=== PATIENT | male | born 1960 | race Caucasian/White ===

== ENCOUNTER 2020-06-11 13:15 | Observation (INO) | payer OTHER ==
[2020-06-11] MEDS ORDERED: ADENOSINE 6 MG/ 2ML VIAL IV ONE ×3 (13:39→13:41)
[2020-06-11] MEDS ORDERED: NA CHLORIDE 0.9% 1,000 ML ONE (13:39)
[2020-06-11 13:46] LABS: Basophils % 0.6 % (0-1.3); Hematocrit 47.7 % (39.6-49.0); Lymphocytes % 40.5 % (15.3-44.8); Protime INR 1.2; RBC Red Blood Cell Count 4.75 M/uL (4.33-5.43)
[2020-06-11] MEDS ORDERED: MIDAZOLAM HCL 2 MG/2 ML INJ ONE (13:48)
[2020-06-11] MEDS ORDERED: FENTANYL CITR 100 MCG/2 ML ONE (13:48)
[2020-06-11] MEDS ORDERED: MAGNESIUM SULFATE 1 gm IVPB 1 GM/100 ML BAG IV ONE (13:57)
[2020-06-11] MEDS ORDERED: METOPROLOL TAR 50 MG TAB ONE (13:59)
[2020-06-11 14:24] LABS: ALT/SGPT 57 U/L (12-78); Albumin 3.8 g/dL (3.4-5.0); Alkaline Phosphatase 68 U/L (45-117); BUN Blood Urea Nitrogen 8 mg/dL (7-18); Bicarbonate 25 mmol/L (21-32); Bilirubin Direct 0.8 mg/dL (0-0.2); Glucose Level 101 mg/dL (74-106); NT PRO-BNP 2687 pg/mL (<125); Protein, Total 8.2 g/dL (6.4-8.2); Sodium Level 141 mmol/L (136-145); Thyroid Stimulating Hormone 0.947 uIU/mL (0.360-3.740); Troponin (Emerg Dept Use Only) < 0.02 ng/mL (0.0-0.045)
[2020-06-11 14:25] LABS: AST/SGOT 82 U/L (15-37); Magnesium 1.8 mg/dL (1.8-2.4)
--- NOTE | 2020-06-11 14:54 | ER ---
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 Denies HX of heart ca1 attack. Reports Palpitations. Reports dizziness and lightheadness. States, "chest pain after lifting a stack of plywood, I got dizzy, almost blacked out and had severe chest pain since". 13:18 Coronavirus screen: Client denies travel out of the [place] in the last 14 days. At this ca1 time, the client does not indicate any symptoms associated with coronavirus-19. 13:18 Method Of Arrival: Wheelchair ca1 13:37 Ebola Screen: Patient denies travel to an Ebola-affected area in the 21 days before tw2 illness onset. Initial Sepsis Screen: Does the patient meet any 2 criteria? HR > 90 bpm. No. Patient's initial sepsis screen is negative. Does the patient have a suspected source of infection? No. Patient's initial sepsis screen is negative. Risk Assessment: Do you want to hurt yourself or someone else? Patient reports no desire to harm self or others. Onset of symptoms was June 11, 2020. 13:37 Acuity: RODNEY 1 tw2 Historical: - Allergies: 14:26 No Known Allergies; vg1 - Home Meds: 14:26 Xanax 0.25 mg oral tab [Active]; [place] 5-325 mg Oral tab [Active]; vg1 - PMHx: 14:26 Palpitations; Anxiety; Restless leg syndrome; vg1 - PSHx: 14:26 Disc surgery; Skull plates; vg1 - Immunization history:: Adult Immunizations up to date, Flu vaccine is up to date. - Social history:: Smoking status: Patient reports the use of cigarette tobacco products, smokes one-half pack cigarettes per day. Screenin:17 Abuse screen: Denies threats or abuse. Nutritional screening: No deficits noted. jl7 Tuberculosis screening: No symptoms or risk factors identified. Fall Risk None identified. Assessment: 13:20 General: Appears distressed, uncomfortable, Behavior is cooperative, anxious. Pain: vg1 Complains of pain in chest Pain does not radiate. Pain currently is 10 out of 10 on a pain scale. Pain began 2 hours ago. 13:20 Neuro: Level of Consciousness is awake, alert, obeys commands, Oriented to person, vg1 place, time, situation. Cardiovascular: Patient's skin is warm and dry. Pulses are all present. Respiratory: Reports shortness of breath patient placed on O2 at 3L NC Airway is patent Respiratory effort is even, unlabored, Respiratory pattern is regular, symmetrical, tachypnea. GI: No signs and/or symptoms were reported involving the gastrointestinal system. : No signs and/or symptoms were reported regarding the genitourinary system. EENT: No signs and/or symptoms were reported regarding the EENT system. Derm: Skin is intact, is healthy with good turgor, Skin is pink, warm \\T\\ dry. Musculoskeletal: Range of motion: intact in all extremities. 13:46 Reassessment: Received v/o from Dr Mcknight to administer metoprolol 50mg PO x1. vg1 14:05 Reassessment: Patient reports pain level 0/10. States feels better. vg1 15:00 Reassessment: Patient appears in no apparent distress at this time. Patient is alert, vg1 oriented x 3, equal unlabored respirations, skin warm/dry/pink. 16:15 Reassessment: Patient appears in no apparent distress at this time. Patient is alert, vg1 oriented x 3, equal unlabored respirations, skin warm/dry/pink. Patient states feeling better. 16:28 Reassessment: Gave report to Tavia TRAN. vg1 Vital Signs: 13:18 BP 101 / 65; Pulse 205; Resp 19; Pulse Ox 99% on R/A; tw2 13:18 Temp 97.9(O); tw2 13:32 Pulse 223; tw2 13:35 BP 107 / 85; Pulse 224; Resp 36; Pulse Ox 99% on 3 lpm NC; tw2 13:44 BP 160 / 108; Pulse 104; Resp 24 S; Pulse Ox 100% on 2 lpm NC; iw 14:27 BP 141 / 92; Pulse 82; Resp 19; Pulse Ox 100% ; jl7 14:45 BP 116 / 70; Pulse 68; Resp 12; Pulse Ox 100% on 2 lpm NC; jl7 14:48 Weight 88.45 kg (R); Height 6 ft. 0 in. (182.88 cm) (R); tw2 15:00 BP 94 / 83; Pulse 58; Resp 12; Pulse Ox 100% on 2 lpm NC; jl7 15:05 BP 94 / 83; Pulse 64; Resp 14; Pulse Ox 100% on 2 lpm NC; vg1 15:15 BP 127 / 95; Pulse 65; Resp 12; Pulse Ox 100% on R/A; jl7 15:30 BP 120 / 85; Pulse 62; Resp 12; Pulse Ox 99% on 2 lpm NC; jl7 15:45 BP 118 / 88; Pulse 60; Resp 14; Pulse Ox 99% on 2 lpm NC; jl7 16:00 BP 131 / 89; Pulse 62; Resp 12; Pulse Ox 100% on 2 lpm NC; jl7 14:48 Body Mass Index 26.45 (88.45 kg, 182.88 cm) tw2 13:18 provider at bedside, pt on EKG machine at this time. tw2 13:[address] Mcknight at bedside at this time. tw2 ED Course: 13:15 Patient arrived in ED. as 13:17 Patient has correct armband on for positive identification. Placed in gown. Bed in low jl7 position. Call light in reach. Side rails up X2. substation superintendent on. Pulse ox on. NIBP on. 13:17 Placed in gown. Bed in low position. substation superintendent on. Pulse ox on. NIBP on. pt tw2 placed on Coullck monitor at this time. 13:19 Jame Davalos NP is PHCP. pm1 13:19 Will Mcknight MD is Attending Physician. pm1 13:19 Inserted saline lock: 20 gauge in left antecubital area, using aseptic technique. tw2 ,using aseptic technique. CHELSEA Mar Blood collected. 13:19 Arm band placed on. tw2 13:20 Missed attempt(s): 20 gauge in right forearm. Bleeding controlled, band aid applied, tw2 catheter tip intact. Missed attempt(s): 20 gauge in right antecubital area. by CHELSEA King. Bleeding controlled, band aid applied, catheter tip intact. Patient maintains SpO2 saturation greater than 95% on room air. 13:37 Triage completed. tw2 13:38 Assist provider with cardioversion (synchronized) for treatment of SVT with 200 joules iw X 1. Set up for procedure. Performed by Will Mcknight MD Monitored with director of cardiac cath lab, pulse ox, Life Scottie . Post procedure rhythm is sinus rhythm. Patient tolerated well. 13:50 Sarai Banegas, CHELSEA is Primary Nurse. vg1 14:53 Saman Moore DO is Hospitalizing Provider. pm1 16:30 Patient admitted, IV remains in place. vg1 Administered Medications: 13:20 Drug: NS 0.9% 1000 ml Route: IV; Rate: 1000 ml; Site: left antecubital; iw 16:16 Follow up: IV Status: Completed infusion; IV Intake: 1000ml jl7 13:25 Drug: Adenocard 6 mg Route: IVP; Site: left antecubital; iw 16:17 Follow up: Response: Cardiac rhythm changed jl7 13:30 Drug: Adenocard 12 mg Route: IVP; Site: left antecubital; iw 16:15 Follow up: Response: Cardiac rhythm is unchanged jl7 13:43 Drug: Magnesium Sulfate 1 grams Route: IVPB; Infused Over: 1 hrs; Site: left iw antecubital; 16:16 Follow up: IV Status: Completed infusion; IV Intake: 100ml jl7 13:49 Drug: Metoprolol 50 mg Route: PO; vg1 15:05 Follow up: BP 94 / 83; Pulse 64 bpm; Resp 14 bpm; Pulse Ox 100% 2 lpm Nasal Cannula vg1 13:57 Not Given (Duplicate Order): Metoprolol TARTRATE (Lopressor) 50 mg PO once iw 15:00 Drug: Lovenox 1 mg/kg Route: Sub-Q; Site: right lower abdomen; vg1 16:14 Follow up: Response: No adverse reaction jl7 Intake: 16:16 IV: 100ml; Total: 100ml. jl7 16:16 IV: 1000ml; Total: 1100ml. jl7 Outcome: 14:53 Decision to Hospitalize by Provider. pm1 16:28 Admitted to Tele accompanied by tech, via stretcher, room 219, with oxygen, Report vg1 called to Syeda TRAN 16:28 Condition: stable 16:28 Instructed on the need for admit. 16:31 Patient left the ED. 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 Denies HX of heart ca1 attack. Reports Palpitations. Reports dizziness and lightheadness. States, "chest pain after lifting a stack of plywood, I got dizzy, almost blacked out and had severe chest pain since" ca1
--- NOTE | 2020-06-11 14:54 | EDPHYS ---
Physician Documentation [facility] Name: Joe Ricks Age: 60 yrs Sex: Male : 1960 Arrival Date: 06/11/2020 Time: 13:15 Bed 3 Private MD: ED Physician Will Mcknight HPI: 06/11 13:29 This 60 yrs old Male presents to ER via Wheelchair with complaints of Chest pm1 Pain. 13:29 The patient or guardian reports chest pain that is located primarily in the mid-sternal pm1 area. Onset: 1 hour(s) ago. The pain does not radiate. Associated signs and symptoms: Pertinent positives: dizziness, near-syncope, palpitations, shortness of breath, Pertinent negatives: abdominal pain, headache. The chest pain is described as a pressure. Duration: The patient or guardian reports a single episode, that is still ongoing. Modifying factors: The symptoms are alleviated by nothing. the symptoms are aggravated by Onset after lifting. Severity of pain: in the emergency department the pain is unchanged. Last episode of palpitations was about 8 months ago that self resolved after talking a walk. The patient has not recently seen a physician, the patient's primary care provider is Dr. Mays. Historical: - Allergies: 14:26 No Known Allergies; vg1 - Home Meds: 14:26 Xanax 0.25 mg oral tab [Active]; [place] 5-325 mg Oral tab [Active]; vg1 - PMHx: 14:26 Palpitations; Anxiety; Restless leg syndrome; vg1 - PSHx: 14:26 Disc surgery; Skull plates; vg1 - Immunization history:: Adult Immunizations up to date, Flu vaccine is up to date. - Social history:: Smoking status: Patient reports the use of cigarette tobacco products, smokes one-half pack cigarettes per day. ROS: 14:29 Constitutional: Negative for fever, chills, and weight loss, Eyes: Negative for injury, pm1 pain, redness, and discharge, ENT: Negative for injury, pain, and discharge, Neck: Negative for injury, pain, and swelling. 14:29 Abdomen/GI: Negative for abdominal pain, nausea, vomiting, diarrhea, and constipation, Back: Negative for injury and pain, MS/Extremity: Negative for injury and deformity, Skin: Negative for injury, rash, and discoloration. 14:29 Cardiovascular: Positive for chest pain, palpitations, Negative for edema. 14:29 Respiratory: Positive for shortness of breath, Negative for 14:29 Neuro: Positive for dizziness, near syncope. Exam: 14:29 Head/Face: Normocephalic, atraumatic. pm1 14:29 Back: No spinal tenderness. No costovertebral tenderness. Full range of motion. Skin: Warm, dry with normal turgor. Normal color with no rashes, no lesions, and no evidence of cellulitis. MS/ Extremity: Pulses equal, no cyanosis. Neurovascular intact. Full, normal range of motion. 14:29 Constitutional: The patient appears alert, awake, non-diaphoretic, non-toxic, well developed, well hydrated, well groomed, well nourished, uncomfortable. 14:29 Cardiovascular: Rate: tachycardic, actual rate is 220 bpm, Rhythm: regular, Edema: is not appreciated. 14:29 ECG was reviewed by the Attending Physician. 14:29 Respiratory: Exam negative for acute changes, the patient does not display signs of respiratory distress, Respirations: no acute changes. 14:29 Neuro: Exam negative for acute changes, Orientation: is normal, Mentation: is normal, Motor: is normal, moves all fours. Vital Signs: 13:18 BP 101 / 65; Pulse 205; Resp 19; Pulse Ox 99% on R/A; tw2 13:18 Temp 97.9(O); tw2 13:32 Pulse 223; tw2 13:35 BP 107 / 85; Pulse 224; Resp 36; Pulse Ox 99% on 3 lpm NC; tw2 13:44 BP 160 / 108; Pulse 104; Resp 24 S; Pulse Ox 100% on 2 lpm NC; iw 14:27 BP 141 / 92; Pulse 82; Resp 19; Pulse Ox 100% ; jl7 14:45 BP 116 / 70; Pulse 68; Resp 12; Pulse Ox 100% on 2 lpm NC; jl7 14:48 Weight 88.45 kg (R); Height 6 ft. 0 in. (182.88 cm) (R); tw2 15:00 BP 94 / 83; Pulse 58; Resp 12; Pulse Ox 100% on 2 lpm NC; jl7 15:05 BP 94 / 83; Pulse 64; Resp 14; Pulse Ox 100% on 2 lpm NC; vg1 15:15 BP 127 / 95; Pulse 65; Resp 12; Pulse Ox 100% on R/A; jl7 15:30 BP 120 / 85; Pulse 62; Resp 12; Pulse Ox 99% on 2 lpm NC; jl7 15:45 BP 118 / 88; Pulse 60; Resp 14; Pulse Ox 99% on 2 lpm NC; jl7 16:00 BP 131 / 89; Pulse 62; Resp 12; Pulse Ox 100% on 2 lpm NC; jl7 14:48 Body Mass Index 26.45 (88.45 kg, 182.88 cm) tw2 13:18 provider at bedside, pt on EKG machine at this time. tw2 13:[address] Mcknight at bedside at this time. tw2 Procedures: 13:44 Cardioversion: (synchronized) for treatment of SVT, with 200 joules X 1. Post admitted attorneys rhythm is sinus rhythm, the patient tolerated the procedure well. Moderate sedation: Pre-procedure assessment: the patient has been NPO 3 hour(s) prior to arrival, ASA physical classification: I - healthy, no underlying organic disease, Airway assessment: able to hyperextend neck, able to maintain airway, can open mouth without difficulty, Monitoring during procedure: quality assurance monitor body, continuous pulse oximetry, nurse at bedside at all times, Medications employed: Fentanyl, 100 mcg(s), Versed, 2 mg(s), Post-procedure assessment: the patient is mildly sedated, a reversal agent was not used. MDM: 13:19 Patient medically screened. pm1 13:46 Data reviewed: vital signs. Data interpreted: Pulse oximetry: on 2L(s) per nasal pm1 canula, is 99 %. Interpretation:. 14:40 Physician consultation: Francois Peraza MD was called at 14:32, was contacted at 14:38, pm1 regarding consult, patient's condition, and will see patient in ED, Explained that the patient wanted to go home. I would like to keep the patient due to presenting diagnosis and the need to shock the patient due to hypotension. Dr. Peraza recommends keeping the patient for observation to rule out atrial fibrillation since patient did not respond to adenocard administration. 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 We also discussed medication prescription plan for the patient provided he does not want to stay. 14:51 Counseling: I had a detailed discussion with the patient and/or guardian regarding: the pm1 historical points, exam findings, and any diagnostic results supporting the discharge/admit diagnosis, lab results, radiology results, the need for further work-up and treatment in the hospital, Patient agreed to stay in the hospital and understands the concerns for further evaluation and treatment. 15:15 Physician consultation: Saman Moore DO was contacted at 15:15, regarding and will see pm1 patient in ED. 06/11 13:23 Order name: Basic Metabolic Panel pm1 06/11 13:23 Order name: CBC with Diff pm1 06/11 13:23 Order name: LFT's pm1 06/11 13:23 Order name: Magnesium pm1 06/11 13:23 Order name: NT PRO-BNP pm1 06/11 13:23 Order name: PT-INR pm1 06/11 13:23 Order name: Troponin (emerg Dept Use Only) pm1 06/11 13:24 Order name: UDS pm1 06/11 13:24 Order name: TSH pm1 06/11 13:52 Order name: CBC with Automated Diff; Complete Time: 13:57 EDMS 06/11 13:53 Order name: Protime (+INR); Complete Time: 13:57 EDMS 06/11 14:26 Order name: Basic Metabolic Panel; Complete Time: 14:26 EDMS 06/11 14:26 Order name: Liver (Hepatic) Function; Complete Time: 14:26 EDMS 06/11 14:26 Order name: Troponin (Emerg Dept Use Only); Complete Time: 14:26 EDMS 06/11 13:23 Order name: XRAY Chest (1 view) pm1 06/11 13:23 Order name: EKG; Complete Time: 13:24 pm1 06/11 13:23 Order name: Cardiac monitoring; Complete Time: 13:34 pm1 06/11 14:26 Order name: NT PRO-BNP; Complete Time: 14:26 EDMS 06/11 14:26 Order name: Magnesium; Complete Time: 14:26 EDMS 06/11 14:26 Order name: Thyroid Stimulating Hormone; Complete Time: 14:26 EDMS 06/11 14:45 Order name: COVID-19 pm1 06/11 15:07 Order name: RAD; Complete Time: 15:13 EDMS 06/11 15:49 Order name: CORONAVIRUS EDSC 06/11 13:23 Order name: EKG - Nurse/Tech; Complete Time: 13:34 pm1 06/11 13:23 Order name: IV Saline Lock; Complete Time: 13:34 pm1 06/11 13:23 Order name: Labs collected and sent; Complete Time: 13:34 pm1 06/11 13:23 Order name: O2 Per Protocol; Complete Time: 13:37 pm1 06/11 13:23 Order name: O2 Sat Monitoring; Complete Time: 13:37 pm1 Administered Medications: 13:20 Drug: NS 0.9% 1000 ml Route: IV; Rate: 1000 ml; Site: left antecubital; iw 16:16 Follow up: IV Status: Completed infusion; IV Intake: 1000ml jl7 13:25 Drug: Adenocard 6 mg Route: IVP; Site: left antecubital; iw 16:17 Follow up: Response: Cardiac rhythm changed jl7 13:30 Drug: Adenocard 12 mg Route: IVP; Site: left antecubital; iw 16:15 Follow up: Response: Cardiac rhythm is unchanged jl7 13:43 Drug: Magnesium Sulfate 1 grams Route: IVPB; Infused Over: 1 hrs; Site: left iw antecubital; 16:16 Follow up: IV Status: Completed infusion; IV Intake: 100ml jl7 13:49 Drug: Metoprolol 50 mg Route: PO; vg1 15:05 Follow up: BP 94 / 83; Pulse 64 bpm; Resp 14 bpm; Pulse Ox 100% 2 lpm Nasal Cannula vg1 13:57 Not Given (Duplicate Order): Metoprolol TARTRATE (Lopressor) 50 mg PO once iw 15:00 Drug: Lovenox 1 mg/kg Route: Sub-Q; Site: right lower abdomen; vg1 16:14 Follow up: Response: No adverse reaction jl7 Disposition: 17:03 Co-signature as Attending Physician, Will Mcknight MD. rn Disposition: 06/11/20 14:53 Hospitalization ordered by Saman Moore for Observation. Preliminary diagnosis are Supraventricular tachycardia, Chest pain, unspecified. - Bed requested for Telemetry/MedSurg (observation). - Status is Observation. vg1 - Condition is Stable. - Problem is new. - Symptoms have improved. Signatures: Dispatcher [employer] Linda Samayoa, RN Isabela Casanova RN RN iw Nieto, Roman, MD MD rn Marinas, Patrick, CAR HIKER CAR HIKER pm1 Sarai Banegas, RN RN vg1 Frederick Figueredo RN jl7 Corrections: (The following items were deleted from the chart) 16:01 14:53 Hospitalization Ordered by Saman Moore DO for Observation. Preliminary dw diagnosis is Supraventricular tachycardia; Chest pain, unspecified. Bed requested for Telemetry/MedSurg (observation). Status is Observation. Condition is Stable. Problem is new. Symptoms have improved. pm1 16:31 16:01 06/11/2020 14:53 Hospitalization Ordered by Saman Moore DO for Observation. vg1 Preliminary diagnosis is Supraventricular tachycardia; Chest pain, unspecified. Bed requested for Telemetry/MedSurg (observation). Status is Observation. Condition is Stable. Problem is new. Symptoms have improved. dw
--- NOTE | 2020-06-11 15:05 | RAD REPORT ---
EXAM DESCRIPTION: RAD - Chest Single View - 06/11/2020 2:52 pm CLINICAL HISTORY: CHEST PAIN Chest pain. COMPARISON: No comparisons FINDINGS: Portable technique limits examination quality. The lungs are grossly clear. The heart is upper limit of normal in size. No displaced fractures. IMPRESSION: No acute intrathoracic process suspected.
[2020-06-11] MEDS ORDERED: ENOXAPARIN 100 MG/ML SYR SQ ONE (15:06)
--- NOTE | 2020-06-11 16:40 | CON ---
Date of Consultation: 06/11/2020 Reason For Consultation: Tachycardia. History Of Present Illness: This is a 60-year-old male, no cardiac history, was working at his home, heavy lifting some trees, started to feel dizzy, had to stop and then he felt his heart palpitations and was dizzy. He had some chest tightness. In the emergency room, he was found to have narrow com plex tachycardia; however, they tried to give him adenosine twice and did not convert and blood press ure was in the low 100 systolic. Was unstable and required electrical cardioversion, went back into sinus rhythm and since that time, he has been feeling well. The patient denies having any exertional chest pain or shortness of breath or any cardiac problems. Past Medical History: Chronic back pain. Medications: Refer to reconciliation sheet for detailed list. Allergies: NO KNOWN DRUG ALLERGIES. Family History: No premature coronary artery disease or cancer. Social History: He smokes half a pack per day. Does not drink or use any drugs. Review of Systems: All systems reviewed and they were negative except for what mentioned in the HPI. Physical Examination: Vital Signs: Reviewed and are stable. Head and Neck: Pupils are equal, reactive to light. Intact eye movements. No JVD. No cervical lym phadenopathy. Neck: Supple. Thyroid is not enlarged. Lungs: Clear to auscultation bilaterally. No rhonchi, rales, or crackles. No accessory muscle use. Heart: Regular rate and rhythm. No extra sounds. Abdomen: Soft, nontender. Bowel sounds positive. No organomegaly. No masses or hernia. No rigidi ty or rebound. Extremities: No edema, clubbing, or cyanosis. Intact pulses. Skin: No rash noted. Neurologic: Alert, awake, oriented x3. No acute focal deficits appreciated. Lymph Nodes: No cervical or axillary lymphadenopathy. Investigations: Sodium is 141, creatinine is 1.80. Troponin less than 0.02. BNP was 2687. Hemoglo bin is 16.7. Assessment And Plan: 1.Narrow complex tachycardia, very fast heart rate at 220, was hemodynamically unstable, required el ectrical cardioversion. Recommend start him on Eliquis 5 mg twice a day, metoprolol 25 mg twice a da y. Monitor on telemetry. Do serial sets of cardiac enzymes and please obtain echocardiogram[facility] upon results of the above. 2.Smoking. The patient was counseled. /LEAH Voice ID: [id number] Report ID: [id number]
[2020-06-11 16:50] VITALS: BMI 25.5
[2020-06-11] MEDS ORDERED: ALPRAZOLAM 0.25 MG TABLET PO PRN (16:52)
[2020-06-11] MEDS ORDERED: ONDANSETRON 4 MG/2 ML VIAL IV PRN (16:52)
[2020-06-11] MEDS ORDERED: HYDROCODONE/APAP 5/325 MG TAB PO PRN (16:52)
[2020-06-11] MEDS ORDERED: ACETAMINOPHEN 500 MG TAB PO PRN (16:52)
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
[2020-06-11] MEDS: METOPROLOL TAR 25 MG TAB PO SCH (17:50)
[2020-06-11] MEDS: HYDROCODONE/APAP 7.5/325 MG TAB PO PRN (17:51)
[2020-06-11] MEDS: APIXABAN 5 MG TABLET PO SCH (20:05)
[2020-06-11 20:21] LABS: CKMB Creatine Kinase MB 2.5 ng/mL (0.3-3.6); Troponin I 0.23 ng/mL (0.0-0.045)
[2020-06-11] MEDS ORDERED: ROPINIROLE HCL 0.25 MG TAB PO SCH (21:00)
[2020-06-11] MEDS ORDERED: ALPRAZOLAM 0.5 MG TABLET PO PRN (21:21)
[2020-06-12] MEDS ORDERED: MELATONIN 5 MG TABLET PO PRN (00:47)
[2020-06-12 04:18] LABS: Absolute Lymphocytes (CBC) 2.4 K/uL (0.7-4.9); Basophils % 0.4 % (0-1.3); Hematocrit 34.3 % (39.6-49.0); MPV 9.2 fL (7.6-11.3); RBC Red Blood Cell Count 3.46 M/uL (4.33-5.43)
[2020-06-12 04:33] LABS: CKMB Creatine Kinase MB 2.1 ng/mL (0.3-3.6); Troponin I 0.21 ng/mL (0.0-0.045)
[2020-06-12 04:36] LABS: BUN Blood Urea Nitrogen 10 mg/dL (7-18); Bicarbonate 27 mmol/L (21-32); Glucose Level 92 mg/dL (74-106); HDL Cholesterol 48 mg/dL (40-60); LDL Cholesterol, Calculated 38 (<130); Magnesium 1.8 mg/dL (1.8-2.4); Potassium 3.5 mmol/L (3.5-5.1); Sodium Level 141 mmol/L (136-145)
[2020-06-12] MEDS: HYDROCODONE/APAP 7.5/325 MG TAB PO PRN ×2 (04:40→12:13)
[2020-06-12] MEDS ORDERED: POTASSIUM CL SA 10 MEQ TAB PO ONE (04:51)
[2020-06-12] MEDS ORDERED: MAGNESIUM SULFATE 1 gm IVPB 1 GM/100 ML BAG IV ONE (04:52)
[2020-06-12 04:59] LABS: Blood Morphology Comment NOT SEEN (NOT SEEN); Platelet Estimate DECR
[2020-06-12 05:28] LABS: Barbiturates NEGATIVE (NEGATIVE); Benzodiazepines POSITIVE (NEGATIVE); Cocaine NEGATIVE (NEGATIVE); METHAMPHETAM NEGATIVE (NEGATIVE); Methadone NEGATIVE (NEGATIVE); Opiates POSITIVE (NEGATIVE); Phencyclidine NEGATIVE (NEGATIVE); THC Cannibis NEGATIVE (NEGATIVE)
[2020-06-12] MEDS: METOPROLOL TAR 25 MG TAB PO SCH (05:36)
[2020-06-12 08:38] LABS: Absolute Lymphocytes (CBC) 2.3 K/uL (0.7-4.9); Basophils % 0.5 % (0-1.3); Hematocrit 36.8 % (39.6-49.0); Lymphocytes % 60.1 % (15.3-44.8); MPV 9.3 fL (7.6-11.3); RBC Red Blood Cell Count 3.64 M/uL (4.33-5.43)
[2020-06-12] MEDS: APIXABAN 5 MG TABLET PO SCH (09:00)
[2020-06-12 10:50] VITALS: O2SAT 96
[2020-06-12 12:21] VITALS: BP 132/65; TEMP 97.9
--- NOTE | 2020-06-12 12:42 | EKG ---
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
--- NOTE | 2020-06-12 13:05 | P.DS ---
Admission Date: 06/11/20 Discharge Date: 06/12/20 Primary Care Provider: Dr. Mays Disposition: ROUTINE DISCHARGE Discharge Condition: GOOD Reason for Admission: Chest pain Consultations: Cardiology-Dr. Peraza Procedures: Medical problem list: Narrow complex tachycardia status post medications/cardioversion now normal sinus rhythm Chronic pain Tobacco abuse Brief History of Present Illness: 60-year-old male with history of chronic pain presented to the emergency room with chest pain. Patient reported chest pain today. It was associated with some palpitation. Patient denied any nausea, vomiting. Denied any significant shortness of breath. He came to the ER for further evaluation. In the ER patient was found to be in narrow complex tachycardia. Rate was around 220. Patient received Adenosine 6 mg then 12 mg without change. Heart rate continue to be elevated with low blood pressure. Patient was cardioverted x1 with resolution of accelerated heart rate. Patient in normal sinus rhythm at this time. ER discuss case with cardiology. Patient will be admitted for further evaluation and monitoring. Lab shows normal troponin. CBC unremarkable. BMP stable. Hospital Course: Patient presented with chest pain and palpitation. Patient was found to have narrow complex tachycardia. SVT was suspected. Patient was given Adenosine without change. The patient then had a cardioversion which returned his rhythm to normal sinus rhythm. The patient was monitored. Patient has done well Overnite. Cardiology was consulted. Echocardiogram unremarkable. Patient was placed on anti coagulation therapy and metoprolol. At discharge the patient will continue with Eliquis 5 mg 1 pill twice daily. Education on Eliquis will be provided. Patient will likely require medication for at least 1 month. The patient will also continue with metoprolol 25 mg 1 pill twice daily. Recommend follow up with cardiology in 1-2 weeks to follow up this hospitalization and continue his care. Patient with chronic pain. Patient will continue with his current medications. Recommend follow up with his PCP to further address. Patient with tobacco abuse. Tobacco cessation education provided. Vital Signs/Physical Exam: Temp Pulse Resp BP Pulse Ox 97.9 F 58 16 132/65 96 06/12/20 12:00 06/12/20 12:00 06/12/20 12:00 06/12/20 12:00 06/12/20 12:00 General: Alert, In no apparent distress, Oriented x3, Cooperative HEENT: Atraumatic Neck: Supple Respiratory: Clear to auscultation bilaterally, Normal air movement Cardiovascular: Normal pulses, Regular rate/rhythm Gastrointestinal: Normal bowel sounds, Soft and benign, Non-distended, No tenderness, No masses, No rebound, No guarding Neurological: Normal speech, Normal strength at 5/5 x4 extr, Normal tone, Normal affect Laboratory Data at Discharge: WBC 3.9 K/uL (4.3-10.9) L 06/12/20 07:06 Hgb 12.9 g/dL (13.6-17.9) L 06/12/20 07:06 Hct 36.8 % (39.6-49.0) L 06/12/20 07:06 Plt Count 81 K/uL (152-406) L 06/12/20 07:06 PT 14.1 SECONDS (9.5-12.5) H 06/11/20 13:30 INR 1.20 06/11/20 13:30 Sodium 141 mmol/L (136-145) 06/12/20 03:57 Potassium 3.5 mmol/L (3.5-5.1) 06/12/20 03:57 BUN 10 mg/dL (7-18) 06/12/20 03:57 Creatinine 0.81 mg/dL (0.55-1.3) 06/12/20 03:57 Glucose 92 mg/dL (74-106) 06/12/20 03:57 Magnesium 1.8 mg/dL (1.8-2.4) 06/12/20 03:57 Total Bilirubin 2.0 mg/dL (0.2-1.0) H 06/11/20 13:30 AST 82 U/L (15-37) H 06/11/20 13:30 ALT 57 U/L (12-78) 06/11/20 13:30 Alkaline Phosphatase 68 U/L (45-117) 06/11/20 13:30 Troponin I 0.21 ng/mL (0.0-0.045) H 06/12/20 03:57 Triglycerides 42 mg/dL (<150) 06/12/20 03:57 Cholesterol 94 mg/dL (<200) 06/12/20 03:57 HDL Cholesterol 48 mg/dL (40-60) 06/12/20 03:57 Cholesterol/HDL Ratio 1.96 06/12/20 03:57 Home Medications: ALPRAZolam [Xanax*] 0.25 mg PO TID PRN 06/11/20 Hydrocodone 7.5/APAP 325 [[place] 7.5/325 mg*] 1 tab PO Q6H PRN 06/11/20 Pregabalin [Lyrica*] 50 mg PO BEDTIME 06/11/20 Apixaban [Eliquis] 5 mg PO BID #60 tablet 06/12/20 Metoprolol Tartrate 25 mg PO BID #60 tablet 06/12/20 New Medications: Apixaban [Eliquis] 5 mg PO BID #60 tablet Metoprolol Tartrate 25 mg PO BID #60 tablet Patient Discharge Instructions: 1. Recommend follow up with PCP in 1 week to follow up this hospitalization. 2. Patient presented with chest pain and palpitation. Patient was found to have narrow complex tachycardia. SVT was s uspected. Patient was given Adenosine without change. The patient then had a cardioversion which returned his rhythm to normal sinus rhythm. The patient was monitored. Patient has done well Overnite. Cardiology was consulted. Echocardiogram unremarkable. Patient was placed on anti coagulation therapy and metoprolol. At discharge the patient will continue with Eliquis 5 mg 1 pill twice daily. Education on Eliquis will be provided. Patient will likely require medication for at least 1 month. The patient will also continue with metoprolol 25 mg 1 pill twice daily. Recommend follow up with cardiology in 1-2 weeks to follow up this hospitalization and continue his care. 3. Patient with chronic pain. Patient will continue with his current medications. Recommend follow up with his PCP to further address. 4. Patient with tobacco abuse. Tobacco cessation education provided. Diet: AHA Activity: Ad mindy Followup: NONE,NONE [Primary Care Provider] - Time spent managing pt's care (in minutes): 55
--- NOTE | 2020-06-12 13:54 | ECHO ---
HEIGHT: 6 ft 0 in WEIGHT: 188 lb 3.2 oz DATE OF STUDY: 06/12/[address]: Saman Moore DO 2-DIMENSIONAL: YES M.MODE: YES DOPPLER: YES COLOR FLOW: YES TDS: PORTABLE: DEFINITY: BUBBLE STUDY: DIAGNOSIS: SUPRAVENTRICULAR TACHYCARDIA CARDIAC HISTORY: CATHERIZATION: NO SURGERY: NO PROSTHETIC VALVE: NO PACEMAKER: NO MEASUREMENTS (cm) DIASTOLIC (NORMALS) SYSTOLIC (NORMALS) IVSd 1.0 (0.6-1.2) LA Diam 3.3 (1.9-4.0) LVEF 50% LVIDd 5.5 (3.5-5.7) LVIDs 4.1 (2.0-3.5) %FS 26% LVPWd 1.2 (0.6-1.2) Ao Diam 3.2 (2.0-3.7) 2 DIMENSIONAL ASSESSMENT: RIGHT ATRIUM: LEFT ATRIUM: RIGHT VENTRICLE: LEFT VENTRICLE: TRICUSPID VALVE: MITRAL VALVE: PULMONIC VALVE: AORTIC VALVE: PERICARDIAL EFFUSION: AORTIC ROOT: LEFT VENTRICULAR WALL MOTION: DOPPLER/COLOR FLOW: COMMENTS: NORMAL 2-DIMENSIONAL ECHOCARDIOGRAM WITH DOPPLER. NO MITRAL VALVE PROLAPSE. NO EFFUSION. TECHNOLOGIST: ADRI REYNA
--- NOTE | 2020-06-17 11:14 | PN ---
Subjective: The patient admitted on 06/11/[address] Peraza. He was admitted for SVT, pos sible atrial flutter. He is on beta-blockers and Eliquis. Overnight, he is back in sinus rhythm to sinus tachycardia. No cardiac complaint. Echocardiogram which was done was normal. He is on beta b locker ad Eliquis. The case was discussed with Dr. Moore. The patient can go home today. I think he should have an MPI done as an outpatient. If he remains in and out of atrial fibrillation and atr ial flutter or SVT, we should consider sotalol or cardioversion. GINA/LEAH Voice ID: [id number] Report ID: [id number]
== END 2020-06-12 13:55 | disposition home or self-care (01) ==
LOC: ER 13:15 → ERHOLD 15:42 → 2ND 16:28
PROVIDERS: ADMIT Family Medicine; ATTEND Family Medicine
DX: I47.1 Supraventricular tachycardia (principal); G89.29 Other chronic pain; F41.9 Anxiety disorder, unspecified; G47.00 Insomnia, unspecified; M54.9 Dorsalgia, unspecified; F17.210 Nicotine dependence, cigarettes, uncomplicated; Z20.828 Contact with and (suspected) exposure to other viral communicable diseases; R94.31 Abnormal electrocardiogram [ECG] [EKG]
CPT/HCPCS: 92960; 96365; 93005 ×2; 93306; 85025 ×3; 80048 ×2; 36415; 83735 ×2; 82550 ×2; 83615; 85610; 80061; 80076; 80307 ×8; 84443 ×2; 84484 ×3; 82553 ×2; 84439; 83010; 83880; 71045; 96375; 96372; 99291; 96366; U0003; J0153 ×2; J2250; J3010; J3475 ×2; J1650; J7030

== ENCOUNTER 2021-09-01 14:55 | Emergency (ER) | payer OTHER ==
--- OUTSIDE RECORDS SUMMARY | 2021-09-01 14:57 | XMS REPORT | Continuity of Care Document ---
:1960 Author Organization [facility] t Address [address] [place] [address] Care Team Providers Name Role Phone Hernan Attending Clinician Unavailable KOVACEV_T Attending Clinician Unavailable KOVACEV_T Admitting Clinician Unavailable Payers Payer Name Policy Type Policy Number Effective Date Expiration Date [employer] [id number] 2020 [facility] PL[facility] - 00:00:00 [facility] (MEDICAID HMO) Problems This patient has no known problems. Allergies, Adverse Reactions, Alerts This patient has no known allergies or adverse reactions. Medications This patient has no known medications. Procedures This patient has no known procedures. Encounters Start End Encounter Admission Attending Care Care Encounter Source Date/Time Date/Time Type Type Clinicians Facility Department ID 2021-08-[address] [facility] [id number] [facility] [address] 14:50:01 [facility] 2021-07-[address] [facility] [id number] [facility] 13[facility]43:09 [facility] 2021-07-[address] [facility] [id number] [facility] 12:54:53 [facility] [id number] [facility] 2021-07-[address] [facility] [id number] [facility] 12[facility]42:31 [facility] [address] [facility] 2021-07-[address] [facility] [id number] [facility] [address] 12:36:42 Luc[facility] [id number] [facility] 2021-08-21 2021-08-21 ambulatory [facility] [id number] [facility] 2021-05-21 2021-05-21 ambulatory [facility] [id number] [facility] 2021-05-20 2021-05-20 ambulatory [facility] [id number] [facility] 2021-05-20 2021-05-20 ambulatory [facility] [id number] [facility] 2021-02-13 2021-02-13 Outpatient [facility] [id number] [facility] 2020-12-20 2020-12-20 Outpatient [facility] [id number] [facility] 2020-10-25 2020-10-25 Outpatient [facility] [id number] [facility] 2020-10-24 2020-10-24 Outpatient [facility] [id number] [facility] 2020-10-10 2020-10-10 Outpatient [facility] [id number] [facility] 2020-10-09 2020-10-09 Outpatient [facility] [id number] [facility] 2020-09-10 2020-09-10 Outpatient KOVACEV_T [facility] [id number] [place] 04:49:00 04:49:[id number] 2020-09-03 2020-09-03 Outpatient [facility] [id number] [facility]00 [facility] 2020-08-24 2020-08-24 Outpatient [facility] [id number] [facility] 00:00:00 00:00:00 [facility] Results This patient has no known results.
[2021-09-01 15:22] LABS: Absolute Lymphocytes (CBC) 1.9 K/uL (0.7-4.9); Hematocrit 40.6 % (39.6-49.0); Lymphocytes % 42.1 % (15.3-44.8); MPV 8.2 fL (7.6-11.3); RBC Red Blood Cell Count 3.89 M/uL (4.33-5.43)
[2021-09-01 15:28] LABS: Protime INR 1.29
[2021-09-01] MEDS ORDERED: NA CHLORIDE 0.9% 1,000 ML ONE (15:32)
[2021-09-01] MEDS ORDERED: TETANUS & DIPHTHERIA TOX,ADULT 0.5 ML VIAL ONE (15:32)
[2021-09-01] MEDS ORDERED: NA CHLORIDE 0.9% 100 ML IV ONE (15:32)
[2021-09-01] MEDS ORDERED: CEFAZOLIN SODIUM 1 GM/VIAL ONE (15:32)
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
[2021-09-01] MEDS ORDERED: ONDANSETRON 4 MG/2 ML VIAL ONE (15:41)
[2021-09-01] MEDS ORDERED: MORPHINE 4 MG/ML SYR ONE (15:41)
[2021-09-01 15:43] LABS: Albumin 3.4 g/dL (3.4-5.0); Bilirubin Total 2.1 mg/dL (0.2-1.0); Magnesium 1.9 mg/dL (1.8-2.4); Potassium 3.6 mmol/L (3.5-5.1); Protein, Total 7.9 g/dL (6.4-8.2); Troponin High Sensitivity 5.9 pg/mL (<58.9)
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
[2021-09-01] MEDS ORDERED: CEPHALEXIN 250 MG CAP ONE (16:29)
[2021-09-01] MEDS ORDERED: HYDROCODONE/APAP 10/325 TAB ONE (16:39)
[2021-09-01 17:10] VITALS: TEMP 98
[2021-09-01 17:11] VITALS: BP 141/76; O2SAT 99
== END 2021-09-01 16:52 | disposition home or self-care (01) ==
LOC: ER 14:55
DX: S42.191A Fracture of other part of scapula, right shoulder, initial encounter for closed fracture (principal); X95.9XXA Assault by unspecified firearm discharge, initial encounter; K74.60 Unspecified cirrhosis of liver; Z23 Encounter for immunization; F41.9 Anxiety disorder, unspecified; F17.210 Nicotine dependence, cigarettes, uncomplicated
CPT/HCPCS: 96361; 93005; 85025; 80048; 36415; 83735; 85610; 80076; 84484; 83880; 70450; 72125; 71260; 74177; 71045; 90471; 90714; 96374; 99285; Q9967; J7030; J2405; J0690

== ENCOUNTER 2024-02-16 14:00 | Inpatient (IN) | payer OTHER ==
--- OUTSIDE RECORDS SUMMARY | 2024-02-16 14:03 | XMS REPORT | Continuity of Care Document ---
Author Name Unknown Address [address] [facility] [address] [place] [address] [facility] Address [address] [facility] [address] [place] [address] Care Team Providers Care Enterostomal Nurse Name Role Phone Lucie Becerra Attending Clinician Unavailable KRAIG Attending Clinician Unavailable MATTHEW Attending Clinician Unavailable Lance Varela Attending Clinician [phone] KRAIG Admitting Clinician Unavailable MATTHEW Admitting Clinician Unavailable Payers Payer Name Policy Type Policy Number Effective Date Expirati on Date Source [facility] 53 [id number] [facility] (MEDICAID HMO) [id number] 2020 00:00:00 Problems Condition Name Condition Details Condition Category Status Onset Date Resolution Date Last Treatment Date Treating Clinician Comments Source [id number] Tachycardi a Problem [facility] Disorders of bilirubin excretion Elevated bilirubin Problem [facility] [id number] Atrial fibrillati on, unspecifie d type Problem [facility] PSVT (paroxysma l supraventr icular tachycardi a) PSVT (paroxysma l supraventr icular tachycardi a) Problem [facility] [id number] RLS (restless legs syndrome) Problem [facility] [id number] Primary insomnia Problem [facility] [id number] PSVT (paroxysma l supraventr icular tachycardi a) Problem [facility] [id number] Chronic hepatitis C without hepatic coma Problem [facility] [id number] Chronic pain syndrome Problem [facility] [id number] Anxiety Problem [facility] [id number] Anticoagul ation therapy continued upon discharge Problem [facility] [id number] Abnormal CBC Problem [facility] [id number] Anemia with low platelet count Problem [facility] [id number] Neutropeni a, unspecifie d type Problem [facility] [id number] Decreased platelet count Problem [facility] Social History Social Habit Start Date Stop Date Quantity Comments Source History of Tobacco Use Current Smoker [facility] Sex Assigned At [facility] Smoking Status Start Date Stop Date Source Heavy Tobacco Smoker [facility] Current Smoker 2023-12-23 00:00:00 [facility] Medications Ordered Medication Name Filled Medication Name Start Date Stop Date Current Medication? Ordering Clinician Indication Dosage Frequency Signature (SIG) Comments Components Source acetaminoph en 300 mg-codeine 30 mg tablet Take 1 tablet every 8 hours by oral route. acetaminoph en 300 mg-codeine 30 mg tablet Take 1 tablet every 8 hours by oral route. No 1 Q8H acetaminop hen 300 mg-codeine 30 mg tablet Take 1 tablet every 8 hours by oral route. [facility] QUEtiapine Fumarate 50 MG QUEtiapine Fumarate 50 MG No QUEtiapine Fumarate 50 MG rOPINIRole HCl 1 MG rOPINIRole HCl 1 MG No QD rOPINIRole HCl 1 MG Centrum Centrum No Centrum Metoprolol Tartrate 50 MG Metoprolol Tartrate 50 MG No 1{table t_with_ food} BID Metoprolol Tartrate 50 MG Gabapentin 300 MG Gabapentin 300 MG No 1{capsu le} BID Gabapentin 300 MG alprazolam 0.25 mg tablet TAKE 1 TABLET BY MOUTH TWICE A DAY alprazolam 0.25 mg tablet TAKE 1 TABLET BY MOUTH TWICE A DAY No alprazolam 0.25 mg tablet TAKE 1 TABLET BY MOUTH TWICE A DAY [facility] alprazolam 0.5 mg tablet TAKE 1 TABLET BY MOUTH TWICE A DAY alprazolam 0.5 mg tablet TAKE 1 TABLET BY MOUTH TWICE A DAY No alprazolam 0.5 mg tablet TAKE 1 TABLET BY MOUTH TWICE A DAY [facility] baclofen 20 mg tablet TAKE 1 TABLET BY MOUTH WITH FOOD OR MILK EVERY 8 HRS NEEDED baclofen 20 mg tablet TAKE 1 TABLET BY MOUTH WITH FOOD OR MILK EVERY 8 HRS NEEDED No baclofen 20 mg tablet TAKE 1 TABLET BY MOUTH WITH FOOD OR MILK EVERY 8 HRS NEEDED [facility] buspirone 5 mg tablet TAKE 1 TABLET BY MOUTH TWICE A DAY buspirone 5 mg tablet TAKE 1 TABLET BY MOUTH TWICE A DAY No buspirone 5 mg tablet TAKE 1 TABLET BY MOUTH TWICE A DAY [facility] cephalexin 500 mg capsule TAKE 1 CAPSULE BY MOUTH EVERY 6 HOURS FOR 10 DAYS FOR INFECTIOUS PROCEESS cephalexin 500 mg capsule TAKE 1 CAPSULE BY MOUTH EVERY 6 HOURS FOR 10 DAYS FOR INFECTIOUS PROCEESS No cephalexin 500 mg capsule TAKE 1 CAPSULE BY MOUTH EVERY 6 HOURS FOR 10 DAYS FOR INFECTIOUS PROCEESS [facility] clonazepam 0.5 mg tablet TAKE 1 TABLET BY MOUTH TWICE A DAY NEEDED FOR ANXIETY clonazepam 0.5 mg tablet TAKE 1 TABLET BY MOUTH TWICE A DAY NEEDED FOR ANXIETY No clonazepam 0.5 mg tablet TAKE 1 TABLET BY MOUTH TWICE A DAY NEEDED FOR ANXIETY [facility] cyclobenzap rine 5 mg tablet TAKE 1 TABLET BY MOUTH THREE TIMES DAILY NEEDED MUSCLE SPASMS cyclobenzap rine 5 mg tablet TAKE 1 TABLET BY MOUTH THREE TIMES DAILY NEEDED MUSCLE SPASMS No cyclobenza harleen 5 mg tablet TAKE 1 TABLET BY MOUTH THREE TIMES DAILY NEEDED MUSCLE SPASMS [facility] Eliquis 5 mg tablet TAKE 1 TABLET BY MOUTH TWICE A DAY Eliquis 5 mg tablet TAKE 1 TABLET BY MOUTH TWICE A DAY No Eliquis 5 mg tablet TAKE 1 TABLET BY MOUTH TWICE A DAY [facility] hydrocodone 10 mg-acetamin ophen 325 mg tablet TAKE 1 TABLET BY MOUTH TWICE A DAY NEEDED hydrocodone 10 mg-acetamin ophen 325 mg tablet TAKE 1 TABLET BY MOUTH TWICE A DAY NEEDED No hydrocodon e 10 mg-acetami nophen 325 mg tablet TAKE 1 TABLET BY MOUTH TWICE A DAY NEEDED [facility] hydrocodone 5 mg-acetamin ophen 325 mg tablet TAKE 1 TABLET BY MOUTH TWICE DAILY FOR 28 DAYS hydrocodone 5 mg-acetamin ophen 325 mg tablet TAKE 1 TABLET BY MOUTH TWICE DAILY FOR 28 DAYS No hydrocodon e 5 mg-acetami nophen 325 mg tablet TAKE 1 TABLET BY MOUTH TWICE DAILY FOR 28 DAYS [facility] hydrocodone 7.5 mg-acetamin ophen 325 mg tablet TAKE 1 TABLET BY MOUTH TWICE A DAY hydrocodone 7.5 mg-acetamin ophen 325 mg tablet TAKE 1 TABLET BY MOUTH TWICE A DAY No hydrocodon e 7.5 mg-acetami nophen 325 mg tablet TAKE 1 TABLET BY MOUTH TWICE A DAY [facility] hydroxyzine HCl 25 mg tablet TAKE 1 TABLET BY MOUTH EVERY 8 HOURS NEEDED FOR ANXIETY hydroxyzine HCl 25 mg tablet TAKE 1 TABLET BY MOUTH EVERY 8 HOURS NEEDED FOR ANXIETY No hydroxyzin e HCl 25 mg tablet TAKE 1 TABLET BY MOUTH EVERY 8 HOURS NEEDED FOR ANXIETY [facility] ibuprofen 600 mg tablet TAKE 1 TABLET BY MOUTH THREE TIMES A DAY WITH FOOD OR MILK NEEDED ibuprofen 600 mg tablet TAKE 1 TABLET BY MOUTH THREE TIMES A DAY WITH FOOD OR MILK NEEDED No ibuprofen 600 mg tablet TAKE 1 TABLET BY MOUTH THREE TIMES A DAY WITH FOOD OR MILK NEEDED [facility] metoprolol tartrate 25 mg tablet TAKE 1 TABLET BY MOUTH TWICE A DAY WITH FOOD ORALLY TWICE A DAY metoprolol tartrate 25 mg tablet TAKE 1 TABLET BY MOUTH TWICE A DAY WITH FOOD ORALLY TWICE A DAY No metoprolol tartrate 25 mg tablet TAKE 1 TABLET BY MOUTH TWICE A DAY WITH FOOD ORALLY TWICE A DAY [facility] quetiapine 50 mg tablet TAKE ONE TABLET BY MOUTH AT BEDTIME FOR 90 DAYS quetiapine 50 mg tablet TAKE ONE TABLET BY MOUTH AT BEDTIME FOR 90 DAYS No quetiapine 50 mg tablet TAKE ONE TABLET BY MOUTH AT BEDTIME FOR 90 DAYS [facility] ropinirole 1 mg tablet TAKE 1 TABLET BY MOUTH ONCE A DAY 1 TO 3 HOURS BEFORE BEDTIME FOR 90 DAYS ropinirole 1 mg tablet TAKE 1 TABLET BY MOUTH ONCE A DAY 1 TO 3 HOURS BEFORE BEDTIME FOR 90 DAYS No ropinirole 1 mg tablet TAKE 1 TABLET BY MOUTH ONCE A DAY 1 TO 3 HOURS BEFORE BEDTIME FOR 90 DAYS [facility] trazodone 50 mg tablet TAKE 1 TABLET BY MOUTH EVERY DAY AT BEDTIME NEEDED trazodone 50 mg tablet TAKE 1 TABLET BY MOUTH EVERY DAY AT BEDTIME NEEDED No trazodone 50 mg tablet TAKE 1 TABLET BY MOUTH EVERY DAY AT BEDTIME NEEDED [facility] acetaminoph en 300 mg-codeine 30 mg tablet TAKE 1 TABLET BY MOUTH EVERY 8 HOURS acetaminoph en 300 mg-codeine 30 mg tablet TAKE 1 TABLET BY MOUTH EVERY 8 HOURS No acetaminop hen 300 mg-codeine 30 mg tablet TAKE 1 TABLET BY MOUTH EVERY 8 HOURS [facility] alprazolam 0.25 mg tablet TAKE 1 TABLET BY MOUTH TWICE A DAY alprazolam 0.25 mg tablet TAKE 1 TABLET BY MOUTH TWICE A DAY No alprazolam 0.25 mg tablet TAKE 1 TABLET BY MOUTH TWICE A DAY [facility] alprazolam 0.5 mg tablet TAKE 1 TABLET BY MOUTH TWICE A DAY alprazolam 0.5 mg tablet TAKE 1 TABLET BY MOUTH TWICE A DAY No alprazolam 0.5 mg tablet TAKE 1 TABLET BY MOUTH TWICE A DAY [facility] baclofen 20 mg tablet TAKE 1 TABLET BY MOUTH WITH FOOD OR MILK EVERY 8 HRS NEEDED baclofen 20 mg tablet TAKE 1 TABLET BY MOUTH WITH FOOD OR MILK EVERY 8 HRS NEEDED No baclofen 20 mg tablet TAKE 1 TABLET BY MOUTH WITH FOOD OR MILK EVERY 8 HRS NEEDED [facility] buspirone 5 mg tablet TAKE 1 TABLET BY MOUTH TWICE A DAY buspirone 5 mg tablet TAKE 1 TABLET BY MOUTH TWICE A DAY No buspirone 5 mg tablet TAKE 1 TABLET BY MOUTH TWICE A DAY [facility] cephalexin 500 mg capsule TAKE 1 CAPSULE BY MOUTH EVERY 6 HOURS FOR 10 DAYS FOR INFECTIOUS PROCEESS cephalexin 500 mg capsule TAKE 1 CAPSULE BY MOUTH EVERY 6 HOURS FOR 10 DAYS FOR INFECTIOUS PROCEESS No cephalexin 500 mg capsule TAKE 1 CAPSULE BY MOUTH EVERY 6 HOURS FOR 10 DAYS FOR INFECTIOUS PROCEESS [facility] clonazepam 0.5 mg tablet TAKE 1 TABLET BY MOUTH TWICE A DAY NEEDED FOR ANXIETY clonazepam 0.5 mg tablet TAKE 1 TABLET BY MOUTH TWICE A DAY NEEDED FOR ANXIETY No clonazepam 0.5 mg tablet TAKE 1 TABLET BY MOUTH TWICE A DAY NEEDED FOR ANXIETY [facility] cyclobenzap rine 5 mg tablet TAKE 1 TABLET BY MOUTH THREE TIMES DAILY NEEDED MUSCLE SPASMS cyclobenzap rine 5 mg tablet TAKE 1 TABLET BY MOUTH THREE TIMES DAILY NEEDED MUSCLE SPASMS No cyclobenza harleen 5 mg tablet TAKE 1 TABLET BY MOUTH THREE TIMES DAILY NEEDED MUSCLE SPASMS [facility] Eliquis 5 mg tablet TAKE 1 TABLET BY MOUTH TWICE A DAY Eliquis 5 mg tablet TAKE 1 TABLET BY MOUTH TWICE A DAY No Eliquis 5 mg tablet TAKE 1 TABLET BY MOUTH TWICE A DAY [facility] hydrocodone 10 mg-acetamin ophen 325 mg tablet TAKE 1 TABLET BY MOUTH TWICE A DAY NEEDED hydrocodone 10 mg-acetamin ophen 325 mg tablet TAKE 1 TABLET BY MOUTH TWICE A DAY NEEDED No hydrocodon e 10 mg-acetami nophen 325 mg tablet TAKE 1 TABLET BY MOUTH TWICE A DAY NEEDED [facility] hydrocodone 5 mg-acetamin ophen 325 mg tablet TAKE 1 TABLET BY MOUTH TWICE DAILY FOR 28 DAYS hydrocodone 5 mg-acetamin ophen 325 mg tablet TAKE 1 TABLET BY MOUTH TWICE DAILY FOR 28 DAYS No hydrocodon e 5 mg-acetami nophen 325 mg tablet TAKE 1 TABLET BY MOUTH TWICE DAILY FOR 28 DAYS [facility] hydrocodone 7.5 mg-acetamin ophen 325 mg tablet TAKE 1 TABLET BY MOUTH TWICE A DAY hydrocodone 7.5 mg-acetamin ophen 325 mg tablet TAKE 1 TABLET BY MOUTH TWICE A DAY No hydrocodon e 7.5 mg-acetami nophen 325 mg tablet TAKE 1 TABLET BY MOUTH TWICE A DAY [facility] hydroxyzine HCl 25 mg tablet TAKE 1 TABLET BY MOUTH EVERY 8 HOURS NEEDED FOR ANXIETY hydroxyzine HCl 25 mg tablet TAKE 1 TABLET BY MOUTH EVERY 8 HOURS NEEDED FOR ANXIETY No hydroxyzin e HCl 25 mg tablet TAKE 1 TABLET BY MOUTH EVERY 8 HOURS NEEDED FOR ANXIETY [facility] ibuprofen 600 mg tablet TAKE 1 TABLET BY MOUTH THREE TIMES A DAY WITH FOOD OR MILK NEEDED ibuprofen 600 mg tablet TAKE 1 TABLET BY MOUTH THREE TIMES A DAY WITH FOOD OR MILK NEEDED No ibuprofen 600 mg tablet TAKE 1 TABLET BY MOUTH THREE TIMES A DAY WITH FOOD OR MILK NEEDED [facility] metoprolol tartrate 25 mg tablet TAKE 1 TABLET BY MOUTH TWICE A DAY WITH FOOD ORALLY TWICE A DAY metoprolol tartrate 25 mg tablet TAKE 1 TABLET BY MOUTH TWICE A DAY WITH FOOD ORALLY TWICE A DAY No metoprolol tartrate 25 mg tablet TAKE 1 TABLET BY MOUTH TWICE A DAY WITH FOOD ORALLY TWICE A DAY [facility] quetiapine 50 mg tablet TAKE ONE TABLET BY MOUTH AT BEDTIME FOR 90 DAYS quetiapine 50 mg tablet TAKE ONE TABLET BY MOUTH AT BEDTIME FOR 90 DAYS No quetiapine 50 mg tablet TAKE ONE TABLET BY MOUTH AT BEDTIME FOR 90 DAYS [facility] ropinirole 1 mg tablet TAKE 1 TABLET BY MOUTH ONCE A DAY 1 TO 3 HOURS BEFORE BEDTIME FOR 90 DAYS ropinirole 1 mg tablet TAKE 1 TABLET BY MOUTH ONCE A DAY 1 TO 3 HOURS BEFORE BEDTIME FOR 90 DAYS No ropinirole 1 mg tablet TAKE 1 TABLET BY MOUTH ONCE A DAY 1 TO 3 HOURS BEFORE BEDTIME FOR 90 DAYS [facility] trazodone 50 mg tablet TAKE 1 TABLET BY MOUTH EVERY DAY AT BEDTIME NEEDED trazodone 50 mg tablet TAKE 1 TABLET BY MOUTH EVERY DAY AT BEDTIME NEEDED No trazodone 50 mg tablet TAKE 1 TABLET BY MOUTH EVERY DAY AT BEDTIME NEEDED [facility] Ibuprofen 600 MG Ibuprofen 600 MG 11-16 00:00 :00 No TID Ibuprofen 600 MG Immunizations Ordered Immunization Name Filled Immunization Name Date Status Comments Source Flucelvax - single dose syringe Flucelvax - single dose syringe 2022-05-22 10:57:00 Completed [facility] COVID-19 Vaccine (Meme) COVID-19 Vaccine (Meme) 2021-02-13 14:33:00 Completed [facility] COVID-19 Vaccine (Meme) COVID-19 Vaccine (Meme) 2021-02-13 14:33:00 Completed [facility] COVID-19 Vaccine (Meme) COVID-19 Vaccine (Meme) 2021-02-13 14:33:00 Completed [facility] COVID-19 Vaccine (Meme) COVID-19 Vaccine (Meme) 2021-02-13 14:33:00 Completed [facility] COVID-19 Vaccine (Meme) COVID-19 Vaccine (Meme) 2021-02-13 14:33:00 Completed [facility] COVID-19 Vaccine (Meme) COVID-19 Vaccine (Meme) 2021-02-13 14:33:00 Completed [facility] COVID-19 Vaccine (Meme) COVID-19 Vaccine (Meme) 2021-02-13 14:33:00 Completed [facility] COVID-19 Vaccine (Meme) COVID-19 Vaccine (Meme) 2021-02-13 14:33:00 Completed [facility] COVID-19 Vaccine (Meme) COVID-19 Vaccine (Meme) 2021-02-13 14:33:00 Completed [facility] COVID-19 Vaccine (Meme) COVID-19 Vaccine (Meme) 2021-02-13 14:33:00 Completed [facility] COVID-19 Vaccine (Meme) COVID-19 Vaccine (Meme) 2021-02-13 14:33:00 Completed [facility] COVID-19 Vaccine (Meme) COVID-19 Vaccine (Meme) Unknown Completed [facility] Flucelvax - single dose syringe Flucelvax - single dose syringe Unknown Completed [facility] COVID-19 Vaccine (Meme) COVID-19 Vaccine (Meme) Unknown Completed [facility] Flucelvax - single dose syringe Flucelvax - single dose syringe Unknown Completed [facility] COVID-19 Vaccine (Meme) COVID-19 Vaccine (Meme) Unknown Completed [facility] Flucelvax - single dose syringe Flucelvax - single dose syringe Unknown Completed [facility] COVID-19 Vaccine (Meme) COVID-19 Vaccine (Meme) Unknown Completed [facility] Flucelvax (ccIIV4) - SDS - 0.5mL Flucelvax (ccIIV4) - SDS - 0.5mL Unknown Completed [facility] COVID-19 Vaccine (Meme) COVID-19 Vaccine (Meme) Unknown Completed [facility] Flucelvax (ccIIV4) - SDS - 0.5mL Flucelvax (ccIIV4) - SDS - 0.5mL Unknown Completed [facility] COVID-19 Vaccine (Meme) COVID-19 Vaccine (Meme) Unknown Completed [facility] Flucelvax (ccIIV4) - SDS - 0.5mL Flucelvax (ccIIV4) - SDS - 0.5mL Unknown Completed [facility] COVID-19 Vaccine (Meme) COVID-19 Vaccine (Meme) Unknown Completed [facility] Flucelvax (ccIIV4) - SDS - 0.5mL Flucelvax (ccIIV4) - SDS - 0.5mL Unknown Completed [facility] COVID-19 Vaccine (Meme) COVID-19 Vaccine (Meme) Unknown Completed [facility] Flucelvax (ccIIV4) - SDS - 0.5mL Flucelvax (ccIIV4) - SDS - 0.5mL Unknown Completed [facility] COVID-19 Vaccine (Meme) COVID-19 Vaccine (Meme) Unknown Completed [facility] Flucelvax (ccIIV4) - SDS - 0.5mL Flucelvax (ccIIV4) - SDS - 0.5mL Unknown Completed [facility] Vital Signs Vital Name Observation Time Observation Value Comments S ource height 2023-12-23 08:20:00 72 [in_i] [facility] weight 2023-12-23 08:20:00 210.6 [lb_av] [facility] temperature 2023-12-23 08:20:00 98.0 [degF] Com [facility] bmi 2023-12-23 08:20:00 28.56 kg/m2 [facility] oximetry 2023-12-23 08:20:00 95 % [facility] respiratory rate 2023-12-23 08:20:00 18 /min [facility] blood pressure systolic 2023-12-23 08:20:00 120 mm[Hg] [facility] blood pressure diastolic 2023-12-23 08:20:00 83 mm[Hg] [facility] height 2023-08-27 14:20:00 72 [in_i] [facility] weight 2023-08-27 14:20:00 204.2 [lb_av] [facility] temperature 2023-08-27 14:20:00 97.2 [degF] Com [facility] bmi 2023-08-27 14:20:00 27.69 kg/m2 [facility] oximetry 2023-08-27 14:20:00 95 % [facility] respiratory rate 2023-08-27 14:20:00 15 /min [facility] blood pressure systolic 2023-08-27 14:20:00 113 mm[Hg] [facility] blood pressure diastolic 2023-08-27 14:20:00 72 mm[Hg] [facility] height 2023-05-28 10:00:00 72 [in_i] [facility] weight 2023-05-28 10:00:00 203.2 [lb_av] Co [facility] temperature 2023-05-28 10:00:00 97.2 [degF] Com [facility] bmi 2023-05-28 10:00:00 27.56 kg/m2 [facility] oximetry 2023-05-28 10:00:00 98 % [facility] respiratory rate 2023-05-28 10:00:00 15 /min [facility] blood pressure systolic 2023-05-28 10:00:00 106 mm[Hg] Common [facility] blood pressure diastolic 2023-05-28 10:00:00 85 mm[Hg] [facility] height 2023-02-20 10:40:00 72 [in_i] [facility] weight 2023-02-20 10:40:00 201.0 [lb_av] [facility] temperature 2023-02-20 10:40:00 98.8 [degF] Com [facility] bmi 2023-02-20 10:40:00 27.26 kg/m2 [facility] oximetry 2023-02-20 10:40:00 95 % [facility] respiratory rate 2023-02-20 10:40:00 16 /min [facility] blood pressure systolic 2023-02-20 10:40:00 134 mm[Hg] Common [facility] blood pressure diastolic 2023-02-20 10:40:00 89 mm[Hg] Common [facility] height 2022-11-20 11:40:00 72 [in_i] [facility] weight 2022-11-20 11:40:00 204.6 [lb_av] [facility] temperature 2022-11-20 11:40:00 97.3 [degF] Com [facility] bmi 2022-11-20 11:40:00 27.75 kg/m2 [facility] oximetry 2022-11-20 11:40:00 96 % [facility] respiratory rate 2022-11-20 11:40:00 16 /min [facility] blood pressure systolic 2022-11-20 11:40:00 133 mm[Hg] [facility] blood pressure diastolic 2022-11-20 11:40:00 95 mm[Hg] [facility] height 2022-08-20 14:00:00 72 [in_i] [facility] weight 2022-08-20 14:00:00 201.8 [lb_av] [facility] temperature 2022-08-20 14:00:00 98.2 [degF] Com [facility] bmi 2022-08-20 14:00:00 27.37 kg/m2 [facility] oximetry 2022-08-20 14:00:00 96 % [facility] respiratory rate 2022-08-20 14:00:00 16 /min [facility] blood pressure systolic 2022-08-20 14:00:00 130 mm[Hg] [facility] blood pressure diastolic 2022-08-20 14:00:00 84 mm[Hg] [facility] height 2022-05-22 10:40:00 72 [in_i] [facility] weight 2022-05-22 10:40:00 198.6 [lb_av] [facility] temperature 2022-05-22 10:40:00 97.0 [degF] Com [facility] bmi 2022-05-22 10:40:00 26.93 kg/m2 [facility] oximetry 2022-05-22 10:40:00 97 % [facility] respiratory rate 2022-05-22 10:40:00 17 /min [facility] blood pressure systolic 2022-05-22 10:40:00 126 mm[Hg] [facility] blood pressure diastolic 2022-05-22 10:40:00 86 mm[Hg] [facility] height 2022-02-20 10:40:00 72 [in_i] [facility] weight 2022-02-20 10:40:00 192 [lb_av] [facility] temperature 2022-02-20 10:40:00 97.4 [degF] Com [facility] bmi 2022-02-20 10:40:00 26.04 kg/m2 [facility] oximetry 2022-02-20 10:40:00 96 % [facility] respiratory rate 2022-02-20 10:40:00 19 /min [facility] blood pressure systolic 2022-02-20 10:40:00 113 mm[Hg] [facility] blood pressure diastolic 2022-02-20 10:40:00 62 mm[Hg] [facility] height 2022-01-23 14:30:00 72 [in_i] [facility] weight 2022-01-23 14:30:00 189.3 [lb_av] [facility] temperature 2022-01-23 14:30:00 97.9 [degF] Com [facility] bmi 2022-01-23 14:30:00 25.67 kg/m2 [facility] blood pressure systolic 2022-01-23 14:30:00 128 mm[Hg] [facility] blood pressure diastolic 2022-01-23 14:30:00 74 mm[Hg] [facility] height 2021-11-21 11:40:00 72 [in_i] [facility] weight 2021-11-21 11:40:00 195 [lb_av] [facility] temperature 2021-11-21 11:40:00 98.3 [degF] Com [facility] bmi 2021-11-21 11:40:00 26.44 kg/m2 [facility] oximetry 2021-11-21 11:40:00 97 % [facility] respiratory rate 2021-11-21 11:40:00 16 /min [facility] blood pressure systolic 2021-11-21 11:40:00 104 mm[Hg] [facility] blood pressure diastolic 2021-11-21 11:40:00 54 mm[Hg] [facility] BP Diastolic 2021-09-17 00:00:00 69 mm[Hg] [facility] Height 2021-09-17 00:00:00 72 [in_i] [facility] BMI (Body Mass Index) 2021-09-17 00:00:00 27.1 kg/m2 [facility] BP Systolic 2021-09-17 00:00:00 130 mm[Hg] [facility] Body Weight 2021-09-17 00:00:00 3200 [oz_av] [facility] BP Diastolic 2021-09-12 00:00:00 75 mm[Hg] [facility] Height 2021-09-12 00:00:00 72 [in_i] [facility] BMI (Body Mass Index) 2021-09-12 00:00:00 27.1 kg/m2 [facility] BP Systolic 2021-09-12 00:00:00 141 mm[Hg] [facility] Body Weight 2021-09-12 00:00:00 3200 [oz_av] [facility] height 2021-09-06 13:20:00 72 [in_i] [facility] weight 2021-09-06 13:20:00 196.2 [lb_av] [facility] temperature 2021-09-06 13:20:00 98.7 [degF] Com [facility] bmi 2021-09-06 13:20:00 26.61 kg/m2 [facility] oximetry 2021-09-06 13:20:00 97 % [facility] respiratory rate 2021-09-06 13:20:00 16 /min [facility] height 2021-08-21 11:00:00 72 [in_i] [facility] weight 2021-08-21 11:00:00 195 [lb_av] [facility] temperature 2021-08-21 11:00:00 97.9 [degF] Com [facility] bmi 2021-08-21 11:00:00 26.44 kg/m2 [facility] oximetry 2021-08-21 11:00:00 99 % [facility] respiratory rate 2021-08-21 11:00:00 16 /min [facility] blood pressure systolic 2021-08-21 11:00:00 138 mm[Hg] [facility] blood pressure diastolic 2021-08-21 11:00:00 71 mm[Hg] [facility] height 2021-05-20 10:40:00 72 [in_i] [facility] weight 2021-05-20 10:40:00 199 [lb_av] [facility] temperature 2021-05-20 10:40:00 97.8 [degF] Com [facility] bmi 2021-05-20 10:40:00 26.99 kg/m2 [facility] oximetry 2021-05-20 10:40:00 97 % [facility] respiratory rate 2021-05-20 10:40:00 16 /min [facility] blood pressure systolic 2021-05-20 10:40:00 136 mm[Hg] [facility] blood pressure diastolic 2021-05-20 10:40:00 72 mm[Hg] [facility] Encounters Start Date/Time End Date/Time Encounter Type Admission Type Attending [facility] Facility Care Department Encounter ID Source 2023-12-21 09:54:00 Outpatient Lucie Becerra STLML[facility] [id number] [facility] 2022-05-22 07:15:00 Outpatient Lucie Becerra [facility]C [facility] [id number] [facility] 2022-02-18 13:42:01 Outpatient Lucie Becerra STDOVLC ST[facility] [id number] [facility] 2021-11-21 16:06:01 Outpatient Lucie Becerra STDOVLC STL[facility] [id number] [facility] 2021-11-11 10:25:02 Outpatient Lucie Becerra STLMLC ST[facility] [id number] [facility] 2021-09-09 11:52:01 Outpatient Lucie Becerra STLMLC ST[facility] [id number] [facility] 2021-09-04 09:26:02 Outpatient Lucie Becerra STLMLC ST[facility] [id number] [facility] 2021-08-16 14:50:01 Outpatient Lucie Becerra STDOVLC STL[facility]C [id number] [facility] 2021-07-17 13:43:09 Outpatient Lucie Becerra STLMLC ST[facility] [id number] [facility] 2021-07-17 12:54:53 Outpatient [place] vel[place] STLMLC STL[facility]C [id number] [facility] 2021-07-17 12:42:31 Outpatient Lucie Becerra STLMLC STL[facility]C [id number] [facility] 2021-07-17 12:36:42 Outpatient [place] veliz STLMLC STLMLC [id number] [facility] 2023-12-23 00:00:00 2023-12-23 00:00:00 OFFICE VISIT ESTAB PT LEVEL 3 [facility] ST[facility] [id number] [facility] 2023-12-02 00:00:00 2023-12-02 00:00:00 (TEL) [facility]C STL[facility]C [id number] [facility] 2023-09-08 00:00:00 2023-09-08 00:00:00 (TEL) [facility]LMLC ST[facility]C [id number] [facility] 2023-08-27 00:00:00 2023-08-27 00:00:00 OFFICE VISIT ESTAB PT LEVEL 3 [facility] STL[facility]C [id number] [facility] 2023-08-06 00:00:00 2023-08-06 00:00:00 (TEL) STLMLC ST[facility]C [id number] [facility] 2023-05-28 00:00:00 2023-05-28 00:00:00 OFFICE VISIT ESTAB PT LEVEL 3 [facility] ST[facility]C [id number] [facility] 2023-02-20 00:00:00 2023-02-20 00:00:00 OFFICE VISIT ESTAB PT LEVEL 4 [facility] STL[facility]C [id number] [facility] 2022-12-15 00:00:00 2022-12-15 00:00:00 (TEL) [facility]LMLC ST[facility]C [id number] [facility] 2022-11-20 00:00:00 2022-11-20 00:00:00 OFFICE VISIT ESTAB PT LEVEL 4 [facility] STL[facility]C [id number] [facility] 2022-08-20 00:00:00 2022-08-20 00:00:00 OFFICE VISIT ESTAB PT LEVEL 4 [facility] STL[facility]C [id number] [facility] 2022-05-22 00:00:00 2022-05-22 00:00:00 OFFICE VISIT EST PT LEVEL 3 [facility] ST[facility]C [id number] [facility] 2022-02-20 00:00:00 2022-02-20 00:00:00 OFFICE VISIT EST PT LEVEL 3 [facility] STL[facility]C [id number] [facility] 2022-01-23 00:00:00 2022-01-23 00:00:00 OFFICE VISIT NEW PT LEVEL 4 [facility] STL[facility]C [id number] [facility] 2022-01-15 00:00:00 2022-01-15 00:00:00 Outpatient DEBBIE BALDWIN [facility] [id number] [facility] 2021-11-21 00:00:00 2021-11-21 00:00:00 OFFICE VISIT ESTAB PT LEVEL 4 [facility] STL[facility]C [id number] [facility] 2021-11-07 00:00:00 2021-11-07 00:00:00 (TEL) STLMLC ST[facility]C [id number] [facility] 2021-11-05 00:00:00 2021-11-05 00:00:00 (TEL) STLMLC STL[facility]C [id number] [facility] 2021-09-26 05:38:00 2021-09-26 05:38:00 Outpatient KOVACEV_T [facility] [id number] 2021-09-24 09:08:00 2021-09-24 09:08:00 Outpatient KOVACEV_T [facility] [id number] [facility] 2021-09-17 09:33:00 2021-09-17 09:33:00 Outpatient KOVACEV_T [facility] [id number] [facility] 2021-09-17 00:00:00 2021-09-17 00:00:00 Outpatient Lance Varela [facility] [id number] 2021-09-17 00:00:00 2021-09-17 00:00:00 Lance Varela MD: [place] [address] , Ph. [facility] [id number] [facility] 2021-09-12 12:58:00 2021-09-12 12:58:00 Outpatient LUBA_T [facility] [id number] [facility] 2021-09-12 00:00:00 2021-09-12 00:00:00 Lance Varela MD: [address] [place] [address] , Ph. [facility] [id number] [facility] 2021-09-12 00:00:00 2021-09-12 00:00:00 Outpatient Lance Varela [facility] [id number] 2021-09-06 00:00:00 2021-09-06 00:00:00 OFFICE VISIT EST PT LEVEL 3 [facility]C ST[facility]C [id number] [facility] 2021-08-21 00:00:00 2021-08-21 00:00:00 OFFICE VISIT ESTAB PT LEVEL 4 [facility]C ST[facility]C [id number] [facility] 2021-05-21 00:00:00 2021-05-21 00:00:00 OFFICE VISIT ESTAB PT LEVEL 1 [facility] STL[facility]C [id number] [facility] 2021-05-20 00:00:00 2021-05-20 00:00:00 OFFICE VISIT ESTAB PT LEVEL 4 [facility]C STL[facility]C [id number] [facility] 2021-05-20 00:00:00 2021-05-20 00:00:00 (TEL) STLMLC STL[facility]C [id number] [facility] 2021-02-13 00:00:00 2021-02-13 00:00:00 Outpatient STLMLC [facility] [id number] [facility] 2020-12-20 00:00:00 2020-12-20 00:00:00 Outpatient STLMLC [facility]C [id number] [facility] 2020-10-25 00:00:00 2020-10-25 00:00:00 Outpatient STLMLC [facility] [id number] [facility] 2020-10-24 00:00:00 2020-10-24 00:00:00 Outpatient STLMLC [facility] [id number] [facility] 2020-10-10 00:00:00 2020-10-10 00:00:00 Outpatient STLMLC [facility]C [id number] [facility] 2020-10-09 00:00:00 2020-10-09 00:00:00 Outpatient STLMLC [facility] [id number] [facility] 2020-09-10 04:49:00 2020-09-10 04:49:00 Outpatient LUBA_T [facility] [id number] [facility] 2020-09-03 00:00:00 2020-09-03 00:00:00 Outpatient STLMLC ST[facility]C [id number] [facility] 2020-08-24 00:00:00 2020-08-24 00:00:00 Outpatient STLMLC [facility] [id number] [facility]
[2024-02-16] MEDS ORDERED: METOPROLOL TARTRATE 5 MG/5 ML INJ IV ONE (14:26)
[2024-02-16] MEDS ORDERED: NA CHLORIDE 0.9% 500 ML ONE (14:26)
[2024-02-16 14:44] LABS: Absolute Eosinophils 0.1 K/uL (0-0.5); Absolute Lymphocytes (CBC) 1.5 K/uL (0.7-4.9); Absolute Monocytes 0.4 K/uL (0.1-1.3); Absolute Neutrophil 2.6 K/uL (1.8-8.0); Basophils % 0.4 % (0-1.3); Eosinophils % 3.1 % (0-4.4); Hematocrit 37.9 % (39.6-49.0); Hemoglobin 13.1 g/dL (13.6-17.9); Lymphocytes % 32.4 % (15.3-44.8); MCH 36.2 pg (27.0-35.0); MCHC 34.5 g/dL (32.0-36.0); MCV 105.2 fL (80-100); MPV 8.4 fL (7.6-11.3); Monocytes % 8.9 % (3.3-12.3); Neutrophils % 55.2 % (41.7-73.7); Nucleated Red Blood Cells % 0.2 % (0-0); Platelets 104 thou/uL (152-406); Red Cell Distribution Width 15.1 % (12.1-15.2)
[2024-02-16 14:51] LABS: PT Prothrombin Time 19.6 SECONDS (9.4-12.5); PTT, Activated Partial Thromb 31.9 SECONDS (24.3-36.9); Protime INR 1.78
[2024-02-16 15:08] LABS: Albumin 2.9 g/dL (3.4-5.0); Albumin/Globulin Ratio 0.7 (1.1-1.8); Anion Gap 6.7 mEq/L (5.0-15.0); Bilirubin Total 6.4 mg/dL (0.2-1.0); Potassium 3.7 mEq/L (3.5-5.1); Protein, Total 6.9 g/dL (6.4-8.2)
[2024-02-16 15:33] LABS: Blood Morphology Comment NOT SEEN (NOT SEEN); Platelet Estimate DECR; White Blood Cell Scan OK (OK)
--- NOTE | 2024-02-16 15:49 | RAD REPORT ---
EXAM DESCRIPTION: USExtrem Venous W Compress Bil02/16/2024 3:37 pm CLINICAL HISTORY: Leg pain COMPARISON: none FINDINGS: The common femoral, superficial femoral, greater saphenous, popliteal and posterior tibial veins bilaterally are compressible and demonstrate augmentation. Doppler demonstrates good flow. Grayscale, color and spectral analysis performed on all vessels IMPRESSION: No evidence of deep venous thrombosis involving either lower extremity.
--- NOTE | 2024-02-16 16:14 | RAD REPORT ---
EXAM DESCRIPTION: Trudy Single View02/16/2024 3:54 pm CLINICAL HISTORY: Leg swelling COMPARISON: 2021 FINDINGS: [id number] bilateral pulmonary opacities Heart is markedly enlarged IMPRESSION: CHF
--- NOTE | 2024-02-16 16:15 | RAD REPORT ---
EXAM DESCRIPTION: RAD - Femur Left - 02/16/2024 3:54 pm CLINICAL HISTORY: Left leg pain FINDINGS: No fracture is seen. No bony lesion noted. Edema is present within subcutaneous tissues
--- NOTE | 2024-02-16 16:16 | RAD REPORT ---
EXAM DESCRIPTION: RADTib Fib Left02/16/2024 3:54 pm CLINICAL HISTORY: Left leg pain FINDINGS: No fracture is seen. No bony lesion noted. Edema is present within subcutaneous tissues Chondrocalcinosis involves knee. Calcification probably benign lies between the mid tibia and fibula. Follow-up x-ray in 3 months ariana mmended to assess stability
--- NOTE | 2024-02-16 16:17 | RAD REPORT ---
EXAM DESCRIPTION: RAD - Foot Left 3 View - 02/16/2024 3:54 pm CLINICAL HISTORY: Left Foot pain FINDINGS: No fracture or dislocation is seen. Mild hallux valgus deformity. Mild lateral subluxation first proximal phalanx. Small calcaneal spur
--- NOTE | 2024-02-16 16:29 | EDPHYS ---
Physician Documentation [facility] Name: Joe Ricks Age: 63 yrs Sex: Male : 1960 Arrival Date: 02/16/2024 Time: 14:00 Bed 17 Private MD: ED Physician Jose Martini HPI: 02/15 16:25 This 63 yrs old Male presents to ER via Wheelchair with complaints of Leg Injury - psbl kb infection. 16:25 Pt is a 63 year old male who presents for left leg pain, bruising, redness and swelling kb that started after a fall one week ago. Reports warmth to leg, denies fever, chills. States he was trying to wait out the pain, but it isn't improving. . Historical: - Allergies: 14:21 No Known Allergies; kc6 - PMHx: 14:21 Anxiety; Broken Neck; palpitations; restless leg syndrome; right hear loss; Atrial kc6 fibrillation; - PSHx: 14:21 3 plates in skull; cardioversion; kc6 - Immunization history:: Adult Immunizations up to date. - Infectious Disease History:: Denies. - Social history:: Smoking status: Patient reports the use of cigarette tobacco products, denies chronic smoking, but will smoke occasionally. ROS: 14:23 Constitutional: As per HPI kb Exam: 14:24 Constitutional: This is a well developed, well nourished patient who is awake, alert, kb and in no acute distress. Head/Face: Normocephalic, atraumatic. ENT: Moist Mucous membranes Respiratory: Respirations even and unlabored. No increased work of breathing. Talking in full sentences Abdomen/GI: Soft, non-tender. No distention Skin: Warm, dry with normal turgor. Normal color. Neuro: Awake and alert, GCS 15, oriented to person, place, time, and situation. Moves all extremities. Normal gait. 14:24 Cardiovascular: Rate: tachycardic, Rhythm: irregularly irregular, Edema: 2+ bilateral lower extremities, 14:24 ECG was reviewed by the Attending Physician. 14:43 Skin: Appearance: normal except for affected area, Color: erythematous, left lower leg kb and foot, ecchymosis, noted on the, lateral aspect of left knee and dorsum of left foot, that are mild, that are moderate, swelling, noted on the right leg and left leg, Vital Signs: 14:20 BP 112 / 91; Pulse 150; Resp 19 S; Temp 98.2(O); Pulse Ox 99% on R/A; Weight 92.99 kg kc6 (R); Height 6 ft. 0 in. (R); 14:34 BP 114 / 83; Pulse 147; Resp 18; Pulse Ox 100% on R/A; mb9 14:42 BP 116 / 76; Pulse 117; Resp 18; Pulse Ox 100% on R/A; mb9 16:30 BP 101 / 76; Pulse 118; Resp 18; Pulse Ox 96% on R/A; ld1 17:35 BP 106 / 79; Pulse 118; Resp 23; Pulse Ox 97% ; ld1 18:00 BP 111 / 89; Pulse 117; Resp 16; Pulse Ox 99% ; ld1 18:31 BP 104 / 83; Pulse 119; Resp 15; Pulse Ox 98% ; ld1 14:20 Body Mass Index 27.80 (92.99 kg, 182.88 cm) kc6 MDM: 14:06 Patient medically screened. kb 14:23 Data reviewed: vital signs, nurses notes. kb 16:24 Differential diagnosis: closed fracture, contusion, DVT, cellulitis, pulmonary edema, kb CHF. Consideration of Admission/Observation Patient was admitted/placed on observation. Escalation of care including admission/observation considered. Management of patient was discussed with the following: Hospitalist: Hospitalist team, accepted for admission under Dr Mcknight.. Historians other than the Patient: Spouse/Significant Other: . Counseling: I had a detailed discussion with the patient and/or guardian regarding the historical points, exam findings, and any diagnostic results supporting the discharge/admit diagnosis, lab results, radiology results, the need for further work-up and treatment in the hospital. 17:13 External Records Reviewed: I called to obtain med list from the [facility] [place] [facility]. Ibuprofen 600 mg, gabapentin 300 mg, metoprolol 50 mg, Seroquel 50 mg, ropinirole 1 mg. 02/15 14:17 Order name: Blood Culture Adult (2) 02/15 14:17 Order name: CBC with Diff; Complete Time: 15:37 02/15 14:17 Order name: CMP; Complete Time: 15:10 02/15 14:17 Order name: Lactate w/ 2H reflex if indic.; Complete Time: 15:10 kb 02/15 14:17 Order name: Protime (+inr); Complete Time: 14:55 kb 02/15 14:17 Order name: Ptt, Activated; Complete Time: 14:55 kb 02/15 14:17 Order name: BNP; Complete Time: 15:10 kb 02/15 14:17 Order name: Troponin High Sensitivity; Complete Time: 15:10 kb 02/15 14:48 Order name: CBC Smear Scan; Complete Time: 15:37 EDMS 02/15 14:17 Order name: Chest Single View XRAY; Complete Time: 16:15 kb 02/15 14:17 Order name: US Extremity Venous W Compression Boris; Complete Time: 15:50 kb 02/15 14:30 Order name: Femur Left XRAY; Complete Time: 16:15 kb 02/15 14:30 Order name: Tib Fib Left XRAY; Complete Time: 16:17 kb 02/15 14:30 Order name: Foot Left 3 View XRAY; Complete Time: 16:17 kb 02/15 14:17 Order name: Accucheck; Complete Time: 14:42 kb 02/15 14:17 Order name: Cardiac monitoring; Complete Time: 14:42 kb 02/15 14:17 Order name: EKG - Nurse/Tech; Complete Time: 14:42 kb 02/15 14:17 Order name: IV Saline Lock - Large Bore; Complete Time: 14:42 kb 02/15 14:17 Order name: Labs collected and sent; Complete Time: 14:42 kb 02/15 14:17 Order name: O2 Per Protocol; Complete Time: 14:42 kb 02/15 14:17 Order name: O2 Sat Monitoring; Complete Time: 14:42 kb 02/15 14:17 Order name: Vital Signs; Complete Time: 14:42 kb EC:24 Rate is 143 beats/min. Rhythm is irregularly irregular. QRS [place] is Normal. QRS kb interval is normal at 102 msec. QT interval is normal at 466 msec. Administered Medications: 14:34 Drug: Metoprolol IVP 5 mg IVP every 5 minutes; Hold for SBP < 100 or HR < 60. x3 Route: mb9 IVP; Site: right antecubital; 14:35 Drug: NS 0.9% IV 500 ml IV at bolus once Route: IV; Rate: bolus; Site: right mb9 antecubital; 16:00 Follow up: Response: No adverse reaction; IV Status: Completed infusion; IV Intake: ld1 500ml 14:42 Drug: Metoprolol IVP 5 mg IVP every 5 minutes; Hold for SBP < 100 or HR < 60. x3 Route: mb9 IVP; Site: right antecubital; 15:00 Drug: Metoprolol IVP 5 mg IVP every 5 minutes; Hold for SBP < 100 or HR < 60. x3 Route: ld1 IVP; Site: right antecubital; 15:25 Follow up: Response: No adverse reaction ld1 16:58 Drug: Metoprolol PO 50 mg PO once Route: PO; ld1 17:00 Follow up: Response: No adverse reaction ld1 16:59 Drug: fentaNYL (PF) IVP 25 mcg IVP once Route: IVP; Site: right antecubital; ld1 17:00 Follow up: Response: No adverse reaction ld1 16:59 Drug: Ondansetron IVP 4 mg IVP once; over 2 minutes Route: IVP; Site: right antecubital;ld1 17:00 Follow up: Response: No adverse reaction ld1 16:59 Drug: Furosemide IVP 20 mg IVP once; give over 2 minutes Route: IVP; Site: right ld1 antecubital; 17:00 Follow up: Response: No adverse reaction ld1 18:03 Drug: ceFAZolin IVPB 1 grams IVPB once Route: IVPB; Site: right antecubital; ld1 18:03 Drug: Furosemide IVP 40 mg IVP once; give over 2 minutes In addition to previous 20mg ld1 dose Route: IVP; Site: right antecubital; 18:24 Follow up: Response: No adverse reaction ld1 Disposition: 17:45 I was immediately available on-site in the Emergency Department for consultation in the mi3 care of the patient. Disposition Summary: 02/16/24 16:28 Hospitalization Ordered Notes: Hospitalization Status: Observation kb Provider: Aniceto Mcknight Location: Telemetry/MedSurg (observation) kb Condition: Stable kb Problem: new kb Symptoms: are unchanged kb Bed/Room Type: Standard Room Assignment: 414(08/27/24 18:58) iw Diagnosis - Unspecified combined systolic (congestive) and diastolic (congestive) heart failure kb - Unspecified atrial fibrillation kb - Cellulitis of left lower limb kb Forms: - Medication Reconciliation Form kb - SBAR form kb - Leadership Thank You Letter kb Signatures: Dispatcher [employer] EDMS Bryce Rodriguezistin, FLYER MAKER-C FLYER MAKER-Ckb Ursula jordan bd Isabela Sandhu, CHELSEA RN iw Terrance Resendez, FLYER MAKER-C FLYER MAKER-Cla1 Jose Martini, DO DO ms3 Abbey Martini RN RN ld1 Milady Acosta RN RN kc6 Tomás, Aidee Mohamud, RN RN mb9 Corrections: (The following items were deleted from the chart) 14:17 14:17 BLOOD CULTURE*+BA.LAB.BRZ ordered. EDMS EDMS 14:17 14:17 CBC+H.LAB.BRZ ordered. EDMS EDMS 14:17 14:17 COMPREHENSIVE METABOLIC PANEL+C.LAB.BRZ ordered. EDMS EDMS 14:17 14:17 LACTATE+C.LAB.BRZ ordered. EDMS EDMS 14:17 14:17 PROTIME (+INR)+COAG.LAB.BRZ ordered. EDMS EDMS 14:17 14:17 PTT, ACTIVATED+COAG.LAB.BRZ ordered. EDMS EDMS 14:17 14:17 PROBNP+C.LAB.BRZ ordered. EDMS EDMS 14:17 14:17 Troponin High Sensitivity+C.LAB.BRZ ordered. EDMS EDMS 14:17 14:17 Chest Single View+RAD.RAD.BRZ ordered. EDMS EDMS 14:17 14:17 Extrem Venous W Compression Boris+US.RAD.BRZ ordered. EDMS EDMS 17:24 16:28 kb bd 17:30 17:24 210 bd bd 18:58 17:30 413 bd iw
--- NOTE | 2024-02-16 16:29 | ER ---
Nurse's Notes [facility] Name: Joe Ricks Age: 63 yrs Sex: Male : 1960 Arrival Date: 02/16/2024 Time: 14:00 Bed 17 Private MD: Diagnosis: Unspecified combined systolic (congestive) and diastolic (congestive) heart failure;Unspecified atrial fibrillation;Cellulitis of left lower limb Presentation: 02/15 14:20 Chief complaint: Patient states: left LLE redness and swelling x1 week. reports recent kc6 injury while cutting down some trees. denies CP or SOB. Coronavirus screen: At this time, the client does not indicate any symptoms associated with coronavirus-19. Ebola Screen: No symptoms or risks identified at this time. Initial Sepsis Screen: Does the patient meet any 2 criteria? HR > 90 bpm. Does the patient have a suspected source of infection? No. Patient's initial sepsis screen is negative. Risk Assessment: Do you want to hurt yourself or someone else? Patient reports no desire to harm self or others. Onset of symptoms was February 16, 2024. 14:20 Method Of Arrival: Wheelchair kc6 14:20 Acuity: RODNEY 2 kc6 Historical: - Allergies: 14:21 No Known Allergies; kc6 - PMHx: 14:21 Anxiety; Broken Neck; palpitations; restless leg syndrome; right hear loss; Atrial kc6 fibrillation; - PSHx: 14:21 3 plates in skull; cardioversion; kc6 - Immunization history:: Adult Immunizations up to date. - Infectious Disease History:: Denies. - Social history:: Smoking status: Patient reports the use of cigarette tobacco products, denies chronic smoking, but will smoke occasionally. Screenin:30 [facility] ED Fall Risk Assessment (Adult) History of falling in the last 3 months, ld1 including since admission No falls in past 3 months (0 pts) Confusion or Disorientation No (0 pts) Intoxicated or Sedated No (0 pts) Impaired Gait No (0 pts) Mobility Assist Device Used No (0 pt) Altered Elimination No (0 pt) Score/Fall Risk Level 0 - 2 = Low Risk Oriented to surroundings, Maintained a safe environment, Educated pt \T\ family on fall prevention, incl call for assistance when getting out of bed, Assessed \T\ reinforced patient's understanding of fall precautions, Provided non-skid footwear, Hourly rounding (assess needs \T\ fall precautionary measures) done, Used ambulatory aids as needed (educated on \T\ assisted with), Used gait belt as appropriate. Abuse screen: Denies threats or abuse. Denies injuries from another. Nutritional screening: No deficits noted. Tuberculosis screening: No symptoms or risk factors identified. Assessment: 16:30 General: Appears in no apparent distress. comfortable, Behavior is calm, cooperative, ld1 appropriate for age. Pain: Denies pain. Neuro: Level of Consciousness is awake, alert, obeys commands, Oriented to person, place, time, situation, Appropriate for age. Cardiovascular: Capillary refill < 3 seconds Patient's skin is warm and dry. 16:30 Respiratory: Airway is patent Respiratory effort is even, unlabored. GI: Abdomen is ld1 flat, non-distended. : No signs and/or symptoms were reported regarding the genitourinary system. EENT: No signs and/or symptoms were reported regarding the EENT system. Derm: No signs and/or symptoms reported regarding the dermatologic system. Musculoskeletal: No signs and/or symptoms reported regarding the musculoskeletal system. 18:30 Reassessment: Report faxed to 4th floor - pt able to go [facility] at 1905. ld1 Vital Signs: 14:20 BP 112 / 91; Pulse 150; Resp 19 S; Temp 98.2(O); Pulse Ox 99% on R/A; Weight 92.99 kg kc6 (R); Height 6 ft. 0 in. (R); 14:34 BP 114 / 83; Pulse 147; Resp 18; Pulse Ox 100% on R/A; mb9 14:42 BP 116 / 76; Pulse 117; Resp 18; Pulse Ox 100% on R/A; mb9 16:30 BP 101 / 76; Pulse 118; Resp 18; Pulse Ox 96% on R/A; ld1 17:35 BP 106 / 79; Pulse 118; Resp 23; Pulse Ox 97% ; ld1 18:00 BP 111 / 89; Pulse 117; Resp 16; Pulse Ox 99% ; ld1 18:31 BP 104 / 83; Pulse 119; Resp 15; Pulse Ox 98% ; ld1 14:20 Body Mass Index 27.80 (92.99 kg, 182.88 cm) kc6 ED Course: 14:04 Patient arrived in ED. ra3 14:06 Chelsy Rodriguez FNP-C is PHCP. kb 14:06 Jose Martini DO is Attending Physician. kb 14:15 EKG done, by ED staff, reviewed by Jose Martini DO. mb9 14:20 Arm band placed on. EKG completed in triage. Results shown to MD. kc6 14:21 Triage completed. kc6 14:34 First set of blood cultures drawn by me. dd2 14:36 Initial lab(s) drawn, by me, sent to lab. Inserted saline lock: 20 gauge in right mb9 antecubital area, using aseptic technique. Blood collected. Flushed with 10 mL NS. 15:08 Blood Culture Adult (2) Sent. ld1 15:08 Lactate w/ 2H reflex if indic. Sent. ld1 15:39 US Extremity Venous W Compression Boris In Process Unspecified. EDMS 15:55 Chest Single View XRAY In Process Unspecified. EDMS 15:55 Femur Left XRAY In Process Unspecified. EDMS 15:55 Tib Fib Left XRAY In Process Unspecified. EDMS 15:55 Foot Left 3 View XRAY In Process Unspecified. EDMS 16:27 Aniceto Mcknight MD is Hospitalizing Provider. kb 16:30 Patient has correct armband on for positive identification. Placed in gown. Bed in low ld1 position. Call light in reach. Side rails up X2. air sampling and monitoring on. Pulse ox on. Sitter at bedside. NIBP on. Door closed. Noise minimized. Warm blanket given. 16:30 No provider procedures requiring assistance completed. ld1 16:38 Abbey Martini, RN is Primary Nurse. ld1 17:25 CM met with patient and his Naya at the bedside in the ED exam room . Patient ane identified by name and . Demographic sheet confirmed and change sent to appropriate personnel. Mr. Ricks states he lives with his Naya in a single story home. He reports prior to admission, he perform ADLs independently and usually without physical limitation, until this foot infection and is now using a cane to assist ambulation. He states he does not have any other DME, HH, home oxygen or other medical services at this time. No MPOA in place at this time. wishes to return home upon discharge and Naya states she will transport him home. CM team will continue to follow and coordinate care. 19:11 Patient admitted, IV remains in place. jj7 Administered Medications: 14:34 Drug: Metoprolol IVP 5 mg IVP every 5 minutes; Hold for SBP < 100 or HR < 60. x3 Route: mb9 IVP; Site: right antecubital; 14:35 Drug: NS 0.9% IV 500 ml IV at bolus once Route: IV; Rate: bolus; Site: right mb9 antecubital; 16:00 Follow up: Response: No adverse reaction; IV Status: Completed infusion; IV Intake: ld1 500ml 14:42 Drug: Metoprolol IVP 5 mg IVP every 5 minutes; Hold for SBP < 100 or HR < 60. x3 Route: mb9 IVP; Site: right antecubital; 15:00 Drug: Metoprolol IVP 5 mg IVP every 5 minutes; Hold for SBP < 100 or HR < 60. x3 Route: ld1 IVP; Site: right antecubital; 15:25 Follow up: Response: No adverse reaction ld1 16:58 Drug: Metoprolol PO 50 mg PO once Route: PO; ld1 17:00 Follow up: Response: No adverse reaction ld1 16:59 Drug: fentaNYL (PF) IVP 25 mcg IVP once Route: IVP; Site: right antecubital; ld1 17:00 Follow up: Response: No adverse reaction ld1 16:59 Drug: Ondansetron IVP 4 mg IVP once; over 2 minutes Route: IVP; Site: right antecubital;ld1 17:00 Follow up: Response: No adverse reaction ld1 16:59 Drug: Furosemide IVP 20 mg IVP once; give over 2 minutes Route: IVP; Site: right ld1 antecubital; 17:00 Follow up: Response: No adverse reaction ld1 18:03 Drug: ceFAZolin IVPB 1 grams IVPB once Route: IVPB; Site: right antecubital; ld1 18:03 Drug: Furosemide IVP 40 mg IVP once; give over 2 minutes In addition to previous 20mg ld1 dose Route: IVP; Site: right antecubital; 18:24 Follow up: Response: No adverse reaction ld1 Intake: 16:00 IV: 500ml; Total: 500ml. ld1 Outcome: 16:28 Decision to Hospitalize by Provider. kb 19:09 Admitted to Med/surg j 19:10 Admitted to Med/surg accompanied by tech, via wheelchair, room 414, j7 19:10 Condition: stable 19:10 Condition: good 19:11 Patient left the ED. jj7 Signatures: Dispatcher [employer] EDMS Chelsy Rodriguez, DOCK ASSOCIATE-C DOCK ASSOCIATE-CkAbbey Hamlin RN RN ld1 Milady Acosta, RN RN kc6 Diaz Lemons RN RN jj7 Tomás, Aidee Mohamud, RN RN mb9 Jaki Dunn Andie RN SHIVANI Broderick RN RN dd2
[2024-02-16] MEDS ORDERED: METOPROLOL XL 50 MG TAB PO ONE (16:45)
[2024-02-16] MEDS ORDERED: ONDANSETRON 4 MG/2 ML VIAL ONE (16:45)
[2024-02-16] MEDS ORDERED: FUROSEMIDE 20 MG/ 2ML VIAL ONE (16:45)
[2024-02-16] MEDS ORDERED: FENTANYL CITR 100 MCG/2 ML ONE (16:46)
[2024-02-16] MEDS ORDERED: CEFAZOLIN SODIUM 1 GM/VIAL ONE (17:22)
[2024-02-16] MEDS ORDERED: FUROSEMIDE 40 MG/4 ML VIAL ONE (17:22)
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
[2024-02-16] MEDS ORDERED: NA CHLORIDE 0.9% 100 ML ONE (17:23)
[2024-02-16] MEDS: HYDROCODONE/APAP 5/325 MG TAB PO ONE (20:13)
[2024-02-16] MEDS: SOTALOL HCL 80 MG TAB PO SCH (20:14)
[2024-02-16] MEDS: carvediloL 12.5 MG TAB PO SCH (20:14)
[2024-02-16] MEDS: APIXABAN 5 MG TABLET PO SCH (20:15)
[2024-02-16 21:39] VITALS: BMI 29.2
[2024-02-17] MEDS: CEFAZOLIN 1 GM in NA CHLORIDE 0.9% 50 ML IVPB SCH (00:25)
[2024-02-17] MEDS: MORPHINE 2 MG/ML SYR IV ONE (00:25)
[2024-02-17] MEDS ORDERED: HYDROCODONE/APAP 5/325 MG TAB PO PRN (07:58)
[2024-02-17] MEDS: FUROSEMIDE 40 MG/4 ML VIAL IV SCH (09:00)
[2024-02-17 09:07] LABS: Absolute Eosinophils 0.3 K/uL (0-0.5); Absolute Lymphocytes (CBC) 1.7 K/uL (0.7-4.9); Absolute Monocytes 0.3 K/uL (0.1-1.3); Absolute Neutrophil 1.8 K/uL (1.8-8.0); Basophils % 0.7 % (0-1.3); Eosinophils % 6.9 % (0-4.4); Hematocrit 36.3 % (39.6-49.0); Hemoglobin 12.6 g/dL (13.6-17.9); Lymphocytes % 42.6 % (15.3-44.8); MCH 36.3 pg (27.0-35.0); MCHC 34.8 g/dL (32.0-36.0); MCV 104.4 fL (80-100); MPV 8.7 fL (7.6-11.3); Monocytes % 6.8 % (3.3-12.3); Nucleated Red Blood Cells % 0.1 % (0-0); Platelets 105 thou/uL (152-406); RBC Red Blood Cell Count 3.48 M/uL (4.33-5.43)
[2024-02-17 09:30] LABS: Albumin 2.6 g/dL (3.4-5.0); Albumin/Globulin Ratio 0.7 (1.1-1.8); Bilirubin Direct 3.5 mg/dL (0-0.2); Globulin 3.7 g/dL (2.3-3.5); Protein, Total 6.3 g/dL (6.4-8.2)
[2024-02-17 09:31] LABS: Bilirubin Indirect, Calculated 2.4 mg/dL (0.2-0.8); Bilirubin Total 5.9 mg/dL (0.2-1.0); Thyroid Stimulating Hormone 4.14 uIU/mL (0.358-3.740)
[2024-02-17] MEDS: HYDROCODONE/APAP 7.5/325 MG TAB PO PRN (11:29)
--- NOTE | 2024-02-17 15:34 | P.PN ---
Date of Service: 02/17/24 Subjective: Feeling bit better today Still with lower extremity edema bilaterally, left lower extremity erythema and pain ROS: 10 point ROS as noted above, otherwise negative Physical exam GEN: Alert, oriented, NAD HEENT: Normal conjunctiva, sclera anicteric CV: Regular rate and rhythm, 2+ pitting edema bilateral lower extremities Pulm: Nonlabored respirations on room air ABD: Soft, nontender, nondistended MSK: No joint tenderness Integumentary: Erythema to left lower extremity with tenderness Neuro: Normal speech, normal affect Vitals reviewed Problem List Assessment: Left lower extremity cellulitis Bilateral lower extremity edema, dyspnea, pulmonary opacities suspect new onset CHFunknown EF Chronic atrial fibrillation noncompliant with anticoagulation now with RVR RLS Plan: Left lower extremity cellulitis Blood cultures obtained in ED Elevated heart rate secondary to A-fib with RVR Continue antibioticsAncef Blood cultures obtained in EDfollow Negative for DVT Bilateral lower extremity edema, dyspnea, pulmonary opacities suspect new onset CHFunknown EF No known history of CHF Echocardiogram ordered, cardiology consulted Continue diuresis with IV Lasix Continue sotalol, carvedilol Chronic atrial fibrillation noncompliant with anticoagulation now with RVR Cardiology recommending starting sotalol which was starting evening of 02/15 Continue sotalol, carvedilol Cardiology consultation, echocardiogram ordered EKG tonight after third dose of sotalol RLS Continue home indications DVT PPX: Eliquis Code status: Full Discharge Plan: Home Plan to discharge in: 48 Hours Time Spent Managing Pts Care (In Minutes): 35
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
[2024-02-17] MEDS ORDERED: carvediloL 6.25 MG TAB PO SCH (18:00)
[2024-02-17] MEDS: carvediloL 3.125 MG TAB PO SCH (18:00)
[2024-02-18] MEDS: MELATONIN 3 MG TABLET PO ONE (00:18)
[2024-02-18 06:46] LABS: Absolute Eosinophils 0.3 K/uL (0-0.5); Absolute Lymphocytes (CBC) 1.7 K/uL (0.7-4.9); Absolute Monocytes 0.3 K/uL (0.1-1.3); Absolute Neutrophil 1.9 K/uL (1.8-8.0); Basophils % 0.5 % (0-1.3); Hematocrit 35.9 % (39.6-49.0); Hemoglobin 12.2 g/dL (13.6-17.9); Lymphocytes % 40.5 % (15.3-44.8); MCHC 34.1 g/dL (32.0-36.0); MCV 105.5 fL (80-100); Nucleated Red Blood Cells % 0.2 % (0-0); Platelets 90 thou/uL (152-406); RBC Red Blood Cell Count 3.41 M/uL (4.33-5.43); Red Cell Distribution Width 14.8 % (12.1-15.2)
[2024-02-18] MEDS ORDERED: HEPA 1000U/500MLS 2,000 UNIT/1,000 ML BAG IV ONE (06:51)
[2024-02-18] MEDS ORDERED: ATROPINE SULF 1 MG/10 ML SYR IV ONE (06:52)
[2024-02-18] MEDS ORDERED: FENTANYL CITR 100 MCG/2 ML ONE (06:52)
[2024-02-18] MEDS ORDERED: HEPARIN 10,000 UNIT/10 ML VIAL IV ONE (06:52)
[2024-02-18] MEDS ORDERED: MIDAZOLAM HCL 2 MG/2 ML INJ ONE (06:52)
[2024-02-18] MEDS ORDERED: LIDOCAINE 1% 20 ML MDV ONE (06:52)
[2024-02-18] MEDS ORDERED: CLOPIDOGREL 75 MG TABLET ONE (06:53)
[2024-02-18] MEDS ORDERED: ASPIRIN 325 MG TAB ONE (06:53)
[2024-02-18] MEDS ORDERED: HEPARIN 5000 UNIT/ML 1 ML VIAL ONE (06:53)
[2024-02-18] MEDS ORDERED: TICAGRELOR 90 MG TABLET PO ONE (06:53)
[2024-02-18] MEDS ORDERED: NA CHLORIDE 0.9% 500 ML ONE ×2 (07:04→07:06)
[2024-02-18 07:06] LABS: Albumin 2.4 g/dL (3.4-5.0); Albumin/Globulin Ratio 0.7 (1.1-1.8); Bilirubin Indirect, Calculated 2.6 mg/dL (0.2-0.8); Bilirubin Total 5.6 mg/dL (0.2-1.0); Globulin 3.5 g/dL (2.3-3.5); Protein, Total 5.9 g/dL (6.4-8.2)
--- NOTE | 2024-02-18 08:10 | ECHO ---
HEIGHT: 6 ft 0 in WEIGHT: 216 lb 0 oz DATE OF STUDY: 02/17/[address]: Terrance Resendez NP 2-DIMENSIONAL: YES M.MODE: YES DOPPLER: YES COLOR FLOW: YES TDS: NO PORTABLE: YES DEFINITY: NO BUBBLE STUDY: NO DIAGNOSIS: ATRIAL FIBRILLATION, EDEMA, SUSPECTED CONGESTIVE HEART FAILURE CARDIAC HISTORY: CATHERIZATION: NO SURGERY: NO PROSTHETIC VALVE: NO PACEMAKER: NO MEASUREMENTS (cm) DIASTOLIC (NORMALS) SYSTOLIC (NORMALS) IVSd 1.2 (0.6-1.2) LA Diam 4.7 (1.9-4.0) LVEF 15-20% LVIDd 6.6 (3.5-5.7) LVIDs 5.4 (2.0-3.5) %FS 19% LVPWd 1.2 (0.6-1.2) Ao Diam 3.2 (2.0-3.7) 2 DIMENSIONAL ASSESSMENT: RIGHT ATRIUM: NORMAL LEFT ATRIUM: MODERATLY DILATED RIGHT VENTRICLE: NORMAL LEFT VENTRICLE: MODERATLY DILATED TRICUSPID VALVE: MODEREATE TRICUSPID REGURGITATION MITRAL VALVE: SEVERE MITRAL REGURGITATION PULMONIC VALVE: NORMAL AORTIC VALVE: NORMAL PERICARDIAL EFFUSION: NONE AORTIC ROOT: NORMAL LEFT VENTRICULAR WALL MOTION: SEVERE GLOBAL HYPOKINESIS. DOPPLER/COLOR FLOW: DIASTOLIC DYSFUNCTION. COMMENTS: 1. SEVERELY REDUCED LEFT VENTRICULAR SYSTOLIC FUNCTION, EJECTION FRACTION 15-20%, SEVERE GLOBAL HYPOKINESIS. 2. DIASTOLIC DYSFUNCTION. 3. SEVERE MITRAL REGURGITATION (POSTERIOR DIRECTED JET). 4. MODERATELY DILATED LEFT ATRIAL AND LEFT VENTRICULAR CAVITIES. TECHNOLOGIST: ADRI GOMEZ
[2024-02-18] MEDS ORDERED: LIDOCAINE 1% MPF 5 ML VIAL ONE (09:21)
[2024-02-18] MEDS ORDERED: propofoL 200 MG/20 ML VIAL IV ONE ×2 (09:21→09:45)
--- NOTE | 2024-02-18 11:58 | RAD REPORT ---
EXAM DESCRIPTION: US - Abdomen Exam Limited - 02/18/2024 11:31 am CLINICAL HISTORY: elevated t bili, eval liver/gallbladder Abdominal pain COMPARISON: No comparisons FINDINGS: The gallbladder demonstrates no gallstones. No pericholecystic fluid or gallbladder wall t hickening. The common bile duct is normal measuring 4 mm. The liver demonstrates significant enlargement with diffuse fatty liver pattern. Splenomegaly is note d large collateral vessels are seen in the central about the pancreas. IMPRESSION: Significant hepatic steatosis pattern. Moderate splenomegaly also present. No gallbladder/biliary tree abnormality of concern. Large prominent collateral vessels are present in the central abdomen. Recommend CT or MR imaging of the abdomen for further evaluation.
--- NOTE | 2024-02-18 12:23 | P.PN ---
Subjective Date of Service: 02/18/24 Chief Complaint: LLE cellulitis, acute CHF Subjective: No new changes, No C/O voiced, Tolerating diet, Ambulating, Improving Review of Systems 10-point ROS is otherwise unremarkable Physical Examination - Vital Signs Temperature: 97.2 F Blood Pressure: 97/71 Pulse: 61 Respirations: 16 Pulse Ox (%): 98 - Physical Exam General: Alert, In no apparent distress HEENT: Atraumatic, PERRLA, EOMI Neck: Supple, JVD not distended Respiratory: Clear to auscultation bilaterally, Normal air movement Cardiovascular: Regular rate/rhythm, Normal S1 S2 Gastrointestinal: Normal bowel sounds, No tenderness Musculoskeletal: No tenderness Integumentary: No rashes Neurological: Normal speech, Normal tone, Normal affect Lymphatics: No axilla or inguinal lymphadenopathy - Studies Medications List Reviewed: Yes Assessment And Plan - Current Problems (Diagnosis) (1) Atrial fibrillation Current Visit: Yes Status: Acute Plan: Patient is s/p JORGE DCCV Continue Sotalol 80 mg po BID Eliquis 5 mg po BID (2) Acute on chronic combined systolic (congestive) and diastolic (congestive) heart failure Current Visit: Yes Status: Acute Plan: Echo shows combined systolic and diastolic heart failure with elevated filling pressures Coronary angiogram done today and shows normal coronaries with LVEDP 5 mmHg Switch to lasix 40 mg po BID Continue Coreg 3.125 mg po BID Start Lisinopril 2.5 mg daily (3) Mitral regurgitation Current Visit: Yes Status: Acute Plan: Look severe on echo and JORGE, will need repeated Echo in 4-6 weeks to check on MR as long as patient is in sinus rhythm and tolerating medications well, if still severe then will need outpatient evaluation with CT surgery.
--- NOTE | 2024-02-18 12:54 | EKG ---
Test Date: 2024-02-17 Test Time: 19:56:38 Rubber Compounder Formulator: MARA MEASUREMENT RESULTS: Intervals: Rate: 121 DC: QRSD: 102 QT: 286 QTc: 406 [place]: P: DC: QRS: 111 T: 92 INTERPRETIVE STATEMENTS: Atrial fibrillation Left posterior fascicular block Nonspecific T wave abnormality Abnormal ECG Compared to ECG 02/16/2024 14:14:39 Left posterior fascicular block now present T-wave abnormality now present Atrial fibrillation no longer present ST (T wave) deviation no longer present Electronically Signed On 02-18-24 12:53:54 CDT by Miguel Angel Barajas
--- NOTE | 2024-02-18 12:58 | EKG ---
Test Date: 2024-02-16 Test Time: 14:14:39 Starch Factory Laborer: CLARITZA MEASUREMENT RESULTS: Intervals: Rate: 143 SD: QRSD: 102 QT: 302 QTc: 466 [place]: P: SD: QRS: 80 T: -83 INTERPRETIVE STATEMENTS: Atrial fibrillation Nonspecific ST and T wave abnormality, probably digitalis effect Abnormal ECG Compared to ECG 04/01/2022 02:52:51 ST (T wave) deviation now present Sinus rhythm no longer present Right bundle-branch block no longer present Myocardial infarct finding no longer present Electronically Signed On 02-18-24 12:55:50 CDT by Miguel Angel Barajas
--- NOTE | 2024-02-18 13:44 | TEE ---
TRANSESOPHAGEAL ECHOCARDIOGRAM REPORT CARDIOLOGY DEPARTMENT DATE OF STUDY: 02/18/2024 HEIGHT: 6'0 WEIGHT: 216 DIAGNOSIS: ATRIAL FIBRILLATION, CARDIOVERSION CARDIAC HISTORY: CATHERIZATION: YES SURGERY: NO PROSTHETIC VALVE: NO PACEMAKER: NO 2 DIMENSIONAL ASSESSMENT: RIGHT ATRIUM: LEFT ATRIUM: RIGHT VENTRICLE: LEFT VENTRICLE: TRICUSPID VALVE: MITRAL VALVE: PULMONIC VALVE: AORTIC VALVE: PERICARDIAL EFFUSION: AORTIC ROOT: COMMENTS: 1. NORMAL LEFT ATRIAL APPENDAGE, NO THROMBUS. 2. SEVERE ECENTRIC MITRAL REGURGITATION WITH MULTIPLE JETS SEEN. 3. MODERATE DILATED LEFT ATRIUM. TECHNOLOGIST: ZACK PRITCHETT
--- NOTE | 2024-02-18 15:04 | P.PN ---
Date of Service: 02/18/24 Subjective: Feeling bit better today Still with lower extremity edema bilaterally, left lower extremity erythema and pain ROS: 10 point ROS as noted above, otherwise negative Physical exam GEN: Alert, oriented, NAD HEENT: Normal conjunctiva, sclera anicteric CV: Regular rate and rhythm, 2+ pitting edema bilateral lower extremities Pulm: Nonlabored respirations on room air ABD: Soft, nontender, nondistended MSK: No joint tenderness Integumentary: Erythema to left lower extremity with tenderness Neuro: Normal speech, normal affect Vitals reviewed Problem List Assessment: Left lower extremity cellulitis Acute combined systolic/diastol congestive heart failure Chronic atrial fibrillation noncompliant with anticoagulation now with RVR Elevated bilirubin levels RLS Plan: Left lower extremity cellulitis Blood cultures obtained in ED Elevated heart rate secondary to A-fib with RVR Continue antibioticsAugmentin Blood cultures obtained in EDno growth thus far Negative for DVT Acute combined systolic/diastol congestive heart failure Echo shows 1. SEVERELY REDUCED LEFT VENTRICULAR SYSTOLIC FUNCTION, EJECTION FRACTION 15-20%, SEVERE GLOBAL HYPOKINESIS. 2. DIASTOLIC DYSFUNCTION. 3. SEVERE MITRAL REGURGITATION (POSTERIOR DIRECTED JET). 4. MODERATELY DILATED LEFT ATRIAL AND LEFT VENTRICULAR CAVITIES. Switch to oral Lasix per cardiology Will need repeat echo outpatient to further evaluate mitral valve in 4 to 6 weeks Coronary angiogram completed 02/16 with normal coronaries Cardiology would like patient started on lisinopril 2.5 mg daily Chronic atrial fibrillation noncompliant with anticoagulation now with RVR Patient was started on sotalol without significant improvement JORGE cardioversion was performed 02/17-now in sinus rhythm Continue sotalol 80 mg twice daily, carvedilol 3.125 mg twice daily Elevated bilirubin levels Bilirubin level significantly elevated Abdominal ultrasound performed which shows IMPRESSION: Significant hepatic steatosis pattern. Moderate splenomegaly also present. No gallbladder/biliary tree abnormality of concern. Large prominent collateral vessels are present in the central abdomen. Recommend CT or MR imaging of the abdomen for further evaluation Will discuss further with radiology to determine plan of care as well as patient. RLS Continue home indications DVT PPX: Eliquis Code status: Full Discharge Plan: Home Plan to discharge in: 48 Hours Time Spent Managing Pts Care (In Minutes): 35
[2024-02-18 15:51] VITALS: O2SAT 98
[2024-02-18] MEDS: AMOX/K CLAV 875 MG TAB PO SCH (16:59)
[2024-02-18] MEDS: FUROSEMIDE 40 MG TABLET PO SCH (17:00)
--- NOTE | 2024-02-18 20:21 | OP ---
Date of Procedure: 02/18/2024 Surgeon: Miguel Angel Barajas Procedures Performed: 1.Left heart catheterization. 2.Selective coronary angiogram. Indication For Procedure: Acute systolic heart failure. Complications: None. Estimated Blood Loss: Less than 50 cc. Access: Right radial, closed by TR band. Sedation Time: 20 minutes with 1 of Versed and 50 of fentanyl. Description Of Procedure: After risks, benefits, and alternatives were explained to the patient, the patient agreed to proceed with the procedure and signed informed consent. [facility] to the clinical laboratory scientist, prepped and draped in a sterile fashion. Time-out was performed. Sedation was administered. Next, right radial ultrasound access was obtained. [place] 4 catheter was advanced over a J-wire to the LV cavity. LVEDP was obtained. Pullback did not show any gradient. Same catheter was used for selective angiogram of the left and right coronary systems. At the end of procedure, ca theter was removed over a J-wire. Sheath was removed. TR band was applied and hemostasis achieved. The patient was moved back to recovery in stable condition. Findings: 1.Left main, normal. 2.LAD, normal. 3.Left circ, normal. 4.RCA, normal. 5.LVEDP 5 mmHg. Assessment And Plan: 1.Normal coronaries. 2.Normal filling pressures. 3.Nonischemic cardiomyopathy. 4.Plan will be to continue aggressive medical treatment for heart failure. JEWELS/LEAH Voice ID: [id number] Report ID: [id number]
--- NOTE | 2024-02-18 23:14 | OP ---
Date of Procedure: 02/18/2024 Surgeon: Miguel Angel Barajas Procedure Performed: JORGE-guided cardioversion. Indication For Procedure: Atrial fibrillation. Complications: None. Estimated Blood Loss: None. Sedation: Sedation was done by Anesthesia Team. Description Of Procedure: After risks, benefits, and alternatives were explained to the patient, the patient agreed to proceed with the procedure and signed informed consent. The patient was brought b ack to the OR and time-out was performed. Sedation was administered by Anesthesia Team. JORGE probe w as inserted. Images were obtained. The JORGE probe was removed. Next, synchronized cardioversion was done with 200 joules. The patient stayed in atrial fibrillation, so another synchronized cardiovers ion was done with 300 joules. The patient was converted back into sinus rhythm. The patient was mov ed to recovery in stable condition. Assessment: Atrial fibrillation, status post successful JORGE-guided cardioversion. Plan: 1.Continue sotalol 80 mg p.o. b.i.d. 2.Continue Eliquis 5 mg p.o. b.i.d. JEWELS/LEAH Voice ID: [id number] Report ID: [id number]
[2024-02-19 07:59] LABS: Albumin 2.5 g/dL (3.4-5.0); Albumin/Globulin Ratio 0.6 (1.1-1.8); Anion Gap 7.3 mEq/L (5.0-15.0); Bilirubin Total 4.8 mg/dL (0.2-1.0); Globulin 3.9 g/dL (2.3-3.5); Potassium 4.3 mEq/L (3.5-5.1); Protein, Total 6.4 g/dL (6.4-8.2)
[2024-02-19 08:14] VITALS: TEMP 97.1
[2024-02-19] MEDS: lisinopriL 5 MG TAB PO SCH (09:00)
[2024-02-19 12:30] VITALS: BP 101/71
[2024-02-19] MEDS: CODEINE 30MG/APAP 300MG TAB PO PRN (12:59)
--- NOTE | 2024-02-19 14:02 | P.PN ---
Subjective Date of Service: 02/19/24 Chief Complaint: LLE cellulitis, acute CHF Subjective: No new changes, No C/O voiced, Tolerating diet, Ambulating, Improving Review of Systems 10-point ROS is otherwise unremarkable Physical Examination - Vital Signs Temperature: 97.1 F Blood Pressure: 101/71 Pulse: 70 Respirations: 16 Pulse Ox (%): 97 - Physical Exam General: Alert, In no apparent distress HEENT: Atraumatic, PERRLA, EOMI Neck: Supple, JVD not distended Respiratory: Clear to auscultation bilaterally, Normal air movement Cardiovascular: Regular rate/rhythm, Normal S1 S2, Edema Gastrointestinal: Normal bowel sounds, No tenderness Musculoskeletal: No tenderness Integumentary: No rashes Neurological: Normal speech, Normal tone, Normal affect Lymphatics: No axilla or inguinal lymphadenopathy - Studies Medications List Reviewed: Yes Assessment And Plan - Current Problems (Diagnosis) (1) Atrial fibrillation Current Visit: Yes Status: Acute Plan: Patient is s/p JORGE DCCV Continue Sotalol 80 mg po BID Eliquis 5 mg po BID (2) Acute on chronic combined systolic (congestive) and diastolic (congestive) heart failure Current Visit: Yes Status: Acute Plan: Echo shows combined systolic and diastolic heart failure with elevated filling pressures Coronary angiogram done today and shows normal coronaries with LVEDP 5 mmHg lasix 40 mg po BID Coreg and lisinopril on hold as patient BP is soft, will start as outpatient. (3) Mitral regurgitation Current Visit: Yes Status: Acute Plan: Look severe on echo and JORGE, will need repeated Echo in 4-6 weeks to check on MR as long as patient is in sinus rhythm and tolerating medications well, if still severe then will need outpatient evaluation with CT surgery.
--- NOTE | 2024-02-19 14:41 | EKG ---
Test Date: 2024-02-18 Test Time: 10:05:32 Pulmonary Physical Therapist: YOLANDA MEASUREMENT RESULTS: Intervals: Rate: 60 VA: 210 QRSD: 100 QT: 484 QTc: 484 [place]: P: 70 VA: 210 QRS: 63 T: 65 INTERPRETIVE STATEMENTS: Sinus rhythm with 1st degree AV block Cannot rule out Anterior infarct, age undetermined Abnormal ECG Compared to ECG 02/17/2024 19:56:38 First degree AV block now present Myocardial infarct finding now present Atrial fibrillation no longer present Left posterior fascicular block no longer present T-wave abnormality no longer present Electronically Signed On 02-19-24 14:39:05 CDT by Miguel Angel Barajas
--- NOTE | 2024-02-19 15:04 | P.DS ---
Admission Date: 02/16/24 Discharge Date: 02/19/24 Disposition: ROUTINE DISCHARGE Discharge Condition: GOOD Reason for Admission: LLE cellulitis, acute CHF Consultations: Cardiology Procedures: JORGE cardioversion, coronary angiogram Brief History of Present Illness: 63-year-old male with history of atrial fibrillation presents to the emergency department with chief complaint bilateral lower extremity swelling, left lower extremity erythema. He reports an injury while cutting thousand trees to the left lower extremity which has now become erythematous and painful, both lower e xtremities have 3+ pitting edema and his chest x-ray does show bilateral pulmonary opacities, suspect there is some degree of CHF as well. Patient currently in atrial fibrillation with RVR initial rate was 150 this has improved to the 115 range after some IV metoprolol. At home patient takes metoprolol 50 mg mouth twice daily, he is noncompliant with anticoagulation. He reports he was previously placed on Eliquis but had bruising if that reason stopped taking it. ED prior wishes to admit patient for left lower extremity cellulitis, suspected acute CHFunknown EF Hospital Course: Assessment: Left lower extremity cellulitis Acute combined systolic/diastol congestive heart failure Chronic atrial fibrillation noncompliant with anticoagulation now with RVR Elevated bilirubin levels RLS Patient was admitted to the hospital for left lower extremity cellulitis, A-fib with RVR, suspected CHF with lower extremity edema. He was treated initially with IV antibiotics and transition to oral Augmentin for left lower extremity cellulitis which has been improving. He has been afebrile with normal white blood cell count. In regards to his atrial fibrillation, he does have a history of chronic atrial fibrillation and had been noncompliant with anticoagulation taking only metoprolol. He was transitioned to sotalol 80 mg by mouth twice daily but had little improvement, echocardiogram was obtained during hospitalization which showed severely reduced left ventricular systolic function, ejection fraction 15 to 20%, severe global hypokinesis, diastolic dysfunction, severe mitral regurgitation, moderately dilated left atrial and left ventricular cavities. He underwent coronary angiogram which showed normal coronaries on 02/17 as well as JORGE cardioversion which was successful. Patient has since remained in sinus rhythm. Given his new onset systolic congestive heart failure we attempted to start patient on guideline directed therapy including low-dose beta-azam and RADHA inhibitor although his blood pressure was too too low to tolerate these medications. He has tolerated sotalol and Lasix with a systolic pressure around 100 and he will need to remain on these 2 medications for the time being and follow-up closely with cardiology outpatient. He will also need a repeat echocardiogram in 4 to 6 weeks to reevaluate his mitral valve regurgitation and EF/CHF. Additionally patient's T. bili was significantly elevated on admission at 6.4, and has improved down to 4.8 at this time, LFTs otherwise were normal, abdominal ultrasound was obtained which showed significant hepatic steatosis, moderate splenomegaly, large prominent collateral vessels present in the central abdomen, suspect cirrhosis of the liver. Patient was a former drinker, counseled to avoid alcohol and will need follow-up with GI as an outpatient for further evaluation. Patient anxious to be discharged to hospital at this time, will be discharged on the following new medications Sotalol 80 mg by mouth twice daily Eliquis 5 mg by mouth twice daily Augmentin 875 mg by mouth twice daily for 5 days Lasix 40 mg by mouth twice daily As needed T3-do not take if the top number for your blood pressure is less than 105 Please follow-up with your primary care doctor in 1 to 2 weeks Please follow-up with Dr. Barajas cardiology in 1 week Please follow-up with GI for suspected cirrhosis You will need repeat echocardiogram in 4 to 6 weeks to reevaluate your ejection fraction and mitral valve Physical exam GEN: Alert, oriented, NAD HEENT: Normal conjunctiva, sclera anicteric CV: Regular rate and rhythm, 2+ pitting edema bilateral lower extremities Pulm: Nonlabored respirations on room air ABD: Soft, nontender, nondistended MSK: No joint tenderness Integumentary: Erythema to left lower extremity with tenderness Neuro: Normal speech, normal affect Vitals reviewed Vital Signs/Physical Exam: Temp Pulse Resp BP Pulse Ox 97.1 F 70 16 101/71 97 02/19/24 14:02 02/19/24 14:02 02/19/24 14:02 02/19/24 14:02 02/19/24 14:02 Laboratory Data at Discharge: WBC 4.20 thou/uL (4.3-10.9) L 02/18/24 05:37 Hgb 12.2 g/dL (13.6-17.9) L 02/18/24 05:37 Hct 35.9 % (39.6-49.0) L 02/18/24 05:37 Plt Count 90 thou/uL (152-406) L 02/18/24 05:37 PT 19.6 SECONDS (9.4-12.5) H 02/16/24 14:34 INR 1.78 02/16/24 14:34 APTT 31.9 SECONDS (24.3-36.9) 02/16/24 14:34 Sodium 137 mEq/L (136-145) 02/19/24 07:30 Potassium 4.3 mEq/L (3.5-5.1) 02/19/24 07:30 BUN 18 mg/dL (7-18) 02/19/24 07:30 Creatinine 1.47 mg/dL (0.70-1.30) H 02/19/24 07:30 Glucose 101 mg/dL (74-106) 02/19/24 07:30 Total Bilirubin 4.8 mg/dL (0.2-1.0) H 02/19/24 07:30 AST 47 U/L (15-37) H 02/19/24 07:30 ALT 18 U/L (16-61) 02/19/24 07:30 Alkaline Phosphatase 61 U/L (45-117) 02/19/24 07:30 Triglycerides 39 mg/dL (<150) 02/17/24 08:51 Cholesterol 60 mg/dL (<200) 02/17/24 08:51 HDL Cholesterol 34 mg/dL (40-60) L 02/17/24 08:51 Cholesterol/HDL Ratio 1.76 02/17/24 08:51 Home Medications: Amox/Clavulanate [Augmentin 875-125 Tab*] 875 mg PO BIDWM 5 Days #10 tab 02/19/24 Apixaban [Eliquis] 5 mg PO BID #60 tab 02/19/24 Codeine/APAP [Tylenol W/Codeine #3 tab] 1 tab PO Q6HP PRN #10 tab 02/19/24 Furosemide [Lasix*] 40 mg PO BIDL #60 tab 02/19/24 Sotalol HCl [Betapace*] 80 mg PO BID 6AM 6PM #60 tab 02/19/24 New Medications: Codeine/APAP [Tylenol W/Codeine #3 tab] 1 tab PO Q6HP PRN #10 tab PRN Reason: Pain Amox/Clavulanate [Augmentin 875-125 Tab*] 875 mg PO BIDWM 5 Days #10 tab Sotalol HCl [Betapace*] 80 mg PO BID 6AM 6PM #60 tab Apixaban [Eliquis] 5 mg PO BID #60 tab Furosemide [Lasix*] 40 mg PO BIDL #60 tab Physician Discharge Instructions: Patient was admitted to the hospital for left lower extremity cellulitis, A-fib with RVR, suspected CHF with lower extremity edema. He was treated initially with IV antibiotics and transition to oral Augmentin for left lower extremity cellulitis which has been improving. He has been afebrile with normal white blood cell count. In regards to his atrial fibrillation, he does have a history of chronic atrial fibrillation and had been noncompliant with anticoagulation taking only metoprolol. He was transitioned to sotalol 80 mg by mouth twice daily but had little improvement, echocardiogram was obtained during hospitalization which showed severely reduced left ventricular systolic function, ejection fraction 15 to 20%, severe global hypokinesis, diastolic dysfunction, severe mitral regurgitation, moderately dilated left atrial and left ventricular cavities. He underwent coronary angiogram which showed normal coronaries on 02/17 as well as JORGE cardioversion which was successful. Patient has since remained in sinus rhythm. Given his new onset systolic congestive heart failure we attempted to start patient on guideline directed therapy including low-dose beta-azam and RADHA inhibitor although his blood pressure was too too low to tolerate these medications. He has tolerated sotalol and Lasix with a systolic pressure around 100 and he will need to remain on these 2 medications for the time being and follow-up closely with cardiology outpatient. He will also need a repeat echocardiogram in 4 to 6 weeks to reevaluate his mitral valve regurgitation and EF/CHF. Additionally patient's T. bili was significantly elevated on admission at 6.4, and has improved down to 4.8 at this time, LFTs otherwise were normal, abdominal ultrasound was obtained which showed significant hepatic steatosis, moderate splenomegaly, large prominent collateral vessels present in the central abdomen, suspect cirrhosis of the liver. Patient was a former drinker, counseled to avoid alcohol and will need follow-up with GI as an outpatient for further evaluation. Patient anxious to be discharged to hospital at this time, will be discharged on the following new medications Sotalol 80 mg by mouth twice daily Eliquis 5 mg by mouth twice daily Augmentin 875 mg by mouth twice daily for 5 days Lasix 40 mg by mouth twice daily As needed T3-do not take if the top number for your blood pressure is less than 105 Please follow-up with your primary care doctor in 1 to 2 weeks Please follow-up with Dr. Barajas cardiology in 1 week Please follow-up with GI for suspected cirrhosis You will need repeat echocardiogram in 4 to 6 weeks to reevaluate your ejection fraction and mitral valve Diet: AHA Activity: Ad mindy Followup: Lucie Becerra NP [Primary Care Provider] - 1-2 Weeks Miguel Angel Barajas MD [ACTIVE - CAN ADMIT] - 1 Week Tito Paulino MD [ASSOCIATE-ACTIVE - CAN ADMIT] - 1-2 Weeks Time spent managing pt's care (in minutes): 41
== END 2024-02-19 15:01 | disposition home or self-care (01) | DRG 286 ==
LOC: ER 14:00 → ERHOLD 17:13 → 4TH 18:23
PROVIDERS: ADMIT Hospitalist; ATTEND Hospitalist
PROC: 4A023N7 Measurement of Cardiac Sampling and Pressure, Left Heart, Percutaneous Approach (ICD-10-PCS; principal; 2024-02-18)
PROC: B2111ZZ Fluoroscopy of Multiple Coronary Arteries using Low Osmolar Contrast (ICD-10-PCS; 2024-02-18)
PROC: B24BZZ4 Ultrasonography of Heart with Aorta, Transesophageal (ICD-10-PCS; 2024-02-18)
PROC: 5A2204Z Restoration of Cardiac Rhythm, Single (ICD-10-PCS; 2024-02-18)
DX: I48.20 Chronic atrial fibrillation, unspecified (principal); I50.43 Acute on chronic combined systolic (congestive) and diastolic (congestive) heart failure; L03.116 Cellulitis of left lower limb; G25.81 Restless legs syndrome; M54.9 Dorsalgia, unspecified; I34.0 Nonrheumatic mitral (valve) insufficiency; H91.8X1 Other specified hearing loss, right ear; F17.210 Nicotine dependence, cigarettes, uncomplicated; Z79.01 Long term (current) use of anticoagulants; Z79.899 Other long term (current) drug therapy; Z91.148 Patient's other noncompliance with medication regimen for other reason
CPT/HCPCS: 36415; 71045; 76705; 76937; 80048; 80053; 80061; 80076; 83605; 83880; 84439; 84443; 84484; 85025; 85610; 85730; 87040; 92960; 93005; 93306; 93312; 93458; 93970; 96361; 96374; 96375; 99152; 99285; C1893; J0461; J0690; J1644; J1940; J2001; J2250; J2270; J2405; J2704; J3010; J7040; Q9966

== ENCOUNTER 2024-09-23 13:30 | Emergency (ER) | payer MEDICAID, OTHER ==
--- OUTSIDE RECORDS SUMMARY | 2024-09-23 14:25 | XMS REPORT | Continuity of Care Document ---
Author Name Unknown Address [address] [place] [address] Organization [facility] [place] Address [address] [place] [address] Care Team Providers Care Adapted Physical Education Specialist Name Role Phone Lucie Becerra Attending Clinician Unavailable KRAIG Attending Clinician Unavailable MATTHEW Attending Clinician Unavailable Lance Varela Attending Clinician [phone] KRAIG Admitting Clinician Unavailable MATTHEW Admitting Clinician Unavailable Payers Payer Name Policy Type Policy Number Effective Date Expirati on Date Source [facility] TXSTAR [id number] [facility] (MEDICAID HMO) [id number] 2020 00:00:00 Problems Condition Name Condition Details Condition Category Status Onset Date Resolution Date Last Treatment Date Treating Clinician Comments Source [id number] Tachycardi a Problem [facility] Disorders of bilirubin excretion Elevated bilirubin Problem [facility] [id number] Atrial fibrillati on, unspecifie d type Problem [facility] [id number] Acute combined systolic and diastolic congestive heart failure Problem [facility] [id number] Paroxysmal atrial fibrillati on Problem [facility] [id number] RLS (restless legs syndrome) Problem [facility] [id number] Primary insomnia Problem [facility] Paroxysmal supraventr icular tachycardi a (disorder) PSVT (paroxysma l supraventr icular tachycardi a) Problem [facility] [id number] Chronic hepatitis C without hepatic coma Problem [facility] [id number] Chronic pain syndrome Problem [facility] [id number] Anxiety Problem [facility] [id number] Anticoagul ation therapy continued upon discharge Problem [facility] [id number] Abnormal CBC Problem [facility] [id number] Anemia with low platelet count Problem [facility] [id number] Neutropeni a, unspecifie d type Problem [facility] [id number] Decreased platelet count Problem [facility] Social History Social Habit Start Date Stop Date Quantity Comments Source History of Tobacco Use Current Smoker [facility] Sex Assigned At [facility] Smoking Status Start Date Stop Date Source Heavy Tobacco Smoker [facility] Current Smoker 2024-07-22 00:00:00 [facility] Medications Ordered Medication Name Filled Medication Name [...] tablet every 8 hours by oral route. [facility] alprazolam 0.25 mg tablet TAKE 1 TABLET BY MOUTH TWICE A DAY alprazolam 0.25 mg tablet TAKE 1 TABLET BY MOUTH TWICE A DAY No alprazolam 0.25 mg tablet TAKE 1 TABLET BY MOUTH TWICE A DAY [facility] alprazolam 0.5 mg tablet TAKE 1 TABLET BY MOUTH TWICE A DAY alprazolam 0.5 mg tablet TAKE 1 TABLET BY MOUTH TWICE A DAY No alprazolam 0.5 mg tablet TAKE 1 TABLET BY MOUTH TWICE A DAY [facility] baclofen 20 mg tablet TAKE 1 TABLET BY MOUTH WITH FOOD OR MILK EVERY 8 HRS NEEDED baclofen 20 mg tablet TAKE 1 TABLET BY MOUTH WITH FOOD OR MILK EVERY 8 HRS NEEDED No baclofen 20 mg tablet TAKE 1 TABLET BY MOUTH WITH FOOD OR MILK EVERY 8 HRS NEEDED [facility] QUEtiapine Fumarate 50 MG QUEtiapine Fumarate 50 MG No QUEtiapine Fumarate 50 MG buspirone 5 mg tablet TAKE 1 TABLET BY MOUTH TWICE A DAY buspirone 5 mg tablet TAKE 1 TABLET BY MOUTH TWICE A DAY No buspirone 5 mg tablet TAKE 1 TABLET BY MOUTH TWICE A DAY [facility] rOPINIRole HCl 1 MG rOPINIRole HCl 1 MG No QD rOPINIRole HCl 1 MG [facility] Metoprolol Tartrate 50 MG Metoprolol Tartrate 50 MG No 1{table t_with_ food} BID Metoprolol Tartrate 50 MG Gabapentin 300 MG Gabapentin 300 MG No 1{capsu le} TID Gabapentin 300 MG Sotalol HCl 80 MG Sotalol HCl 80 MG No Sotalol HCl 80 MG Furosemide 40 MG Furosemide 40 MG No Furosemide 40 MG Eliquis 5 MG Eliquis 5 MG No 1{table t} BID Eliquis 5 MG cephalexin 500 mg capsule TAKE 1 CAPSULE BY MOUTH EVERY 6 HOURS FOR 10 DAYS FOR INFECTIOUS PROCEESS cephalexin 500 mg capsule TAKE 1 CAPSULE BY MOUTH EVERY 6 HOURS FOR 10 DAYS FOR INFECTIOUS PROCEESS No cephalexin 500 mg capsule TAKE 1 CAPSULE BY MOUTH EVERY 6 HOURS FOR 10 DAYS FOR INFECTIOUS PROCEESS [facility] clonazepam 0.5 mg tablet TAKE 1 TABLET BY MOUTH TWICE A DAY NEEDED FOR ANXIETY clonazepam 0.5 mg tablet TAKE 1 TABLET BY MOUTH TWICE A DAY NEEDED FOR ANXIETY No clonazepam 0.5 mg tablet TAKE 1 TABLET BY MOUTH TWICE A DAY NEEDED FOR ANXIETY [facility] cyclobenzap rine 5 mg tablet TAKE 1 TABLET BY MOUTH THREE TIMES DAILY NEEDED MUSCLE SPASMS cyclobenzap rine 5 mg tablet TAKE 1 TABLET BY MOUTH THREE TIMES DAILY NEEDED MUSCLE SPASMS No cyclobenza harleen 5 mg tablet TAKE 1 TABLET BY MOUTH THREE TIMES DAILY NEEDED MUSCLE SPASMS [facility] Eliquis 5 mg tablet TAKE 1 TABLET BY MOUTH TWICE A DAY Eliquis 5 mg tablet TAKE 1 TABLET BY MOUTH TWICE A DAY No Eliquis 5 mg tablet TAKE 1 TABLET BY MOUTH TWICE A DAY [facility] hydrocodone 10 mg-acetamin ophen 325 mg tablet TAKE 1 TABLET BY MOUTH TWICE A DAY NEEDED hydrocodone 10 mg-acetamin ophen 325 mg tablet TAKE 1 TABLET BY MOUTH TWICE A DAY NEEDED No hydrocodon e 10 mg-acetami nophen 325 mg tablet TAKE 1 TABLET BY MOUTH TWICE A DAY NEEDED [facility] hydrocodone 5 mg-acetamin ophen 325 mg tablet TAKE 1 TABLET BY MOUTH TWICE DAILY FOR 28 DAYS hydrocodone 5 mg-acetamin ophen 325 mg tablet TAKE 1 TABLET BY MOUTH TWICE DAILY FOR 28 DAYS No hydrocodon e 5 mg-acetami nophen 325 mg tablet TAKE 1 TABLET BY MOUTH TWICE DAILY FOR 28 DAYS [facility] hydrocodone 7.5 mg-acetamin ophen 325 mg tablet TAKE 1 TABLET BY MOUTH TWICE A DAY hydrocodone 7.5 mg-acetamin ophen 325 mg tablet TAKE 1 TABLET BY MOUTH TWICE A DAY No hydrocodon e 7.5 mg-acetami nophen 325 mg tablet TAKE 1 TABLET BY MOUTH TWICE A DAY [facility] hydroxyzine HCl 25 mg tablet TAKE 1 TABLET BY MOUTH EVERY 8 HOURS NEEDED FOR ANXIETY hydroxyzine HCl 25 mg tablet TAKE 1 TABLET BY MOUTH EVERY 8 HOURS NEEDED FOR ANXIETY No hydroxyzin e HCl 25 mg tablet TAKE 1 TABLET BY MOUTH EVERY 8 HOURS NEEDED FOR ANXIETY [facility] ibuprofen 600 mg tablet TAKE 1 TABLET BY MOUTH THREE TIMES A DAY WITH FOOD OR MILK NEEDED ibuprofen 600 mg tablet TAKE 1 TABLET BY MOUTH THREE TIMES A DAY WITH FOOD OR MILK NEEDED No ibuprofen 600 mg tablet TAKE 1 TABLET BY MOUTH THREE TIMES A DAY WITH FOOD OR MILK NEEDED [facility] metoprolol tartrate 25 mg tablet TAKE 1 TABLET BY MOUTH TWICE A DAY WITH FOOD ORALLY TWICE A DAY metoprolol tartrate 25 mg tablet TAKE 1 TABLET BY MOUTH TWICE A DAY WITH FOOD ORALLY TWICE A DAY No metoprolol tartrate 25 mg tablet TAKE 1 TABLET BY MOUTH TWICE A DAY WITH FOOD ORALLY TWICE A DAY [facility] quetiapine 50 mg tablet TAKE ONE TABLET BY MOUTH AT BEDTIME FOR 90 DAYS quetiapine 50 mg tablet TAKE ONE TABLET BY MOUTH AT BEDTIME FOR 90 DAYS No quetiapine 50 mg tablet TAKE ONE TABLET BY MOUTH AT BEDTIME FOR 90 DAYS [facility] ropinirole 1 mg tablet TAKE 1 [...] 3 HOURS BEFORE BEDTIME FOR 90 DAYS [facility] trazodone 50 mg tablet TAKE 1 TABLET BY MOUTH EVERY DAY AT BEDTIME NEEDED trazodone 50 mg tablet TAKE 1 TABLET BY MOUTH EVERY DAY AT BEDTIME NEEDED No trazodone 50 mg tablet TAKE 1 TABLET BY MOUTH EVERY DAY AT BEDTIME NEEDED [facility] acetaminoph en 300 mg-codeine 30 mg tablet TAKE 1 TABLET BY MOUTH EVERY 8 HOURS acetaminoph en 300 mg-codeine 30 mg tablet TAKE 1 TABLET BY MOUTH EVERY 8 HOURS No acetaminop hen 300 mg-codeine 30 mg tablet TAKE 1 TABLET BY MOUTH EVERY 8 HOURS [facility] alprazolam 0.25 mg tablet TAKE 1 TABLET BY MOUTH TWICE A DAY alprazolam 0.25 mg tablet TAKE 1 TABLET BY MOUTH TWICE A DAY No alprazolam 0.25 mg tablet TAKE 1 TABLET BY MOUTH TWICE A DAY [facility] alprazolam 0.5 mg tablet TAKE 1 TABLET BY MOUTH TWICE A DAY alprazolam 0.5 mg tablet TAKE 1 TABLET BY MOUTH TWICE A DAY No alprazolam 0.5 mg tablet TAKE 1 TABLET BY MOUTH TWICE A DAY [facility] baclofen 20 mg tablet TAKE 1 TABLET BY MOUTH WITH FOOD OR MILK EVERY 8 HRS NEEDED baclofen 20 mg tablet TAKE 1 TABLET BY MOUTH WITH FOOD OR MILK EVERY 8 HRS NEEDED No baclofen 20 mg tablet TAKE 1 TABLET BY MOUTH WITH FOOD OR MILK EVERY 8 HRS NEEDED [facility] buspirone 5 mg tablet TAKE 1 TABLET BY MOUTH TWICE A DAY buspirone 5 mg tablet TAKE 1 TABLET BY MOUTH TWICE A DAY No buspirone 5 mg tablet TAKE 1 TABLET BY MOUTH TWICE A DAY [facility] cephalexin 500 mg capsule TAKE 1 CAPSULE BY MOUTH EVERY 6 HOURS FOR 10 DAYS FOR INFECTIOUS PROCEESS cephalexin 500 mg capsule TAKE 1 CAPSULE BY MOUTH EVERY 6 HOURS FOR 10 DAYS FOR INFECTIOUS PROCEESS No cephalexin 500 mg capsule TAKE 1 CAPSULE BY MOUTH EVERY 6 HOURS FOR 10 DAYS FOR INFECTIOUS PROCEESS [facility] clonazepam 0.5 mg tablet TAKE 1 TABLET BY MOUTH TWICE A DAY NEEDED FOR ANXIETY clonazepam 0.5 mg tablet TAKE 1 TABLET BY MOUTH TWICE A DAY NEEDED FOR ANXIETY No clonazepam 0.5 mg tablet TAKE 1 TABLET BY MOUTH TWICE A DAY NEEDED FOR ANXIETY [facility] cyclobenzap rine 5 mg tablet TAKE 1 TABLET BY MOUTH THREE TIMES DAILY NEEDED [facility] SPASMS cyclobenzap rine 5 mg tablet TAKE 1 TABLET BY MOUTH THREE TIMES DAILY NEEDED MUSCLE SPASMS No cyclobenza harleen 5 mg tablet TAKE 1 TABLET BY MOUTH THREE TIMES DAILY NEEDED MUSCLE SPASMS [facility] Eliquis 5 mg tablet TAKE 1 TABLET BY MOUTH TWICE A DAY Eliquis 5 mg tablet TAKE 1 TABLET BY MOUTH TWICE A DAY No Eliquis 5 mg tablet TAKE 1 TABLET BY MOUTH TWICE A DAY [facility] hydrocodone 10 mg-acetamin ophen 325 mg tablet TAKE 1 TABLET BY MOUTH TWICE A DAY NEEDED hydrocodone 10 mg-acetamin ophen 325 mg tablet TAKE 1 TABLET BY MOUTH TWICE A DAY NEEDED No hydrocodon e 10 mg-acetami nophen 325 mg tablet TAKE 1 TABLET BY MOUTH TWICE A DAY NEEDED [facility] hydrocodone 5 mg-acetamin ophen 325 mg tablet TAKE 1 TABLET BY MOUTH TWICE DAILY FOR 28 DAYS hydrocodone 5 mg-acetamin ophen 325 mg tablet TAKE 1 TABLET BY MOUTH TWICE DAILY FOR 28 DAYS No hydrocodon e 5 mg-acetami nophen 325 mg tablet TAKE 1 TABLET BY MOUTH TWICE DAILY FOR 28 DAYS [facility] hydrocodone 7.5 mg-acetamin ophen 325 mg tablet TAKE 1 TABLET BY MOUTH TWICE A DAY hydrocodone 7.5 mg-acetamin ophen 325 mg tablet TAKE 1 TABLET BY MOUTH TWICE A DAY No hydrocodon e 7.5 mg-acetami nophen 325 mg tablet TAKE 1 TABLET BY MOUTH TWICE A DAY [facility] hydroxyzine HCl 25 mg tablet TAKE 1 TABLET BY MOUTH EVERY 8 HOURS NEEDED FOR ANXIETY hydroxyzine HCl 25 mg tablet TAKE 1 TABLET BY MOUTH EVERY 8 HOURS NEEDED FOR ANXIETY No hydroxyzin e HCl 25 mg tablet TAKE 1 TABLET BY MOUTH EVERY 8 HOURS NEEDED FOR ANXIETY [facility] ibuprofen 600 mg tablet TAKE 1 TABLET BY MOUTH THREE TIMES A DAY WITH FOOD OR MILK NEEDED ibuprofen 600 mg tablet TAKE 1 TABLET BY MOUTH THREE TIMES A DAY WITH FOOD OR MILK NEEDED No ibuprofen 600 mg tablet TAKE 1 TABLET BY MOUTH THREE TIMES A DAY WITH FOOD OR MILK NEEDED [facility] metoprolol tartrate 25 mg tablet TAKE 1 TABLET BY MOUTH TWICE A DAY WITH FOOD ORALLY TWICE A DAY metoprolol tartrate 25 mg tablet TAKE 1 TABLET BY MOUTH TWICE A DAY WITH FOOD ORALLY TWICE A DAY No metoprolol tartrate 25 mg tablet TAKE 1 TABLET BY MOUTH TWICE A DAY WITH FOOD ORALLY TWICE A DAY [facility] quetiapine 50 mg tablet TAKE ONE TABLET BY MOUTH AT BEDTIME FOR 90 DAYS quetiapine 50 mg tablet TAKE ONE TABLET BY MOUTH AT BEDTIME FOR 90 DAYS No quetiapine 50 mg tablet TAKE ONE TABLET BY MOUTH AT BEDTIME FOR 90 DAYS [facility] ropinirole 1 mg tablet TAKE 1 [...] 3 HOURS BEFORE BEDTIME FOR 90 DAYS [facility] trazodone 50 mg tablet TAKE 1 TABLET BY MOUTH EVERY DAY AT BEDTIME NEEDED trazodone 50 mg tablet TAKE 1 TABLET BY MOUTH EVERY DAY AT BEDTIME NEEDED No trazodone 50 mg tablet TAKE 1 TABLET BY MOUTH EVERY DAY AT BEDTIME NEEDED [facility] Ibuprofen 600 MG Ibuprofen 600 MG 11-16 00:00 :00 No TID Ibuprofen 600 MG Immunizations Ordered Immunization Name Filled Immunization Name Date Status Comments Source Flucelvax - single dose syringe Flucelvax - single dose syringe 2022-05-22 10:57:00 Completed [facility] COVID-19 Vaccine (Meme) COVID-19 Vaccine (Meme) 2021-02-13 14:33:[address] [facility] COVID-19 Vaccine (Meme) COVID-19 Vaccine (Meme) 2021-02-13 14:33:[address] [facility] COVID-19 Vaccine (Meme) COVID-19 Vaccine (Meme) 2021-02-13 14:33:[address] [facility] COVID-19 Vaccine (Meme) COVID-19 Vaccine (Meme) Unknown Completed [facility] Flucelvax - single dose syringe Flucelvax - single dose syringe Unknown Completed [facility] COVID-19 Vaccine (Meme) COVID-19 Vaccine (Meme) Unknown Completed [facility] Flucelvax - single dose syringe Flucelvax - single dose syringe Unknown Completed [facility] COVID-19 Vaccine (Meme) COVID-19 Vaccine (Meme) Unknown Completed [facility] Flucelvax - single dose syringe Flucelvax - single dose syringe Unknown Completed [facility] COVID-19 Vaccine (Meme) COVID-19 Vaccine (Meme) Unknown Completed [facility] Flucelvax (ccIIV4) - SDS - 0.5mL Flucelvax (ccIIV4) - SDS - 0.5mL Unknown Completed [facility] COVID-19 Vaccine (Meme) COVID-19 Vaccine (Meme) Unknown Completed [facility] Flucelvax (ccIIV4) - SDS - 0.5mL Flucelvax (ccIIV4) - SDS - 0.5mL Unknown Completed [facility] COVID-19 Vaccine (Meme) COVID-19 Vaccine (Meme) Unknown Completed [facility] Flucelvax (ccIIV4) - SDS - 0.5mL Flucelvax (ccIIV4) - SDS - 0.5mL Unknown Completed [facility] COVID-19 Vaccine (Meme) COVID-19 Vaccine (Meme) Unknown Completed [facility] Flucelvax (ccIIV4) - SDS - 0.5mL Flucelvax (ccIIV4) - SDS - 0.5mL Unknown Completed [facility] COVID-19 Vaccine (Meme) COVID-19 Vaccine (Meme) Unknown Completed [facility] Flucelvax (ccIIV4) - SDS - 0.5mL Flucelvax (ccIIV4) - SDS - 0.5mL Unknown Completed [facility] COVID-19 Vaccine (Meme) COVID-19 Vaccine (Meme) Unknown Completed [facility] Flucelvax (ccIIV4) - SDS - 0.5mL Flucelvax (ccIIV4) - SDS - 0.5mL Unknown Completed [facility] Fluarix (IIV3) - SDS - 0.5mL Fluarix (IIV3) - SDS - 0.5mL Unknown Completed [facility] Vital Signs Vital Name Observation Time Observation Value Comments S ource height 2024-07-22 08:40:00 72 [in_i] Commo n [facility] weight 2024-07-22 08:40:00 204.2 [lb_av] Co mmon [facility] temperature 2024-07-22 08:40:00 97.4 [degF] Com mon [facility] bmi 2024-07-22 08:40:00 27.69 kg/m2 Comm on [facility] oximetry 2024-07-22 08:40:00 96 % Commo n [facility] respiratory rate 2024-07-22 08:40:00 16 /min [facility] blood pressure systolic 2024-07-22 08:40:00 126 mm[Hg] [facility] blood pressure diastolic 2024-07-22 08:40:00 86 mm[Hg] [facility] height 2024-03-24 10:20:00 72 [in_i] Commo n [facility] weight 2024-03-24 10:20:00 199.0 [lb_av] Co mmon [facility] temperature 2024-03-24 10:20:00 97.9 [degF] Com [facility] bmi 2024-03-24 10:20:00 26.99 kg/m2 Comm on [facility] oximetry 2024-03-24 10:20:00 96 % Commo n [facility] respiratory rate 2024-03-24 10:20:00 18 /min [facility] blood pressure systolic 2024-03-24 10:20:00 109 mm[Hg] [facility] diastolic 2024-03-24 10:20:00 87 mm[Hg] [facility] height 2023-12-23 08:20:00 72 [in_i] Commo n [facility] weight 2023-12-23 08:20:00 210.6 [lb_av] Co mmon [facility] temperature 2023-12-23 08:20:00 98.0 [degF] Com [facility] bmi 2023-12-23 08:20:00 28.56 kg/m2 Comm on [facility] oximetry 2023-12-23 08:20:00 95 % Commo n [facility] respiratory rate 2023-12-23 08:20:00 18 /min [facility] blood pressure systolic 2023-12-23 08:20:00 120 mm[Hg] [facility] blood pressure diastolic 2023-12-23 08:20:00 83 mm[Hg] [facility] height 2023-08-27 14:20:00 72 [in_i] Commo n [facility] weight 2023-08-27 14:20:00 204.2 [lb_av] Co mmon [facility] temperature 2023-08-27 14:20:00 97.2 [degF] Com [facility] bmi 2023-08-27 14:20:00 27.69 kg/m2 Comm on [facility] oximetry 2023-08-27 14:20:00 95 % Commo n [facility] respiratory rate 2023-08-27 14:20:00 15 /min [facility] blood pressure systolic 2023-08-27 14:20:00 113 mm[Hg] [facility] blood pressure diastolic 2023-08-27 14:20:00 72 mm[Hg] [facility] height 2023-05-28 10:00:00 72 [in_i] Commo n [facility] weight 2023-05-28 10:00:00 203.2 [facility]lb[facility]av[facility]23-[facility]-28 10:00:00 97.2 [degF] Com [facility] bmi 2023-05-28 10:00:00 27.56 kg/m2 Comm on [facility] oximetry 2023-05-28 10:00:00 98 % Commo n [facility] respiratory rate 2023-05-28 10:00:00 15 /min [facility] blood pressure systolic 2023-05-28 10:00:00 106 mm[Hg] [facility] blood pressure diastolic 2023-05-28 10:00:00 85 mm[Hg] [facility] height 2023-02-20 10:40:00 72 [in_i] Commo n [facility] weight 2023-02-20 10:40:00 201.0 [lb_av] Co [facility] temperature 2023-02-20 10:40:00 98.8 [degF] Com [facility] bmi 2023-02-20 10:40:00 27.26 kg/m2 Comm on [facility] oximetry 2023-02-20 10:40:00 95 % Commo n [facility] respiratory rate 2023-02-20 10:40:00 16 /min [facility] blood pressure systolic 2023-02-20 10:40:00 134 mm[Hg] [facility] blood pressure diastolic 2023-02-20 10:40:00 89 mm[Hg] [facility] height 2022-11-20 11:40:00 72 [in_i] Commo n [facility] weight 2022-11-20 11:40:00 204.6 [lb_av] Co mmon [facility] temperature 2022-11-20 11:40:00 97.3 [degF] Com [facility] bmi 2022-11-20 11:40:00 27.75 kg/m2 Comm on [facility] oximetry 2022-11-20 11:40:00 96 % Commo n [facility] respiratory rate 2022-11-20 11:40:00 16 /min [facility] blood pressure systolic 2022-11-20 11:40:00 133 mm[Hg] [facility] blood pressure diastolic 2022-11-20 11:40:00 95 mm[Hg] Common [facility] height 2022-08-20 14:00:00 72 [in_i] Commo n [facility] weight 2022-08-20 14:00:00 201.8 [lb_av] Co mmon [facility] temperature 2022-08-20 14:00:00 98.2 [degF] Com mon [facility] bmi 2022-08-20 14:00:00 27.37 kg/m2 Comm on [facility] oximetry 2022-08-20 14:00:00 96 % Commo n [facility] respiratory rate 2022-08-20 14:00:00 16 /min [facility] blood pressure systolic 2022-08-20 14:00:00 130 mm[Hg] [facility] blood pressure diastolic 2022-08-20 14:00:00 84 mm[Hg] [facility] height 2022-05-22 10:40:00 72 [in_i] Commo n [facility] weight 2022-05-22 10:40:00 198.6 [lb_av] Co mmon [facility] temperature 2022-05-22 10:40:00 97.0 [degF] Com mon [facility] bmi 2022-05-22 10:40:00 26.93 kg/m2 Comm on [facility] oximetry 2022-05-22 10:40:00 97 % Commo n [facility] respiratory rate 2022-05-22 10:40:00 17 /min [facility] blood pressure systolic 2022-05-22 10:40:00 126 mm[Hg] [facility] blood pressure diastolic 2022-05-22 10:40:00 86 mm[Hg] [facility] height 2022-02-20 10:40:00 72 [in_i] Commo n [facility] weight 2022-02-20 10:40:00 192 [lb_av] Comm on [facility] temperature 2022-02-20 10:40:00 97.4 [degF] Com mon [facility] bmi 2022-02-20 10:40:00 26.04 kg/m2 Comm on [facility] oximetry 2022-02-20 10:40:00 96 % Commo n [facility] respiratory rate 2022-02-20 10:40:00 19 /min [facility] blood pressure systolic 2022-02-20 10:40:00 113 mm[Hg] [facility] blood pressure diastolic 2022-02-20 10:40:00 62 mm[Hg] Common [facility] height 2022-01-23 14:30:00 72 [in_i] Commo n [facility] weight 2022-01-23 14:30:00 189.3 [lb_av] Co mmon [facility] temperature 2022-01-23 14:30:00 97.9 [degF] Com mon [facility] bmi 2022-01-23 14:30:00 25.67 kg/m2 Comm on [facility] blood pressure systolic 2022-01-23 14:30:00 128 mm[Hg] [facility] blood pressure diastolic 2022-01-23 14:30:00 74 mm[Hg] Common [facility] height 2021-11-21 11:40:00 72 [in_i] Commo n [facility] weight 2021-11-21 11:40:00 195 [lb_av] Comm on [facility] temperature 2021-11-21 11:40:00 98.3 [degF] Com mon [facility] bmi 2021-11-21 11:40:00 26.44 kg/m2 Comm on [facility] oximetry 2021-11-21 11:40:00 97 % Commo n [facility] respiratory rate 2021-11-21 11:40:00 16 /min [facility] blood pressure systolic 2021-11-21 11:40:00 104 mm[Hg] [facility] blood pressure diastolic 2021-11-21 11:40:00 54 mm[Hg] [facility] BP Diastolic 2021-09-17 00:00:00 69 mm[Hg] [facility] Height 2021-09-17 00:00:00 72 [in_i] [facility] BMI (Body Mass Index) 2021-09-17 00:00:00 27.1 kg/m2 [facility] BP Systolic 2021-09-17 00:00:00 130 mm[Hg] [facility] Body Weight 2021-09-17 00:00:00 3200 [oz_av] [facility] BP Diastolic 2021-09-12 00:00:00 75 mm[Hg] [facility] Height 2021-09-12 00:00:00 72 [in_i] [facility] BMI (Body Mass Index) 2021-09-12 00:00:00 27.1 kg/m2 [facility] BP Systolic 2021-09-12 00:00:00 141 mm[Hg] [facility] Body Weight 2021-09-12 00:00:00 3200 [oz_av] [facility] height 2021-09-06 13:20:00 72 [in_i] [facility] [facility] weight 2021-09-06 13:20:00 196.2 [lb_av] Co mmon [facility] temperature 2021-09-06 13:20:00 98.7 [degF] Com mon [facility] bmi 2021-09-06 13:20:00 26.61 kg/m2 Comm on [facility] oximetry 2021-09-06 13:20:00 97 % Commo n [facility] respiratory rate 2021-09-06 13:20:00 16 /min Common [facility] height 2021-08-21 11:00:00 72 [in_i] Commo n [facility] weight 2021-08-21 11:00:00 195 [lb_av] Comm on [facility] temperature 2021-08-21 11:00:00 97.9 [degF] Com mon [facility] bmi 2021-08-21 11:00:00 26.44 kg/m2 Comm on [facility] oximetry 2021-08-21 11:00:00 99 % Commo n [facility] respiratory rate 2021-08-21 11:00:00 16 /min [facility] blood pressure systolic 2021-08-21 11:00:00 138 mm[Hg] [facility] blood pressure diastolic 2021-08-21 11:00:00 71 mm[Hg] [facility] height 2021-05-20 10:40:00 72 [in_i] Commo n [facility] weight 2021-05-20 10:40:00 199 [lb_av] Comm on [facility] temperature 2021-05-20 10:40:00 97.8 [degF] Com mon [facility] bmi 2021-05-20 10:40:00 26.99 kg/m2 Comm on [facility] oximetry 2021-05-20 10:40:00 97 % Commo n [facility] respiratory rate 2021-05-20 10:40:00 16 /min [facility] blood pressure systolic 2021-05-20 10:40:00 136 mm[Hg] [facility] blood pressure diastolic 2021-05-20 10:40:00 72 mm[Hg] [facility] Encounters Start Date/Time End Date/Time Encounter Type Admission Type Attending [facility] Facility Care Department Encounter ID Source 2023-12-21 09:54:00 [facility] [id number] [facility] 2022-05-22 07:15:00 [facility] [id number] [facility] 2022-02-18 13:42:01 Outpatient Lucie Becerra [facility] [id number] [facility] 2021-11-21 16:06:01 [facility] [id number] [facility] 2021-11-11 10:25:02 [facility] [id number] [facility] 2021-09-09 11:52:01 Outpatient RiponLucie veliz [facility] [id number] [facility] 2021-09-04 09:26:02 Outpatient Lucie Becerra [facility]ML[facility]C [id number] [facility] 2021-08-16 14:50:01 Outpatient RiponLucie veliz [facility]LMLC STL[facility]C [id number] [facility] 2021-07-17 13:43:09 Outpatient RiponLucie veliz [facility]LMLC ST[facility]C [id number] [facility] 2021-07-17 12:54:53 Outpatient Lucie Becerra [facility] ST[facility] [id number] [facility] 2021-07-17 12:42:31 Outpatient Lucie Becerra [facility] [id number] [facility] 2021-07-17 12:36:42 Outpatient Lucie Becerra [facility]LML[facility] [id number] [facility] 2024-09-21 00:00:00 2024-09-21 00:00:00 (TEL) [facility]LMLC [facility]LMLC [id number] [facility] 2024-09-08 00:00:00 2024-09-08 00:00:00 (TEL) [facility]LMLC STLMLC [id number] [facility] 2024-09-06 00:00:00 2024-09-06 00:00:00 (TEL) [facility]LMLC [facility]C [id number] [facility] 2024-07-22 00:00:00 2024-07-22 00:00:00 OFFICE VISIT ESTAB PT LEVEL [id number] [facility] 2024-07-20 00:00:00 2024-07-20 00:00:00 (TEL) [facility]LMLC [facility]LMLC [id number] [facility] 2024-05-17 00:00:00 2024-05-17 00:00:00 (TEL) [facility]LMLC [facility]LMLC [id number] [facility] 2024-05-16 00:00:00 2024-05-16 00:00:00 (TEL) [facility]LMLC STLMLC [id number] [facility] 2024-04-19 00:00:00 2024-04-19 00:00:00 (TEL) [facility]LMLC STLMLC [id number] [facility] 2024-03-24 00:00:00 2024-03-24 00:00:00 OFFICE VISIT ESTAB PT LEVEL [id number] [facility] 2023-12-23 00:00:00 2023-12-23 00:00:00 OFFICE VISIT ESTAB PT LEVEL [id number] [facility] 2023-12-02 00:00:00 2023-12-02 00:00:00 (TEL) [facility]LMLC STLMLC [id number] [facility] 2023-09-08 00:00:00 2023-09-08 00:00:00 (TEL) STLMLC STLMLC [id number] [facility] 2023-08-27 00:00:00 2023-08-27 00:00:00 OFFICE VISIT ESTAB PT LEVEL [id number] [facility] 2023-08-06 00:00:00 2023-08-06 00:00:00 (TEL) STLMLC STLMLC [id number] [facility] 2023-05-28 00:00:00 2023-05-28 00:00:00 OFFICE VISIT ESTAB PT LEVEL [id number] [facility] 2023-02-20 00:00:00 2023-02-20 00:00:00 OFFICE VISIT ESTAB PT LEVEL [id number] [facility] 2022-12-15 00:00:00 2022-12-15 00:00:00 (TEL) STLMLC STLMLC [id number] [facility] 2022-11-20 00:00:00 2022-11-20 00:00:00 OFFICE VISIT ESTAB PT LEVEL [id number] [facility] 2022-08-20 00:00:00 2022-08-20 00:00:00 OFFICE VISIT ESTAB PT LEVEL [id number] [facility] 2022-05-22 00:00:00 2022-05-22 00:00:00 OFFICE VISIT EST PT LEVEL [id number] [facility] 2022-02-20 00:00:00 2022-02-20 00:00:00 OFFICE VISIT EST PT LEVEL [id number] [facility] 2022-01-23 00:00:00 2022-01-23 00:00:00 OFFICE VISIT NEW PT LEVEL [id number] [facility] 2022-01-15 00:00:00 2022-01-15 00:00:00 Outpatient DEBBIE BALDWIN [id number] [facility] 2021-11-21 00:00:00 2021-11-21 00:00:00 OFFICE VISIT ESTAB PT LEVEL [id number] [facility] 2021-11-07 00:00:00 2021-11-07 00:00:00 (TEL) STLMLC STLMLC [id number] [facility] 2021-11-05 00:00:00 2021-11-05 00:00:00 (TEL) STLMLC STLMLC [id number] [facility] 2021-09-26 05:38:00 2021-09-26 05:38:00 Outpatient LUBA[facility]Pedrito [facility] [id number] [facility] 2021-09-24 09:08:00 2021-09-24 09:08:00 Outpatient KOVACEV_T [facility] [id number] 2021-09-17 09:33:00 2021-09-17 09:33:00 Outpatient [id number] 2021-09-17 00:00:00 2021-09-17 00:00:00 Outpatient Lance Varela [facility] [id number] 2021-09-17 00:00:00 2021-09-17 00:00:00 Lance Varela MD: [place] [address] , Ph. [facility] [id number] [facility] 2021-09-12 12:58:00 2021-09-12 12:58:00 Outpatient [facility] [id number] [facility] 2021-09-12 00:00:00 2021-09-12 00:00:00 Lance Varela MD: [place] [address] , Ph. [facility] [id number] [facility] 2021-09-12 00:00:00 2021-09-12 00:00:00 [facility] [id number] 2021-09-06 00:00:00 2021-09-06 00:00:00 [facility] [id number] 2021-08-21 00:00:00 2021-08-21 00:00:00 OFFICE VISIT ESTAB PT LEVEL [id number] [facility] 2021-05-21 00:00:00 2021-05-21 00:00:00 OFFICE VISIT ESTAB PT LEVEL [id number] [facility] 2021-05-20 00:00:00 2021-05-20 00:00:00 OFFICE VISIT ESTAB PT LEVEL [id number] [facility] 2021-05-20 00:00:00 2021-05-20 00:00:00 (TEL) STLMLC STLMLC [id number] [facility] 2021-02-13 00:00:00 2021-02-13 00:00:00 Outpatient [facility]MLC [facility]LMLC [id number] [facility] 2020-12-20 00:00:00 2020-12-20 00:00:00 Out[address] [facility] [id number] [facility] 2020-10-25 00:00:00 2020-10-25 00:00:00 Outpatient [facility] [id number] [facility] 2020-10-24 00:00:00 2020-10-24 00:00:00 Outpatient [facility] [id number] [facility] 2020-10-10 00:00:00 2020-10-10 00:00:00 Outpatient [facility]C [facility] [id number] [facility] 2020-10-09 00:00:00 2020-10-09 00:00:00 Out[address] [facility] [id number] [facility] 2020-09-10 04:49:00 2020-09-10 04:49:00 Outpatient [facility] [id number] [facility] 2020-09-03 00:00:00 2020-09-03 00:00:00 Out[address] [facility]C [facility]C [id number] [facility] 2020-08-24 00:00:00 2020-08-24 [facility] [id number]
--- NOTE | 2024-09-23 14:42 | RAD REPORT ---
EXAM: Foot Left 3 View HISTORY: crush injury COMPARISON: None FINDINGS: Bones: No acute fracture identified. Alignment:No significant malalignment. Degenerative changes:Mild degenerative changes are present the first MTP joint. Other: n/a IMPRESSION: No acute osseous abnormality.
[2024-09-23 15:14] LABS: Absolute Eosinophils 0.2 K/uL (0-0.5); Absolute Lymphocytes (CBC) 1.9 K/uL (0.7-4.9); Absolute Monocytes 0.3 K/uL (0.1-1.3); Absolute Neutrophil 1.8 K/uL (1.8-8.0); Basophils % 0.7 % (0-1.3); Eosinophils % 3.7 % (0-4.4); Hematocrit 40.4 % (39.6-49.0); Hemoglobin 14.2 g/dL (13.6-17.9); Lymphocytes % 45.2 % (15.3-44.8); MCH 36.4 pg (27.0-35.0); MCHC 35.1 g/dL (32.0-36.0); MCV 103.8 fL (80-100); MPV 9.1 fL (7.6-11.3); Neutrophils % 43.4 % (41.7-73.7); Nucleated Red Blood Cells % 0.2 % (0-0); Platelets 67 thou/uL (152-406); RBC Red Blood Cell Count 3.89 M/uL (4.33-5.43); Red Cell Distribution Width 16.1 % (12.1-15.2)
[2024-09-23 15:15] LABS: PT Prothrombin Time 24.2 SECONDS (10-13.0); PTT, Activated Partial Thromb 38.1 SECONDS (27.2-37.4); Protime INR 2.2
[2024-09-23 15:16] LABS: Blood Morphology Comment NOT SEEN (NOT SEEN); Platelet Estimate DECR; White Blood Cell Scan OK (OK)
--- NOTE | 2024-09-23 15:28 | RAD REPORT ---
Extremity Venous Uni Ltd CLINICAL INDICATION: Male, 64 years old.Pain;Swelling TECHNIQUE: Complete duplex sonography of the lower extremity veins was performed of the affected limb . The examination included compression for vein patency, color Doppler imaging and flow augmentation in response to distal compression of the distal external iliac, common femoral, femoral, popliteal, peroneal, tibial and great saphenous veins. [id number]. COMPARISON: No prior exams FINDINGS: Duplex sonography imaging demonstrates all deep veins examined to be fully compressible with spontane ous, phasic and augmented flow in the affected limb. IMPRESSION: No evidence of deep venous thrombosis in the left lower extremity.
--- NOTE | 2024-09-23 15:32 | RAD REPORT ---
EXAM: Lower Extremity Artery Uni Ltd HISTORY: PAIN COMPARISON: None TECHNIQUE: Multiplanar grayscale and color Doppler images were obtained and a left lower extremity ar terial ultrasound. Spectral analysis of the Doppler waveforms were performed. FINDINGS: No significant calcified plaque is seen in the left lower extremity. Left lower extremity: Common femoral artery: Triphasic Superficial femoral artery: Triphasic Popliteal artery: Triphasic Posterior tibial artery: Triphasic Dorsalis pedis artery: Triphasic IMPRESSION: No significant arterial abnormality of the extremities.
[2024-09-23] MEDS ORDERED: FENTANYL CITR 100 MCG/2 ML ONE (16:34)
[2024-09-23] MEDS ORDERED: CLINDAMYCIN 900MG/D5W 900 MG/50 ML IVPB IV ONE (16:35)
[2024-09-23 16:41] LABS: Anion Gap 7.5 mEq/L (5.0-15.0); Potassium 3.5 mEq/L (3.5-5.1)
[2024-09-23] MEDS ORDERED: NA CHLORIDE 0.9% 250 ML ONE (17:22)
--- NOTE | 2024-09-23 18:13 | ER ---
Nurse's Notes [facility] Name: Joe Ricks Age: 64 yrs Sex: Male : 1960 Arrival Date: 09/23/2024 Time: 13:23 Bed 16 Private MD: Diagnosis: Chronic atrial fibrillation;Cellulitis of right lower limb-foot;Crushing injury of foot-right Presentation: 09/23 13:35 Chief complaint: Patient states: he had a trailer fall on his left foot "and bout near ap3 cut my pinky toe off about five days ago and plus it hurts!". patient states he has not been evaluated for the wound yet. patient currently rates his pain as a 9/10 on the pain scale. Coronavirus screen: At this time, the client does not indicate any symptoms associated with coronavirus-19. Ebola Screen: No symptoms or risks identified at this time. Initial Sepsis Screen: Does the patient meet any 2 criteria? No. Patient's initial sepsis screen is negative. Does the patient have a suspected source of infection? No. Patient's initial sepsis screen is negative. Risk Assessment: Do you want to hurt yourself or someone else? Patient reports no desire to harm self or others. Onset of symptoms is unknown. 13:35 Method Of Arrival: Ambulatory ap3 13:35 Acuity: RODNEY 3 ap3 Triage Assessment: 13:39 General: Appears in no apparent distress. Behavior is calm, cooperative, appropriate ap3 for age. Pain: Complains of pain in left foot Pain currently is 9 out of 10 on a pain scale. Neuro: Level of Consciousness is awake, alert, obeys commands, Oriented to person, place, time, situation. Cardiovascular: Patient's skin is warm and dry. Respiratory: Airway is patent Respiratory effort is even, unlabored, Respiratory pattern is regular, symmetrical. Derm: Wound noted left foot. 13:53 Derm: Bruising that is dark purple, on dorsum of left foot, left second toe, left third ap3 toe, left fourth toe and left fifth toe. Historical: - Allergies: 13:38 No Known Allergies; ap3 - PMHx: 13:38 Anxiety; Atrial fibrillation; Broken Neck; palpitations; restless leg syndrome; right ap3 hear loss; - PSHx: 13:38 3 plates in skull; cardioversion; ap3 - Immunization history:: Client reports receiving the 2nd dose of the Covid vaccine, Flu vaccine is up to date. - Infectious Disease History:: Denies. - Social history:: Smoking status: Patient reports the use of cigarette tobacco products, smokes one-half pack cigarettes per day. Screenin:39 Abuse screen: Denies threats or abuse. Nutritional screening: No deficits noted. ap3 Tuberculosis screening: No symptoms or risk factors identified. 18:28 [facility] ED Fall Risk Assessment (Adult) History of falling in the last 3 months, db including since admission No falls in past 3 months (0 pts) Confusion or Disorientation No (0 pts) Intoxicated or Sedated No (0 pts) Impaired Gait No (0 pts) Mobility Assist Device Used No (0 pt) Altered Elimination No (0 pt) Score/Fall Risk Level 0 - 2 = Low Risk Oriented to surroundings, Maintained a safe environment. Assessment: 16:00 Reassessment: Patient appears in no apparent distress at this time. Patient and/or db family updated on plan of care and expected duration. Pain level reassessed. Patient is alert, oriented x 3, equal unlabored respirations, skin warm/dry/pink. General: Appears in no apparent distress. comfortable, Behavior is calm, cooperative. Respiratory: Airway is patent Respiratory effort is even, unlabored, Respiratory pattern is regular, symmetrical. 16:30 Reassessment: PATIENT AMBULATORY TO RESTROOM. db 17:00 Reassessment: Patient appears in no apparent distress at this time. Patient and/or db family updated on plan of care and expected duration. Pain level reassessed. Patient is alert, oriented x 3, equal unlabored respirations, skin warm/dry/pink. General: Appears in no apparent distress. comfortable, Behavior is calm, cooperative. Neuro: Level of Consciousness is awake, alert, obeys commands, Oriented to person, place, time, situation. Derm: Skin is TOES ARE RED AND PURPLE IN COLOR Wound noted left foot. 17:35 Reassessment: PT REPORTS WANTS TO LEAVE. DOES NOT WANT TO STAY. NOTIFIED PROVIDER. db 18:15 Reassessment: PT REPORTS WANTS TO LEAVE. DOES NOT WANT TO STAU. db 18:27 Reassessment: Patient appears in no apparent distress at this time. Patient and/or db family updated on plan of care and expected duration. Pain level reassessed. Patient is alert, oriented x 3, equal unlabored respirations, skin warm/dry/pink. Vital Signs: 13:35 BP 121 / 94; Pulse 77; Resp 17; Temp 98.4; Pulse Ox 96% ; Weight 90.72 kg; Pain 9/10; ap3 17:00 BP 124 / 95 (/reg); Pulse 143; Resp 18; Pulse Ox 98% on R/A; db 18:00 BP 101 / 90; Pulse 135; Resp 18; Pulse Ox 96% ; db 13:35 Pain Scale: Adult ap3 17:00 NOTIFIED PROVIDER PAGE OF PATIENT HR. db Vitals: 17:35 Cardiac Rhythm Assessment Atrial fibrillation. db ED Course: 13:23 Patient arrived in ED. mr 13:25 Yosef Coleman PA is PHCP. cp 13:25 Will Mcknight MD is Attending Physician. cp 13:38 Triage completed. ap3 13:39 Arm band placed on right wrist. ap3 14:27 XRAY Foot LEFT 3 View In Process Unspecified. EDMS 14:48 Isadora Hand, RN is Primary Nurse. db 15:19 US Extremity Venous Unilateral Ltd In Process Unspecified. EDMS 15:19 US Lower Extremity Artery Uni Ltd In Process Unspecified. EDMS 15:54 Lab(s) recollected, by me, sent to lab. Inserted saline lock: 20 gauge in right em1 forearm, using aseptic technique. Blood collected. Flushed with 10 mL NS. 17:34 Patient has correct armband on for positive identification. Bed in low position. Call db light in reach. Side rails up X 1. Client placed on continuous cardiac and pulse oximetry monitoring. NIBP monitoring applied. site monitor on. Pulse ox on. NIBP on. Pillow given. 18:28 Provided Education on: DISCHARGE. db 18:28 No provider procedures requiring assistance completed. IV discontinued, intact, db bleeding controlled, No redness/swelling at site. Administered Medications: 16:40 Drug: fentaNYL (PF) IVP 50 mcg IVP once Route: IVP; Site: right forearm; db 17:27 Follow up: Response: Pain is decreased db 17:15 Drug: Clindamycin IVPB 900 mg IVPB once over 30 mins; (mix in 50 mL) Route: IVPB; db Infused Over: 30 mins; Site: right forearm; 17:50 Follow up: IV Status: Completed infusion; IV Intake: 50ml db 17:26 Drug: NS 0.9% IV 250 ml IV at calculated rate once; to be given as a bolus over 30 db minutes Route: IV; Rate: calculated rate; Site: right forearm; 18:30 Follow up: Response: No adverse reaction; IV Status: Completed infusion; IV Intake: db 250ml Medication: 18:28 VIS not applicable for this client. db Intake: 17:50 IV: 50ml; Total: 50ml. db 18:30 IV: 250ml; Total: 300ml. db Outcome: 18:12 Discharge ordered by MD. cp 18:28 Discharged to home ambulatory, with family, db 18:28 Condition: stable 18:28 Discharge instructions given to patient, family, Instructed on discharge instructions, follow up and referral plans. Prescriptions given X 2, 18:30 Patient left the ED. db Signatures: Dispatcher [employer] EDMS RobbAidee, Reg Reg mr Briceno Thang em1 Yosef Coleman PA PA Qian Byrd RN RN ap3 Isadora Hand, CHELSEA RN db Corrections: (The following items were deleted from the chart) 17:33 17:00 BP 124 / 95 Regular; Pulse 143bpm; Resp 18bpm; Pulse Ox 98% RA; db db
--- NOTE | 2024-09-23 18:13 | EDPHYS ---
Physician Documentation [facility] Name: Joe Ricks Age: 64 yrs Sex: Male : 1960 Arrival Date: 09/23/2024 Time: 13:23 Bed 16 Private MD: ED Physician Will Mcknight HPI: 09/23 13:55 This 64 yrs old Male presents to ER via Ambulatory with complaints of Wound Infection. cp 13:55 The patient presents with a crush injury, trailer. The complaints affect the left foot. cp 13:55 Context: the patient can fully bear weight, the patient is able to ambulate, with cp moderate difficulty. Onset: The symptoms/episode began/occurred 5 day(s) ago. Associated signs and symptoms: Pertinent positives: swelling, warmth, erythema, Pertinent negatives: fever. Severity of symptoms: in the emergency department the symptoms are unchanged, despite home interventions. Historical: - Allergies: 13:38 No Known Allergies; ap3 - PMHx: 13:38 Anxiety; Atrial fibrillation; Broken Neck; palpitations; restless leg syndrome; right ap3 hear loss; - PSHx: 13:38 3 plates in skull; cardioversion; ap3 - Immunization history:: Client reports receiving the 2nd dose of the Covid vaccine, Flu vaccine is up to date. - Infectious Disease History:: Denies. - Social history:: Smoking status: Patient reports the use of cigarette tobacco products, smokes one-half pack cigarettes per day. ROS: 14:00 MS/extremity: Positive for ecchymosis, pain, swelling, tenderness, of the left foot, cp 14:00 Eyes: Negative for injury, pain, redness, and discharge, cp 14:00 Constitutional: Negative for fever, poor PO intake, 14:00 Cardiovascular: Negative for chest pain, 14:00 Respiratory: Negative for cough, shortness of breath, wheezing, 14:00 Abdomen/GI: Negative for abdominal pain, vomiting, diarrhea, constipation, 14:00 Back: Negative for pain at rest, pain with movement, 14:00 Neuro: Negative for altered mental status, headache, 14:00 All other systems are negative, cp Exam: 14:05 Constitutional: The patient appears in no acute distress, alert, awake, cp non-diaphoretic, non-toxic, well developed, well nourished, 14:05 Head/Face: Normocephalic, atraumatic. cp 14:05 Eyes: Periorbital structures: appear normal, Conjunctiva: normal, no exudate, no cp injection, Sclera: no appreciated abnormality, Lids and lashes: appear normal, bilaterally, 14:05 ENT: External ear(s): are unremarkable, Nose: is normal, Mouth: Lips: moist, Oral mucosa: moist, Posterior pharynx: Airway: no evidence of obstruction, patent, 14:05 Chest/axilla: Inspection: normal, 14:05 Cardiovascular: Rate: normal, Rhythm: irregular, Edema: is not appreciated, ankle edema, that is moderate, JVD: is not appreciated, 14:05 Respiratory: the patient does not display signs of respiratory distress, Respirations: normal, no use of accessory muscles, no retractions, labored breathing, is not present, Breath sounds: are clear throughout, no decreased breath sounds, no stridor, no wheezing, 14:05 Abdomen/GI: Exam negative for discomfort, distension, guarding, Inspection: abdomen appears normal, 14:05 Musculoskeletal/extremity: Extremities: noted in the left foot: ecchymosis, erythema, swelling, tenderness, open wound lateral dorsal side with mild purulent drainage, 14:05 Neuro: Orientation: to person, place \T\ time. Mentation: is normal, 18:11 ECG was reviewed by the Attending Physician. Vital Signs: 13:35 BP 121 / 94; Pulse 77; Resp 17; Temp 98.4; Pulse Ox 96% ; Weight 90.72 kg; Pain 9/10; ap3 17:00 BP 124 / 95 (/reg); Pulse 143; Resp 18; Pulse Ox 98% on R/A; db 18:00 BP 101 / 90; Pulse 135; Resp 18; Pulse Ox 96% ; db 13:35 Pain Scale: Adult ap3 17:00 NOTIFIED PROVIDER PAGE OF PATIENT HR. db MDM: 13:46 Medical Screening Exam initiated cp 15:00 Differential diagnosis: cellulitis, abscess, osteomyelitis, fracture, sepsis. cp 16:55 Data reviewed: vital signs, nurses notes, lab test result(s), radiologic studies, cp ultrasound. 16:55 Refusal of service: The patient/guardian displays adequate decision making capability and despite a detailed discussion of alternatives, benefits, risks, and consequences refuses: Admission to the hospital for further work-up and treatment. 09/24 18:00 I considered the following discharge prescriptions or medication management in the emergency department Medications were administered in the Emergency Department. See MAR. Independent interpretation of the following test(s) in the Emergency Department EKG: See my EKG interpretation above. Care significantly affected by the following chronic conditions: a-fib. Counseling: I had a detailed discussion with the patient and/or guardian regarding the historical points, exam findings, and any diagnostic results supporting the discharge/admit diagnosis, lab results, radiology results, the need for further work-up and treatment in the hospital. 09/23 13:50 Order name: Wound Culture 09/23 13:50 Order name: Lactate w/ 2H reflex if indic.; Complete Time: 15:36 09/23 15:37 Interpretation: Reviewed. 09/23 13:50 Order name: CBC with Diff; Complete Time: 15:36 09/23 15:36 Interpretation: Normal except: WBC 4.20; RBC 3.89; MCV 103.8; MCH 36.4; PLT 67; RDW cp 16.1; LYM% 45.2. 09/23 13:50 Order name: BMP; Complete Time: 16:49 09/23 16:49 Interpretation: Normal except: NA 135. 09/23 13:50 Order name: PT-INR; Complete Time: 15:36 09/23 13:50 Order name: Ptt, Activated; Complete Time: 15:36 09/23 15:16 Order name: CBC Smear Scan; Complete Time: 15:36 EDAK 09/23 15:34 Order name: Ghost Lactate-NO COLLECT Timer EDAK 09/23 15:56 Order name: Blood Culture Adult (2) cp 09/23 13:50 Order name: US Extremity Venous Unilateral Ltd; Complete Time: 15:36 cp 09/23 13:50 Order name: US Lower Extremity Artery Uni Ltd; Complete Time: 15:36 cp 09/23 13:50 Order name: XRAY Foot LEFT 3 View; Complete Time: 15:11 cp 09/23 15:11 Interpretation: Reviewed report. 09/23 17:40 Order name: EKG; Complete Time: 17:40 cp 09/23 13:50 Order name: IV; Complete Time: 15:54 cp 09/23 15:11 Order name: Labs - recollect needed: RECOLLECT GREEN TOP; Complete Time: 15:54 eb 09/23 16:53 Order name: Wound dressing; Complete Time: 17:20 cp 09/23 17:40 Order name: EKG - Nurse/Tech; Complete Time: 18:05 cp EC/04 18:11 Rate is 140 beats/min. Rhythm is irregular. QRS interval is prolonged at 162 msec. QT cp interval is normal. T waves are Inverted in leads V3, V4. Interpreted by me. Reviewed by me. Administered Medications: 16:40 Drug: fentaNYL (PF) IVP 50 mcg IVP once Route: IVP; Site: right forearm; db 17:27 Follow up: Response: Pain is decreased db 17:15 Drug: Clindamycin IVPB 900 mg IVPB once over 30 mins; (mix in 50 mL) Route: IVPB; db Infused Over: 30 mins; Site: right forearm; 17:50 Follow up: IV Status: Completed infusion; IV Intake: 50ml db 17:26 Drug: NS 0.9% IV 250 ml IV at calculated rate once; to be given as a bolus over 30 db minutes Route: IV; Rate: calculated rate; Site: right forearm; 18:30 Follow up: Response: No adverse reaction; IV Status: Completed infusion; IV Intake: db 250ml Disposition Summary: 09/23/24 18:12 Discharge Ordered Notes: Location: Home cp Problem: new cp Symptoms: have improved cp Condition: Stable cp Diagnosis - Chronic atrial fibrillation cp - Cellulitis of right lower limb - foot cp - Crushing injury of foot - right cp Followup: cp - With: Emergency Department - When: As needed - Reason: Worsening of condition Discharge Instructions: - Discharge Summary Sheet cp - Atrial Fibrillation cp - Cellulitis, Adult cp Forms: - Medication Reconciliation Form cp - Antibiotic Education cp - Prescription Opioid Use cp - Patient Portal Instructions cp - Leadership Thank You Letter cp Prescriptions: - Cipro 500 mg Oral Tablet - take 1 tablet ORAL route every 12 hours for 10 days; 20 tablet; Refills: 0, cp Product Selection Permitted - Clindamycin HCl 300 mg Oral Capsule - take 1 capsule ORAL route every 6 hours for 10 days; 40 capsule; Refills: 0, cp Product Selection Permitted Addendum: 09/26/2024 10:24 Co-signature as Attending Physician, Will Mcknight MD I reviewed the patient's care r n provided by the Advanced Practice Provider and agree with the diagnosis and treatment plan. Signatures: Dispatcher [employer] EDMS Will Mcknight MD MD rn Yosef Coleman PA PA cp Prokisch, Amanda, RN RN ap3 Ariane Calix Danielle, RN RN db Corrections: (The following items were deleted from the chart) 09/23 14:22 14:22 Wound Culture+BA.LAB.BRZ ordered. EDMS EDMS 14:22 14:22 LACTATE+C.LAB.BRZ ordered. EDMS EDMS 14:22 14:22 CBC+H.LAB.BRZ ordered. EDMS EDMS 14:22 14:22 BASIC METABOLIC PANEL+C.LAB.BRZ ordered. EDMS EDMS 14:22 14:22 PROTIME (+INR)+COAG.LAB.BRZ ordered. EDMS EDMS 14:22 14:22 PTT, ACTIVATED+COAG.LAB.BRZ ordered. EDMS EDMS 14:22 14:22 Extremity Venous Uni Ltd+US.RAD.BRZ ordered. EDMS EDMS 14:22 14:22 Lower Extremity Artery Uni Ltd+US.RAD.BRZ ordered. EDMS EDMS 14:23 14:22 Foot Left 3 View+RAD.RAD.BRZ ordered. EDMS EDMS
[2024-09-23 18:58] VITALS: TEMP 98.4
[2024-09-23 19:01] VITALS: BP 101/90; O2SAT 96
--- NOTE | 2024-09-26 11:35 | EKG ---
Test Date: 2024-09-23 Test Time: 18:04:14 [employer] Installer: ANTONIO MEASUREMENT RESULTS: Intervals: Rate: 140 UT: QRSD: 162 QT: 374 QTc: 570 [place]: P: UT: QRS: 81 T: 9 INTERPRETIVE STATEMENTS: Atrial fibrillation with rapid ventricular response Right bundle branch block Abnormal ECG Compared to ECG 02/18/2024 10:05:32 Right bundle-branch block now present Sinus rhythm no longer present First degree AV block no longer present Myocardial infarct finding no longer present Electronically Signed On 09-26-24 11:30:11 CDT by Miguel Angel Barajas
== END 2024-09-23 18:30 | disposition home or self-care (01) ==
LOC: ER 13:30
DX: L03.115 Cellulitis of right lower limb (principal); I48.20 Chronic atrial fibrillation, unspecified; F17.210 Nicotine dependence, cigarettes, uncomplicated
CPT/HCPCS: 96365; 87040 ×2; 87070; 85025; 80048; 36415; 87205; 85610; 83605; 85730; 87077; 87186; 73630; 93926; 93971; 96375; 99285; J3010; J7050; 93005

== ENCOUNTER 2025-03-17 04:19 | Inpatient (IN) | payer MEDICAID ==
--- OUTSIDE RECORDS SUMMARY | 2025-03-17 04:22 | XMS REPORT | Continuity of Care Document ---
Author Name Unknown Address [address] [facility] [place] [address] Organization [facility] [place] Address [address] [facility] [place] [address] Care Team Providers Care Market Investigator Name Role Phone Lucie Becerra Attending Clinician Unavailable KRAIG Attending Clinician Unavailable MATTHEW Attending Clinician Unavailable Lance Varela Attending Clinician [phone] KRAIG Admitting Clinician Unavailable MATTHEW Admitting Clinician Unavailable Payers Payer Name Policy Type Policy Number Effective Date Expirati on Date Source [facility] 53 [id number] [facility] (MEDICAID HMO) [id number] 2020 00:00:00 Problems Condition Name Condition Details Condition Category Status Onset Date Resolution Date Last Treatment Date Treating Clinician Comments Source [id number] Tachycardi a Problem [facility] Disorders of bilirubin excretion Elevated bilirubin Problem [facility] [id number] Atrial fibrillati on, unspecifie d type Problem [facility] [id number] Acute combined systolic and diastolic congestive heart failure Problem [facility] [id number] Paroxysmal atrial fibrillati on Problem [facility] [id number] RLS (restless legs syndrome) Problem [facility] [id number] Primary insomnia Problem [facility] Paroxysmal supraventr icular tachycardi a (disorder) PSVT (paroxysma l supraventr icular tachycardi a) Problem [facility] [id number] Chronic hepatitis C without hepatic coma Problem [facility] [id number] Chronic pain syndrome Problem [facility] [id number] Anxiety Problem [facility] [id number] Anticoagul ation therapy continued upon discharge Problem [facility] [id number] Abnormal CBC Problem [facility] [id number] Anemia with low platelet count Problem [facility] [id number] Neutropeni a, unspecifie d type Problem [facility] [id number] Decreased platelet count Problem [facility] Social History Social Habit Start Date Stop Date Quantity Comments Source History of Tobacco Use Current Smoker [facility] Sex Assigned At [facility] Smoking Status Start Date Stop Date Source Heavy Tobacco Smoker [facility] Current Smoker 2024-09-30 00:00:00 [facility] Medications Ordered Medication [...] tablet every 8 hours by oral route. [facility] alprazolam 0.25 mg tablet TAKE 1 TABLET BY MOUTH TWICE A DAY alprazolam 0.25 mg tablet TAKE 1 TABLET BY MOUTH TWICE A DAY No alprazolam 0.25 mg tablet TAKE 1 TABLET BY MOUTH TWICE A DAY [facility] alprazolam 0.5 mg tablet TAKE 1 TABLET BY MOUTH TWICE A DAY alprazolam 0.5 mg tablet TAKE 1 TABLET BY MOUTH TWICE A DAY No alprazolam 0.5 mg tablet TAKE 1 TABLET BY MOUTH TWICE A DAY [facility] baclofen 20 mg tablet TAKE 1 TABLET BY MOUTH WITH FOOD OR MILK EVERY 8 HRS NEEDED baclofen 20 mg tablet TAKE 1 TABLET BY MOUTH WITH FOOD OR MILK EVERY 8 HRS NEEDED No baclofen 20 mg tablet TAKE 1 TABLET BY MOUTH WITH FOOD OR MILK EVERY 8 HRS NEEDED [facility] buspirone 5 mg tablet TAKE 1 TABLET BY MOUTH TWICE A DAY buspirone 5 mg tablet TAKE 1 TABLET BY MOUTH TWICE A DAY No buspirone 5 mg tablet TAKE 1 TABLET BY MOUTH TWICE A DAY [facility] cephalexin 500 mg capsule TAKE 1 CAPSULE BY MOUTH EVERY 6 HOURS FOR 10 DAYS FOR INFECTIOUS PROCEESS cephalexin 500 mg capsule TAKE 1 CAPSULE BY MOUTH EVERY 6 HOURS FOR 10 DAYS FOR INFECTIOUS PROCEESS No cephalexin 500 mg capsule TAKE 1 CAPSULE BY MOUTH EVERY 6 HOURS FOR 10 DAYS FOR INFECTIOUS PROCEESS [facility] clonazepam 0.5 mg tablet TAKE 1 TABLET BY MOUTH TWICE A DAY NEEDED FOR ANXIETY clonazepam 0.5 mg tablet TAKE 1 TABLET BY MOUTH TWICE A DAY NEEDED FOR ANXIETY No clonazepam 0.5 mg tablet TAKE 1 TABLET BY MOUTH TWICE A DAY NEEDED FOR ANXIETY [facility] cyclobenzap rine 5 mg tablet TAKE 1 TABLET BY MOUTH THREE TIMES DAILY NEEDED MUSCLE SPASMS cyclobenzap rine 5 mg tablet TAKE 1 TABLET BY MOUTH THREE TIMES DAILY NEEDED MUSCLE SPASMS No cyclobenza harleen 5 mg tablet TAKE 1 TABLET BY MOUTH THREE TIMES DAILY NEEDED MUSCLE SPASMS [facility] Eliquis 5 mg tablet TAKE 1 TABLET BY MOUTH TWICE A DAY Eliquis 5 mg tablet TAKE 1 TABLET BY MOUTH TWICE A DAY No Eliquis 5 mg tablet TAKE 1 TABLET BY MOUTH TWICE A DAY [facility] QUEtiapine Fumarate 50 MG QUEtiapine Fumarate 50 [...] 80 MG No Sotalol HCl 80 MG hydrocodone 10 mg-acetamin ophen 325 mg tablet TAKE 1 TABLET BY MOUTH TWICE A DAY NEEDED hydrocodone 10 mg-acetamin ophen 325 mg tablet TAKE 1 TABLET BY MOUTH TWICE A DAY NEEDED No hydrocodon e 10 mg-acetami nophen 325 mg tablet TAKE 1 TABLET BY MOUTH TWICE A DAY NEEDED [facility] Furosemide 40 MG Furosemide 40 MG No Furosemide 40 MG Eliquis 5 MG Eliquis 5 MG No 1{table t} BID Eliquis 5 MG Cipro 500 MG Cipro 500 MG No 1{table t} BID Cipro 500 MG hydrocodone 5 mg-acetamin ophen 325 mg tablet TAKE 1 TABLET BY MOUTH TWICE DAILY FOR 28 DAYS hydrocodone 5 mg-acetamin ophen 325 mg tablet TAKE 1 TABLET BY MOUTH TWICE DAILY FOR 28 DAYS No hydrocodon e 5 mg-acetami nophen 325 mg tablet TAKE 1 TABLET BY MOUTH TWICE DAILY FOR 28 DAYS [facility] hydrocodone 7.5 mg-acetamin ophen 325 mg tablet TAKE 1 TABLET BY MOUTH TWICE A DAY hydrocodone 7.5 mg-acetamin ophen 325 mg tablet TAKE 1 TABLET BY MOUTH TWICE A DAY No hydrocodon e 7.5 mg-acetami nophen 325 mg tablet TAKE 1 TABLET BY MOUTH TWICE A DAY [facility] hydroxyzine HCl 25 mg tablet TAKE 1 TABLET BY MOUTH EVERY 8 HOURS NEEDED FOR ANXIETY hydroxyzine HCl 25 mg tablet TAKE 1 TABLET BY MOUTH EVERY 8 HOURS NEEDED FOR ANXIETY No hydroxyzin e HCl 25 mg tablet TAKE 1 TABLET BY MOUTH EVERY 8 HOURS NEEDED FOR ANXIETY [facility] ibuprofen 600 mg tablet TAKE 1 TABLET BY MOUTH THREE TIMES A DAY WITH FOOD OR MILK NEEDED ibuprofen 600 mg tablet TAKE 1 TABLET BY MOUTH THREE TIMES A DAY WITH FOOD OR MILK NEEDED No ibuprofen 600 mg tablet TAKE 1 TABLET BY MOUTH THREE TIMES A DAY WITH FOOD OR MILK NEEDED [facility] metoprolol tartrate 25 mg tablet TAKE 1 TABLET BY MOUTH TWICE A DAY WITH FOOD ORALLY TWICE A DAY metoprolol tartrate 25 mg tablet TAKE 1 TABLET BY MOUTH TWICE A DAY WITH FOOD ORALLY TWICE A DAY No metoprolol tartrate 25 mg tablet TAKE 1 TABLET BY MOUTH TWICE A DAY WITH FOOD ORALLY TWICE A DAY [facility] quetiapine 50 mg tablet TAKE ONE TABLET BY MOUTH AT BEDTIME FOR 90 DAYS quetiapine 50 mg tablet TAKE ONE TABLET BY MOUTH AT BEDTIME FOR 90 DAYS No quetiapine 50 mg tablet TAKE ONE TABLET BY MOUTH AT BEDTIME FOR 90 DAYS [facility] ropinirole 1 mg tablet TAKE 1 TABLET [...] 3 HOURS BEFORE BEDTIME FOR 90 DAYS [facility] trazodone 50 mg tablet TAKE 1 TABLET BY MOUTH EVERY DAY AT BEDTIME NEEDED trazodone 50 mg tablet TAKE 1 TABLET BY MOUTH EVERY DAY AT BEDTIME NEEDED No trazodone 50 mg tablet TAKE 1 TABLET BY MOUTH EVERY DAY AT BEDTIME NEEDED [facility] acetaminoph en 300 mg-codeine 30 mg tablet TAKE 1 TABLET BY MOUTH EVERY 8 HOURS acetaminoph en 300 mg-codeine 30 mg tablet TAKE 1 TABLET BY MOUTH EVERY 8 HOURS No acetaminop hen 300 mg-codeine 30 mg tablet TAKE 1 TABLET BY MOUTH EVERY 8 HOURS [facility] alprazolam 0.25 mg tablet TAKE 1 TABLET BY MOUTH TWICE A DAY alprazolam 0.25 mg tablet TAKE 1 TABLET BY MOUTH TWICE A DAY No alprazolam 0.25 mg tablet TAKE 1 TABLET BY MOUTH TWICE A DAY [facility] alprazolam 0.5 mg tablet TAKE 1 TABLET BY MOUTH TWICE A DAY alprazolam 0.5 mg tablet TAKE 1 TABLET BY MOUTH TWICE A DAY No alprazolam 0.5 mg tablet TAKE 1 TABLET BY MOUTH TWICE A DAY [facility] baclofen 20 mg tablet TAKE 1 TABLET BY MOUTH WITH FOOD OR MILK EVERY 8 HRS NEEDED baclofen 20 mg tablet TAKE 1 TABLET BY MOUTH WITH FOOD OR MILK EVERY 8 HRS NEEDED No baclofen 20 mg tablet TAKE 1 TABLET BY MOUTH WITH FOOD OR MILK EVERY 8 HRS NEEDED [facility] buspirone 5 mg tablet TAKE 1 TABLET BY MOUTH TWICE A DAY buspirone 5 mg tablet TAKE 1 TABLET BY MOUTH TWICE A DAY No buspirone 5 mg tablet TAKE 1 TABLET BY MOUTH TWICE A DAY [facility] cephalexin 500 mg capsule TAKE 1 CAPSULE BY MOUTH EVERY 6 HOURS FOR 10 DAYS FOR INFECTIOUS PROCEESS cephalexin 500 mg capsule TAKE 1 CAPSULE BY MOUTH EVERY 6 HOURS FOR 10 DAYS FOR INFECTIOUS PROCEESS No cephalexin 500 mg capsule TAKE 1 CAPSULE BY MOUTH EVERY 6 HOURS FOR 10 DAYS FOR INFECTIOUS PROCEESS [facility] clonazepam 0.5 mg tablet TAKE 1 TABLET BY MOUTH TWICE A DAY NEEDED FOR ANXIETY clonazepam 0.5 mg tablet TAKE 1 TABLET BY MOUTH TWICE A DAY NEEDED FOR ANXIETY No clonazepam 0.5 mg tablet TAKE 1 TABLET BY MOUTH TWICE A DAY NEEDED FOR ANXIETY [facility] cyclobenzap rine 5 mg tablet TAKE 1 TABLET BY MOUTH THREE TIMES DAILY NEEDED MUSCLE SPASMS cyclobenzap rine 5 mg tablet TAKE 1 TABLET BY MOUTH THREE TIMES DAILY NEEDED MUSCLE SPASMS No cyclobenza harleen 5 mg tablet TAKE 1 TABLET BY MOUTH THREE TIMES DAILY NEEDED MUSCLE SPASMS [facility] Eliquis 5 mg tablet TAKE 1 TABLET BY MOUTH TWICE A DAY Eliquis 5 mg tablet TAKE 1 TABLET BY MOUTH TWICE A DAY No Eliquis 5 mg tablet TAKE 1 TABLET BY MOUTH TWICE A DAY [facility] hydrocodone 10 mg-acetamin ophen 325 mg tablet TAKE 1 TABLET BY MOUTH TWICE A DAY NEEDED hydrocodone 10 mg-acetamin ophen 325 mg tablet TAKE 1 TABLET BY MOUTH TWICE A DAY NEEDED No hydrocodon e 10 mg-acetami nophen 325 mg tablet TAKE 1 TABLET BY MOUTH TWICE A DAY NEEDED [facility] hydrocodone 5 mg-acetamin ophen 325 mg tablet TAKE 1 TABLET BY MOUTH TWICE DAILY FOR 28 DAYS hydrocodone 5 mg-acetamin ophen 325 mg tablet TAKE 1 TABLET BY MOUTH TWICE DAILY FOR 28 DAYS No hydrocodon e 5 mg-acetami nophen 325 mg tablet TAKE 1 TABLET BY MOUTH TWICE DAILY FOR 28 DAYS [facility] hydrocodone 7.5 mg-acetamin ophen 325 mg tablet TAKE 1 TABLET BY MOUTH TWICE A DAY hydrocodone 7.5 mg-acetamin ophen 325 mg tablet TAKE 1 TABLET BY MOUTH TWICE A DAY No hydrocodon e 7.5 mg-acetami nophen 325 mg tablet TAKE 1 TABLET BY MOUTH TWICE A DAY [facility] hydroxyzine HCl 25 mg tablet TAKE 1 TABLET BY MOUTH EVERY 8 HOURS NEEDED FOR ANXIETY hydroxyzine HCl 25 mg tablet TAKE 1 TABLET BY MOUTH EVERY 8 HOURS NEEDED FOR ANXIETY No hydroxyzin e HCl 25 mg tablet TAKE 1 TABLET BY MOUTH EVERY 8 HOURS NEEDED FOR ANXIETY [facility] ibuprofen 600 mg tablet TAKE 1 TABLET BY MOUTH THREE TIMES A DAY WITH FOOD OR MILK NEEDED ibuprofen 600 mg tablet TAKE 1 TABLET BY MOUTH THREE TIMES A DAY WITH FOOD OR MILK NEEDED No ibuprofen 600 mg tablet TAKE 1 TABLET BY MOUTH THREE TIMES A DAY WITH FOOD OR MILK NEEDED [facility] metoprolol tartrate 25 mg tablet TAKE 1 TABLET BY MOUTH TWICE A DAY WITH FOOD ORALLY TWICE A DAY metoprolol tartrate 25 mg tablet TAKE 1 TABLET BY MOUTH TWICE A DAY WITH FOOD ORALLY TWICE A DAY No metoprolol tartrate 25 mg tablet TAKE 1 TABLET BY MOUTH TWICE A DAY WITH FOOD ORALLY TWICE A DAY [facility] quetiapine 50 mg tablet TAKE ONE TABLET BY MOUTH AT BEDTIME FOR 90 DAYS quetiapine 50 mg tablet TAKE ONE TABLET BY MOUTH AT BEDTIME FOR 90 DAYS No quetiapine 50 mg tablet TAKE ONE TABLET BY MOUTH AT BEDTIME FOR 90 DAYS [facility] ropinirole 1 mg tablet TAKE 1 TABLET [...] 3 HOURS BEFORE BEDTIME FOR 90 DAYS [facility] trazodone 50 mg tablet TAKE 1 TABLET BY MOUTH EVERY DAY AT BEDTIME NEEDED trazodone 50 mg tablet TAKE 1 TABLET BY MOUTH EVERY DAY AT BEDTIME NEEDED No trazodone 50 mg tablet TAKE 1 TABLET BY MOUTH EVERY DAY AT BEDTIME NEEDED [facility] Ibuprofen 600 MG Ibuprofen 600 MG 11-16 00:00 :00 No TID Ibuprofen 600 MG Immunizations Ordered Immunization Name Filled Immunization Name Date Status Comments Source Flucelvax - single dose syringe Flucelvax - single dose syringe 2022-05-22 10:57:[address] [facility] COVID-19 Vaccine (Meme) [...] Time Observation Value Comments S ource height 2024-09-30 13:40:00 72 [in_i] Commo n [facility] weight 2024-09-30 13:40:00 223.6 [lb_av] Co mmon [facility] temperature 2024-09-30 13:40:00 96.8 [degF] Com mon [facility] bmi 2024-09-30 13:40:00 30.32 kg/m2 Comm on [facility] oximetry 2024-09-30 13:40:00 94 % Commo n [facility] respiratory rate 2024-09-30 13:40:00 16 /min [facility] blood pressure systolic 2024-09-30 13:40:00 94 mm[Hg] [facility] blood pressure diastolic 2024-09-30 13:40:00 65 mm[Hg] [facility] height 2024-07-22 08:40:00 72 [in_i] Commo n [facility] weight 2024-07-22 08:40:00 204.2 [lb_av] Co mmon [facility] temperature 2024-07-22 08:40:00 97.4 [degF] Com [facility] bmi 2024-07-22 08:40:00 27.69 kg/m2 Comm on [facility] oximetry 2024-07-22 08:40:00 96 % Commo n [facility] respiratory rate 2024-07-22 08:40:00 16 /min Common [facility] blood pressure systolic 2024-07-22 08:40:00 126 mm[Hg] [facility] blood pressure diastolic 2024-07-22 08:40:00 86 mm[Hg] Common [facility] height 2024-03-24 10:20:00 72 [in_i] Commo n [facility] weight 2024-03-24 10:20:00 199.0 [lb_av] Co mmon [facility] temperature 2024-03-24 10:20:00 97.9 [degF] Com [facility] bmi 2024-03-24 10:20:00 26.99 kg/m2 Comm on [facility] oximetry 2024-03-24 10:20:00 96 % Commo n [facility] respiratory rate 2024-03-24 10:20:00 18 /min Common [facility] blood pressure systolic 2024-03-24 10:20:00 109 mm[Hg] Common [facility] blood pressure diastolic 2024-03-24 10:20:00 87 mm[Hg] Common [facility] height 2023-12-23 08:20:00 72 [in_i] Commo n [facility] weight 2023-12-23 08:20:00 210.6 [lb_av] Co mmon [facility] temperature 2023-12-23 08:20:00 98.0 [degF] Com mon [facility] bmi 2023-12-23 08:20:00 28.56 kg/m2 Comm on [facility] oximetry 2023-12-23 08:20:00 95 % Commo n [facility] respiratory rate 2023-12-23 08:20:00 18 /min Common [facility] blood pressure systolic 2023-12-23 08:20:00 120 mm[Hg] Common [facility] blood pressure diastolic 2023-12-23 08:20:00 83 mm[Hg] [facility] height 2023-08-27 14:20:00 72 [in_i] Commo n [facility] weight 2023-08-27 14:20:00 204.2 [lb_av] Co [facility] temperature 2023-08-27 14:20:00 97.2 [degF] Com [facility] bmi 2023-08-27 14:20:00 27.69 kg/m2 Comm on [facility] oximetry 2023-08-27 14:20:00 95 % Commo n [facility] respiratory rate 2023-08-27 14:20:00 15 /min Common [facility] blood pressure systolic 2023-08-27 14:20:00 113 mm[Hg] Common [facility] blood pressure diastolic 2023-08-27 14:20:00 72 mm[Hg] Common [facility] height 2023-05-28 10:00:00 72 [in_i] Commo n [facility] weight 2023-05-28 10:00:00 203.2 [lb_av] Co [facility] temperature 2023-05-28 10:00:00 97.2 [degF] Com [facility] bmi 2023-05-28 10:00:00 27.56 kg/m2 Comm on [facility] oximetry 2023-05-28 10:00:00 98 % Commo n [facility] respiratory rate 2023-05-28 10:00:00 15 /min [facility] blood pressure systolic 2023-05-28 10:00:00 106 mm[Hg] Common [facility] blood pressure diastolic 2023-05-28 10:00:00 85 mm[Hg] Common [facility] height 2023-02-20 10:40:00 72 [in_i] Commo n [facility] weight 2023-02-20 10:40:00 201.0 [lb_av] Co [facility] temperature 2023-02-20 10:40:00 98.8 [degF] Com [facility] bmi 2023-02-20 10:40:00 27.26 kg/m2 Comm on [facility] oximetry 2023-02-20 10:40:00 95 % Commo n [facility] respiratory rate 2023-02-20 10:40:00 16 /min [facility] blood pressure systolic 2023-02-20 10:40:00 134 mm[Hg] [facility] blood pressure diastolic 2023-02-20 10:40:00 89 mm[Hg] Common [facility] height 2022-11-20 11:40:00 72 [in_i] Commo n [facility] weight 2022-11-20 11:40:00 204.6 [lb_av] Co [facility] temperature 2022-11-20 11:40:00 97.3 [degF] Com [facility] bmi 2022-11-20 11:40:00 27.75 kg/m2 Comm on [facility] oximetry 2022-11-20 11:40:00 96 % Commo n [facility] respiratory rate 2022-11-20 11:40:00 16 /min Common [facility] blood pressure systolic 2022-11-20 11:40:00 133 mm[Hg] Common [facility] blood pressure diastolic 2022-11-20 11:40:00 95 mm[Hg] Common [facility] height 2022-08-20 14:00:00 72 [in_i] Commo n [facility] weight 2022-08-20 14:00:00 201.8 [lb_av] Co on [facility] temperature 2022-08-20 14:00:00 98.2 [degF] Com [facility] bmi 2022-08-20 14:00:00 27.37 kg/m2 Comm on [facility] oximetry 2022-08-20 14:00:00 96 % Commo n [facility] respiratory rate 2022-08-20 14:00:00 16 /min [facility] blood pressure systolic 2022-08-20 14:00:00 130 mm[Hg] Common [facility] blood pressure diastolic 2022-08-20 14:00:00 84 mm[Hg] Common [facility] height 2022-05-22 10:40:00 72 [in_i] Commo n [facility] weight 2022-05-22 10:40:00 198.6 [lb_av] Co mmon [facility] temperature 2022-05-22 10:40:00 97.0 [degF] Com [facility] bmi 2022-05-22 10:40:00 26.93 kg/m2 Comm on [facility] oximetry 2022-05-22 10:40:00 97 % Commo n [facility] respiratory rate 2022-05-22 10:40:00 17 /min [facility] blood pressure systolic 2022-05-22 10:40:00 126 mm[Hg] Common [facility] blood pressure diastolic 2022-05-22 10:40:00 86 mm[Hg] Common [facility] height 2022-02-20 10:40:00 72 [in_i] Commo n [facility] weight 2022-02-20 10:40:00 192 [lb_av] Comm on [facility] temperature 2022-02-20 10:40:00 97.4 [degF] Com mon [facility] bmi 2022-02-20 10:40:00 26.04 kg/m2 Comm on [facility] oximetry 2022-02-20 10:40:00 96 % Commo n [facility] respiratory rate 2022-02-20 10:40:00 19 /min [facility] blood pressure systolic 2022-02-20 10:40:00 113 mm[Hg] [facility] blood pressure diastolic 2022-02-20 10:40:00 62 mm[Hg] Common [facility] height 2022-01-23 14:30:00 72 [in_i] Commo n [facility] weight 2022-01-23 14:30:00 189.3 [lb_av] Co mmon [facility] temperature 2022-01-23 14:30:00 97.9 [degF] Com mon [facility] bmi 2022-01-23 14:30:00 25.67 kg/m2 Comm on [facility] blood pressure systolic 2022-01-23 14:30:00 128 mm[Hg] Common [facility] blood pressure diastolic 2022-01-23 14:30:00 74 mm[Hg] Common [facility] height 2021-11-21 11:40:00 72 [in_i] Commo n [facility] weight 2021-11-21 11:40:00 195 [lb_av] Comm on [facility] temperature 2021-11-21 11:40:00 98.3 [degF] Com mon [facility] bmi 2021-11-21 11:40:00 26.44 kg/m2 Comm on [facility] oximetry 2021-11-21 11:40:00 97 % Commo n [facility] respiratory rate 2021-11-21 11:40:00 16 /min Common [facility] blood pressure systolic 2021-11-21 11:40:00 104 mm[Hg] Common [facility] blood pressure diastolic 2021-11-21 11:40:00 54 mm[Hg] [facility] BP Diastolic 2021-09-17 00:00:00 69 mm[Hg] [facility] Height 2021-09-17 00:00:00 72 [in_i] [facility] BMI (Body Mass Index) 2021-09-17 00:00:00 27.1 kg/m2 [facility] BP Systolic 2021-09-17 00:00:00 130 mm[Hg] [facility] Body Weight 2021-09-17 00:00:00 3200 [oz_av] [facility] BP Diastolic 2021-09-12 00:00:00 75 mm[Hg] [facility] Height 2021-09-12 00:00:00 72 [in_i] [facility] BMI (Body Mass Index) 2021-09-12 00:00:00 27.1 kg/m2 [facility] BP Systolic 2021-09-12 00:00:00 141 mm[Hg] [facility] Body Weight 2021-09-12 00:00:00 3200 [oz_av] [facility] height 2021-09-06 13:20:00 72 [in_i] Commo n [facility] weight 2021-09-06 13:20:00 196.2 [lb_av] Co mmon [facility] temperature 2021-09-06 13:20:00 98.7 [degF] Com [facility] bmi 2021-09-06 13:20:00 26.61 kg/m2 Comm on [facility] oximetry 2021-09-06 13:20:00 97 % Commo n [facility] respiratory rate 2021-09-06 13:20:00 16 /min Common [facility] height 2021-08-21 11:00:00 72 [in_i] Commo n [facility] weight 2021-08-21 11:00:00 195 [lb_av] Comm on [facility] temperature 2021-08-21 11:00:00 97.9 [degF] Com [facility] bmi 2021-08-21 11:00:00 26.44 kg/m2 Comm on [facility] oximetry 2021-08-21 11:00:00 99 % Commo n [facility] respiratory rate 2021-08-21 11:00:00 16 /min [facility] blood pressure systolic 2021-08-21 11:00:00 138 mm[Hg] Common [facility] blood pressure diastolic 2021-08-21 11:00:00 71 mm[Hg] [facility] height 2021-05-20 10:40:00 72 [in_i] Commo n [facility] weight 2021-05-20 10:40:00 199 [lb_av] Comm on [facility] temperature 2021-05-20 10:40:00 97.8 [degF] Com [facility] bmi 2021-05-20 10:40:00 26.99 kg/m2 Comm on [facility] oximetry 2021-05-20 10:40:00 97 % Commo n [facility] respiratory rate 2021-05-20 10:40:00 16 /min [facility] blood pressure systolic 2021-05-20 10:40:00 136 mm[Hg] [facility] blood pressure diastolic 2021-05-20 10:40:00 72 mm[Hg] [facility] Encounters Start Date/Time End Date/Time Encounter Type Admission Type Attending [facility] Care Department Encounter ID Source 2023-12-21 09:54:00 Outpatient Lucie Becerra [facility] [id number] [facility] 2022-05-22 07:15:00 Outpatient Lucie Becerra [facility] [id number] [facility] 2022-02-18 13:42:01 Outpatient Lucie Becerra [facility] [id number] [facility] 2021-11-21 16:06:01 Outpatient Lucie Becerra [facility] [id number] [facility] 2021-11-11 10:25:02 Outpatient Lucie Becerra [facility] [id number] [facility] 2021-09-09 11:52:01 Outpatient Lucie Becerra [facility] [id number] [facility] 2021-09-04 09:26:02 Outpatient Lucie Becerra STLMLC STLMLC [id number] [facility] 2021-08-16 14:50:01 Outpatient Lucie Becerra STLMLC STLMLC [id number] [facility] 2021-07-17 13:43:09 Outpatient Lucie Becerra STLMLC STLMLC [id number] [facility] 2021-07-17 12:54:53 Outpatient Lucie Beecrra STLMLC STLMLC [id number] [facility] 2021-07-17 12:42:31 Outpatient Lucie Becerra STLMLC STLMLC [id number] [facility] 2021-07-17 12:36:42 Outpatient Lucie Becerra STLMLC STLMLC [id number] [facility] 2024-09-30 00:00:00 2024-09-30 00:00:00 OFFICE VISIT ESTAB PT LEVEL [id number] [facility] 2024-09-29 00:00:00 2024-09-29 00:00:00 (TEL) [facility]LMLC STLMLC [id number] [facility] 2024-09-21 00:00:00 2024-09-21 00:00:00 (TEL) [facility]LMLC [facility]LMLC [id number] [facility] 2024-09-08 00:00:00 2024-09-08 00:00:00 (TEL) [facility]LMLC [facility]LMLC [id number] [facility] 2024-09-06 00:00:00 2024-09-06 00:00:00 (TEL) [facility]LMLC [facility]LMLC [id number] [facility] 2024-07-22 00:00:00 2024-07-22 00:00:00 OFFICE VISIT ESTAB PT LEVEL [id number] [facility] 2024-07-20 00:00:00 2024-07-20 00:00:00 (TEL) [facility]LMLC STLMLC [id number] [facility] 2024-05-17 00:00:00 2024-05-17 00:00:00 (TEL) [facility]LMLC STLMLC [id number] [facility] 2024-05-16 00:00:00 2024-05-16 00:00:00 (TEL) [facility]LMLC [facility]LMLC [id number] [facility] 2024-04-19 00:00:00 2024-04-19 00:00:00 (TEL) [facility]LMLC [facility]LMLC [id number] [facility] 2024-03-24 00:00:00 2024-03-24 00:00:00 OFFICE VISIT ESTAB PT LEVEL [id number] [facility] 2023-12-23 00:00:00 2023-12-23 00:00:00 OFFICE VISIT ESTAB PT LEVEL [id number] [facility] 2023-12-02 00:00:00 2023-12-02 00:00:00 (TEL) [facility]LMLC STLMLC [id number] [facility] 2023-09-08 00:00:00 2023-09-08 00:00:00 (TEL) [facility]LMLC [facility]LMLC [id number] [facility] 2023-08-27 00:00:00 2023-08-27 00:00:00 OFFICE VISIT ESTAB PT LEVEL [id number] [facility] 2023-08-06 00:00:00 2023-08-06 00:00:00 (TEL) [facility]LMLC STLMLC [id number] [facility] 2023-05-28 00:00:00 2023-05-28 00:00:00 OFFICE VISIT ESTAB PT LEVEL [id number] [facility] 2023-02-20 00:00:00 2023-02-20 00:00:00 OFFICE VISIT ESTAB PT LEVEL [id number] [facility] 2022-12-15 00:00:00 2022-12-15 00:00:00 (TEL) [facility]LMLC STLMLC [id number] [facility] 2022-11-20 00:00:00 2022-11-20 00:00:00 OFFICE VISIT ESTAB PT LEVEL [id number] [facility] 2022-08-20 00:00:00 2022-08-20 00:00:00 OFFICE VISIT ESTAB PT LEVEL [id number] [facility] 2022-05-22 00:00:00 2022-05-22 00:00:00 OFFICE VISIT EST PT LEVEL [id number] [facility] 2022-02-20 00:00:00 2022-02-20 00:00:00 OFFICE VISIT EST PT LEVEL [id number] [facility] 2022-01-23 00:00:00 2022-01-23 00:00:00 OFFICE VISIT NEW PT LEVEL [id number] [facility] 2021-11-21 00:00:00 2021-11-21 00:00:00 OFFICE VISIT ESTAB PT LEVEL [id number] [facility] 2021-11-07 00:00:00 2021-11-07 00:00:00 (TEL) [facility]LMLC [facility]LMLC [id number] [facility] 2021-11-05 00:00:00 2021-11-05 00:00:00 (TEL) [facility]LMLC [facility]LMLC [id number] [facility] 2021-09-17 00:00:00 2021-09-17 00:00:00 Outpatient Lance Varela [facility] [id number] 2021-09-17 00:00:00 2021-09-17 00:00:00 Lance Varela MD: [place] [address] , Ph. [facility] [id number] [facility] 2021-09-12 00:00:00 2021-09-12 00:00:00 Lance [place]la [place]: [place] [address] , Ph. [facility] [id number] [facility] 2021-09-12 00:00:00 2021-09-12 00:00:00 Outpatient Lance Varela [facility] [id number] 2021-09-06 00:00:00 2021-09-06 00:00:00 OFFICE VISIT EST PT LEVEL [id number] [facility] 2021-08-21 00:00:00 2021-08-21 00:00:00 OFFICE VISIT ESTAB PT LEVEL [id number] [facility] 2021-05-21 00:00:00 2021-05-21 00:00:00 OFFICE VISIT ESTAB PT LEVEL [id number] [facility] 2021-05-20 00:00:00 2021-05-20 00:00:00 OFFICE VISIT ESTAB PT LEVEL [id number] [facility] 2021-05-20 00:00:00 2021-05-20 00:00:00 (TEL) [facility]LMLC [facility]LMLC [id number] [facility] 2021-02-13 00:00:00 2021-02-13 00:00:00 Outpatient [facility] [id number] [facility] 2020-12-20 00:00:00 2020-12-20 00:00:00 [address] [facility] [id number] [facility] 2020-10-25 00:00:00 2020-10-25 00:00:00 Out[address] [facility] [id number] [facility] 2020-10-24 00:00:00 2020-10-24 00:00:00 Out[address] [facility] [id number] [facility] 2020-10-10 00:00:00 2020-10-10 00:00:00 [address] [facility] [id number] [facility] 2020-10-09 00:00:00 2020-10-09 00:00:00 Out[address] [facility] [id number] [facility] 2020-09-03 00:00:00 2020-09-03 00:00:00 [address] [facility] [id number] [facility] 2020-08-24 00:00:00 2020-08-24 00:00:00 Out[address] [facility] [id number] [facility]
[2025-03-17 04:53] LABS: Absolute Lymphocytes (CBC) 1.4 K/uL (0.7-4.9); Hematocrit 38.6 % (39.6-49.0); Hemoglobin 13.4 g/dL (13.6-17.9); MCH 34.6 pg (27.0-35.0); MCHC 34.6 g/dL (32.0-36.0); MCV 99.9 fL (80-100); MPV 8.7 fL (7.6-11.3); Nucleated RBC Absolute Count 0.0 (0-0); Nucleated Red Blood Cells % 0.1 % (0-0); RBC Red Blood Cell Count 3.87 M/uL (4.33-5.43); White Blood Count 3.30 thou/uL (4.3-10.9)
[2025-03-17] MEDS ORDERED: NITROGLYCERIN 0.4 MG/TAB SL ONE (04:53)
[2025-03-17 04:58] LABS: PT Prothrombin Time 18.7 SECONDS (10-13.0); Protime INR 1.68
[2025-03-17 05:12] LABS: ALT/SGPT 23.0 U/L (16-61); AST/SGOT 44.0 U/L (15-37); Albumin 2.6 g/dL (3.4-5.0); Albumin/Globulin Ratio 0.6 (1.1-1.8); Alkaline Phosphatase 71.0 U/L (45-117); Anion Gap 9.9 mEq/L (5.0-15.0); BUN Blood Urea Nitrogen 13.0 mg/dL (7-18); Bilirubin Indirect, Calculated 0.8 mg/dL (0.2-0.8); Globulin 4.2 g/dL (2.3-3.5); Glucose Level 114.0 mg/dL (74-106); Magnesium 1.7 mg/dL (1.6-2.4); NT PRO-BNP 3079.0 pg/mL (<125); Potassium 3.9 mEq/L (3.5-5.1); Troponin High Sensitivity 17.6 pg/mL (<58.9)
[2025-03-17 05:42] LABS: Blood Morphology Comment NOT SEEN (NOT SEEN); White Blood Cell Scan OK (OK)
[2025-03-17] MEDS ORDERED: ACETAMINOPHEN 500 MG TAB ONE (05:44)
--- NOTE | 2025-03-17 05:51 | EDPHYS ---
Physician Documentation [facility] Name: Joe Ricks Age: 64 yrs Sex: Male : 1960 Arrival Date: 03/17/2025 Time: 04:19 Bed 17 Private MD: ED Physician Jimmy Hernandez HPI: 03/17 04:54 This 64 yrs old Male presents to ER via Ambulatory with complaints of Chest Pain. sp3 04:56 64-year-old male with history of atrial fibrillation, CAD, anxiety now presents to the 3 ED with chest pain and recurrent tachycardia. Symptoms started few hours prior to arrival. Patient states mild shortness of breath but denies any headache, neck pain, back pain, abdominal pain, vomit, diarrhea, syncope, near syncope, fever, URI symptoms, or any other signs or symptoms on ROS at this time. He is on Eliquis.. Historical: - Allergies: 04:43 No Known Allergies; ha1 - PMHx: 04:43 Anxiety; Atrial fibrillation; Broken Neck; palpitations; restless leg syndrome; right ha1 hear loss; - PSHx: 04:43 3 plates in skull; cardioversion; ha1 - Immunization history:: Adult Immunizations up to date. - Infectious Disease History:: Denies. - Social history:: Smoking status: Patient reports the use of cigarette tobacco products, smokes one-half pack cigarettes per day. ROS: 04:57 Constitutional: Negative for fever, chills, and weight loss, Eyes: Negative for injury, sp3 pain, redness, and discharge, ENT: Negative for injury, pain, and discharge, Neck: Negative for injury, pain, and swelling, Abdomen/GI: Negative for abdominal pain, nausea, vomiting, diarrhea, and constipation, Back: Negative for injury and pain, MS/Extremity: Negative for injury and deformity, Skin: Negative for injury, rash, and discoloration, Neuro: Negative for headache, weakness, numbness, tingling, and seizure, Psych: Negative for depression, anxiety, suicide ideation, homicidal ideation, and hallucinations, Allergy/Immunology: Negative for hives, rash, and allergies, Endocrine: Negative for neck swelling, polydipsia, polyuria, polyphagia, and marked weight changes, Hematologic/Lymphatic: Negative for swollen nodes, abnormal bleeding, and unusual bruising, 04:57 All other systems are negative, Exam: 04:57 Constitutional: This is a well developed, well nourished patient who is awake, alert, sp3 and in no acute distress. Head/Face: Normocephalic, atraumatic. Eyes: Pupils equal round and reactive to light, extra-ocular motions intact. Lids and lashes normal. Conjunctiva and sclera are non-icteric and not injected. Cornea within normal limits. Periorbital areas with no swelling, redness, or edema. Neck: Trachea midline, no thyromegaly or masses palpated, and no cervical lymphadenopathy. Supple, full range of motion without nuchal rigidity, or vertebral point tenderness. No Meningismus. Chest/axilla: Normal chest wall appearance and motion. Nontender with no deformity. No lesions are appreciated. Respiratory: Lungs have equal breath sounds bilaterally, clear to auscultation and percussion. No rales, rhonchi or wheezes noted. No increased work of breathing, no retractions or nasal flaring. Abdomen/GI: Soft, non-tender, with normal bowel sounds. No distension or tympany. No guarding or rebound. No evidence of tenderness throughout. Back: No spinal tenderness. No costovertebral tenderness. Full range of motion. Skin: Warm, dry with normal turgor. Normal color with no rashes, no lesions, and no evidence of cellulitis. MS/ Extremity: Pulses equal, no cyanosis. Neurovascular intact. Full, normal range of motion. Neuro: Awake and alert, GCS 15, oriented to person, place, time, and situation. Cranial nerves II-XII grossly intact. Motor strength 5/5 in all extremities. Sensory grossly intact. Cerebellar exam normal. Normal gait. Psych: Awake, alert, with orientation to person, place and time. Behavior, mood, and affect are within normal limits. 04:57 Cardiovascular: Patient is in atrial fibrillation with ventricular response in the 120s. Blood pressure 147/115. 97% on room air. Breathing at 18 to 20 breaths/min., 04:58 ECG was reviewed by the Attending Physician. EKG demonstrates atrial fibrillation with sp3 ventricular capture at 122 bpm, absent SD interval, QTc prolongation of 530 ms, normal axis normal QRS and nonspecific diffuse ST/T changes without evidence of acute ischemia. Vital Signs: 04:22 BP 147 / 115; Pulse 124; Resp 20 S; Pulse Ox 97% on R/A; Weight 95.25 kg; Height 5 ft. ha1 10 in. ; Pain 9/10; 05:06 BP 135 / 103; Pulse 121; Resp 18; Pulse Ox 94% on R/A; kd3 05:19 BP 117 / 90; Pulse 98; Resp 18; Pulse Ox 93% on R/A; kd3 05:20 Temp 98.2(O); kd3 05:32 BP 115 / 90; Pulse 103; Resp 18; Pulse Ox 95% on R/A; kd3 06:16 BP 125 / 92; Pulse 97; Resp 18; Pulse Ox 96% on R/A; kd3 06:29 BP 128 / 91; Pulse 92; Resp 18; Pulse Ox 96% on R/A; kd3 08:10 BP 130 / 82; Pulse 86; Resp 12; Temp 97.9; Pulse Ox 96% ; bp 04:22 Body Mass Index 30.13 (95.25 kg, 177.8 cm) ha1 04:22 Pain Scale: Adult ha1 MDM: 04:35 Medical Screening Exam initiated sp3 04:57 Data reviewed: vital signs, nurses notes, old medical records, lab test result(s), EKG, sp3 radiologic studies. ED course: 64-year-old male with PMH above now with recurrent chest pain and atrial fibrillation with RVR. We will rate control and administer nitro. Differential diagnosis includes acute coronary syndrome, idiopathic atrial fibrillation, sick sinus syndrome, electrolyte disturbance, among others. Full workup pending and patient will likely need to be admitted to the hospital. Consider amiodarone if AV charbel blockade is unsuccessful.. 05:49 ED course: Patient feeling better with nitroglycerin and heart rate is now in the 90s sp3 after AV charbel blockade. Patient will be admitted for chest pain cardiac rule out and medical management of remainder of his cardiac presentation. Again patient is already on Eliquis. No further anticoagulation indicated.. 03/17 04:35 Order name: Basic Metabolic Panel; Complete Time: 05:43 sp3 03/17 04:35 Order name: CBC with Diff; Complete Time: 05:43 sp3 03/17 04:35 Order name: LFT's; Complete Time: : sp3 03/17 04:35 Order name: Magnesium; Complete Time: 05:43 sp3 03/17 04:35 Order name: NT PRO-BNP; Complete Time: 05:43 sp3 03/17 04:35 Order name: PT-INR; Complete Time: 05:43 sp3 03/17 04:35 Order name: Troponin HS; Complete Time: 05:43 sp3 03/17 05:06 Order name: CBC Smear Scan; Complete Time: 05:43 EDMS 03/17 07:29 Order name: Basic Metabolic Panel EDMS 03/17 07:29 Order name: Basic Metabolic Panel EDMS 03/17 07:29 Order name: Basic Metabolic Panel EDMS 03/17 07:29 Order name: Basic Metabolic Panel EDMS 03/17 07:29 Order name: CBC with Automated Diff EDMS 03/17 07:29 Order name: CBC with Automated Diff EDMS 03/17 07:29 Order name: CBC with Automated Diff EDMS 03/17 07:29 Order name: CBC with Automated Diff EDMS 03/17 07:29 Order name: Lipid Profile EDMS 03/17 07:29 Order name: Lipid Profile EDMS 03/17 07:29 Order name: PTT, Activated Partial Thromb EDMS 03/17 07:29 Order name: PTT, Activated Partial Thromb EDMS 03/17 07:29 Order name: Troponin High Sensitivity EDMS 03/17 07:29 Order name: Troponin High Sensitivity EDMS 03/17 07:29 Order name: Troponin High Sensitivity EDMS 03/17 07:29 Order name: Troponin High Sensitivity EDMS 03/17 04:35 Order name: XRAY Chest (1 view) sp3 03/17 07:29 Order name: Echo with Doppler EDMS 03/17 07:29 Order name: EKG Electrocardiogram EDMS 03/17 07:29 Order name: EKG Electrocardiogram EDMS 03/17 07:29 Order name: EKG Electrocardiogram EDMS 03/17 07:29 Order name: EKG Electrocardiogram EDMS 03/17 04:35 Order name: Cardiac monitoring; Complete Time: 04:42 sp3 03/17 04:35 Order name: EKG - Nurse/Tech; Complete Time: 04:37 sp3 03/17 04:35 Order name: IV Saline Lock; Complete Time: 04:37 sp3 03/17 04:35 Order name: Labs collected and sent; Complete Time: 04:42 sp3 03/17 04:35 Order name: O2 Per Protocol; Complete Time: 04:42 sp3 03/17 04:35 Order name: O2 Sat Monitoring; Complete Time: 04:42 sp3 03/17 06:16 Order name: Garza; Complete Time: 06:16 kd3 Administered Medications: 04:56 Drug: Nitroglycerin Sublingual 0.4 mg Sublingual once Route: Sublingual; kd3 05:19 Drug: Diltiazem IVP 10 mg IVP once; Over 2 minutes Route: IVP; Site: right forearm; kd3 05:46 Drug: Acetaminophen PO 1000 mg PO once Route: PO; kd3 06:15 Drug: Furosemide IVP 20 mg IVP once; give over 2 minutes Route: IVP; Site: right kd3 forearm; 06:15 Drug: Diltiazem IVP 10 mg IVP once; Over 2 minutes Route: IVP; Site: right forearm; kd3 Disposition: 04:59 Critical Care:. sp3 Disposition Summary: 03/17/25 05:51 Hospitalization Ordered Notes: Hospitalization Status: Observation sp3 Provider: Aniceto Mcknight sp3 [facility] sp3 Condition: Stable sp3 Problem: an acute exacerbation sp3 Symptoms: have worsened sp3 Bed/Room Type: Standard sp3 Room Assignment: [facility](03/17/25 07:29) eb Diagnosis - Chest pain, atrial fibrillation with RVR sp3 Forms: - Medication Reconciliation Form sp3 - SBAR form sp3 - Leadership Thank You Letter sp3 Critical care time excluding procedures: 04:59 Critical care time: Bedside Care: 10 minutes, Consultation: 15 minutes, Family sp3 Intervention: 5 minutes. Total time: 30 minutes Signatures: Dispatcher [employer] Ariane Sweet Setul, MD MD sp3 Evelyne Rdz RN RN kd3 Alda Lindsey RN RN ha1 Corrections: (The following items were deleted from the chart) 07:29 05:51 sp3 eb
--- NOTE | 2025-03-17 05:51 | ER ---
Nurse's Notes [facility] Name: Joe Ricks Age: 64 yrs Sex: Male : 1960 Arrival Date: 03/17/2025 Time: 04:19 Bed 17 Private MD: Diagnosis: Chest pain, atrial fibrillation with RVR Presentation: 03/17 04:22 Chief complaint: Patient states: CHEST PAIN THAT STARTED ONE HOUR AGO. ha1 04:22 Coronavirus screen: Client denies travel out of the [place] in the last 14 days. Ebola ha1 Screen: No symptoms or risks identified at this time. 04:22 Method Of Arrival: Ambulatory ha1 04:22 Initial Sepsis Screen: Does the patient meet any 2 criteria? No. Patient's initial ha1 sepsis screen is negative. Does the patient have a suspected source of infection? No. Patient's initial sepsis screen is negative. Risk Assessment: Do you want to hurt yourself or someone else? Patient reports no desire to harm self or others. Onset of symptoms was March 17, 2025. 04:22 Acuity: RODNEY 2 ha1 Triage Assessment: 04:43 General: Appears uncomfortable, Behavior is cooperative. Pain: Complains of pain in ha1 chest Pain currently is 9 out of 10 on a pain scale. Neuro: Level of Consciousness is awake, alert, obeys commands, Oriented to person, place, time, situation. Cardiovascular: Reports chest pain, Capillary refill < 3 seconds Patient's skin is warm and dry. Respiratory: Airway is patent Respiratory effort is even, unlabored, Respiratory pattern is regular, symmetrical. Historical: - Allergies: 04:43 No Known Allergies; ha1 - PMHx: 04:43 Anxiety; Atrial fibrillation; Broken Neck; palpitations; restless leg syndrome; right ha1 hear loss; - PSHx: 04:43 3 plates in skull; cardioversion; ha1 - Immunization history:: Adult Immunizations up to date. - Infectious Disease History:: Denies. - Social history:: Smoking status: Patient reports the use of cigarette tobacco products, smokes one-half pack cigarettes per day. Screenin:06 [facility] ED Fall Risk Assessment (Adult) History of falling in the last 3 months, kd3 including since admission No falls in past 3 months (0 pts) Confusion or Disorientation No (0 pts) Intoxicated or Sedated No (0 pts) Impaired Gait No (0 pts) Mobility Assist Device Used No (0 pt) Altered Elimination No (0 pt) Score/Fall Risk Level 0 - 2 = Low Risk Maintained a safe environment. Abuse screen: Denies threats or abuse. Denies injuries from another. Nutritional screening: No deficits noted. Tuberculosis screening: No symptoms or risk factors identified. Assessment: 04:42 General: Appears uncomfortable. Pain: Pain does not radiate. Pain radiates to chest kd3 Pain began 1 hour ago. Cardiovascular: Capillary refill < 3 seconds. 05:42 General: Pt assisted to the restroom and back . kd3 06:29 General: Appears in no apparent distress. Neuro: Level of Consciousness is awake, kd3 alert, obeys commands, Oriented to person, place, time, situation. Cardiovascular: Capillary refill < 3 seconds Patient's skin is warm and dry. Respiratory: Airway is patent Trachea midline Respiratory effort is even, unlabored, Respiratory pattern is regular, symmetrical. 08:10 Reassessment: REPORT FAXED TO 406. bp Vital Signs: 04:22 BP 147 / 115; Pulse 124; Resp 20 S; Pulse Ox 97% on R/A; Weight 95.25 kg; Height 5 ft. ha1 10 in. ; Pain 9/10; 05:06 BP 135 / 103; Pulse 121; Resp 18; Pulse Ox 94% on R/A; kd3 05:19 BP 117 / 90; Pulse 98; Resp 18; Pulse Ox 93% on R/A; kd3 05:20 Temp 98.2(O); kd3 05:32 BP 115 / 90; Pulse 103; Resp 18; Pulse Ox 95% on R/A; kd3 06:16 BP 125 / 92; Pulse 97; Resp 18; Pulse Ox 96% on R/A; kd3 06:29 BP 128 / 91; Pulse 92; Resp 18; Pulse Ox 96% on R/A; kd3 08:10 BP 130 / 82; Pulse 86; Resp 12; Temp 97.9; Pulse Ox 96% ; bp 04:22 Body Mass Index 30.13 (95.25 kg, 177.8 cm) ha1 04:22 Pain Scale: Adult ha1 ED Course: 04:27 Patient arrived in ED. gm2 04:28 Jimmy Hernandez MD is Attending Physician. sp3 04:37 Evelyne Rdz, RN is Primary Nurse. kd3 04:42 Basic Metabolic Panel Sent. kd3 04:42 CBC with Diff Sent. kd3 04:42 LFT's Sent. kd3 04:42 Magnesium Sent. kd3 04:42 NT PRO-BNP Sent. kd3 04:42 PT-INR Sent. kd3 04:42 Troponin HS Sent. kd3 04:43 Triage completed. ha1 05:06 Patient has correct armband on for positive identification. Provided Education on: kd3 nitroglycerin . Client placed on continuous cardiac and pulse oximetry monitoring. NIBP monitoring applied. court recording monitor on. 05:06 Arm band placed on. kd3 05:07 No provider procedures requiring assistance completed. Patient maintains SpO2 kd3 saturation greater than 95% on room air. 05:15 XRAY Chest (1 view) In Process Unspecified. EDMS 05:50 Aniceto Mcknight MD is Hospitalizing Provider. sp3 06:16 Garza cath inserted, using sterile technique, 18 Fr., by ny, balloon inflated, to kd3 gravity drainage, returned clear yellow urine. Patient tolerated well. Administered Medications: 04:56 Drug: Nitroglycerin Sublingual 0.4 mg Sublingual once Route: Sublingual; kd3 05:19 Drug: Diltiazem IVP 10 mg IVP once; Over 2 minutes Route: IVP; Site: right forearm; kd3 05:46 Drug: Acetaminophen PO 1000 mg PO once Route: PO; kd3 06:15 Drug: Furosemide IVP 20 mg IVP once; give over 2 minutes Route: IVP; Site: right kd3 forearm; 06:15 Drug: Diltiazem IVP 10 mg IVP once; Over 2 minutes Route: IVP; Site: right forearm; kd3 Medication: 05:07 VIS not applicable for this client. kd3 Outcome: 05:51 Decision to Hospitalize by Provider. sp3 09:04 Patient left the ED. bp Signatures: Dispatcher [employer] EDMS Joe Barron, RN RN bp Jimmy Hernandez MD MD sp3 Evelyne Rdz, RN RN kd3 Alda Lindsey RN RN [facility] Suki Zelaya [facility]
[2025-03-17] MEDS ORDERED: FUROSEMIDE 20 MG/ 2ML VIAL ONE (05:52)
[2025-03-17] MEDS ORDERED: NITROGLYCERIN 0.4 MG/TAB SL PRN (07:16)
[2025-03-17] MEDS ORDERED: ACETAMINOPHEN 500 MG TAB PO PRN (07:16)
[2025-03-17] MEDS: ASPIRIN 325 MG TAB PO ONE (07:16)
--- NOTE | 2025-03-17 07:35 | RAD REPORT ---
eXAM: XR CHEST 1 VIEW DATE: 03/17/2025 4:35 AM CDT INDICATION: Chest Pain COMPARISON: None TECHNIQUE: Frontal chest radiograph FINDINGS: There is blunting of the costophrenic sulci. There are prominent streaky and patchy opacities in the lung bases. The cardiomediastinal silhouette is moderately enlarged. There is no acute bony abnormality. IMPRESSION: Cardiomegaly with dependent pulmonary edema, small pleural effusions, and bibasilar atelectatic vance es. Electronically signed by: Dilan Russell MD 03/17/2025 07:17 AM CDT RP [id number] Due to temporary technical issues with the PACS/The Smartphone Physical reporting system, reports are being ngozi d by the in-house radiologist without review as a courtesy to ensure prompt reporting the interpreting radiologist is fully responsible for the content of the report Transcribed Date/Time: 03/17/2025 7:35 AM
[2025-03-17 07:48] LABS: HDL Cholesterol 60.0 mg/dL (40-60); LDL Cholesterol, Calculated 15.0 mg/dL (<130); LDL Cholesterol,Calc NonReport 15.0
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
[2025-03-17] MEDS: ENOXAPARIN 100 MG/ML SYR SQ SCH (09:00)
[2025-03-17] MEDS: NICOTINE 14 MG/PAT TD SCH (09:00)
[2025-03-17 10:16] VITALS: BMI 29.8
[2025-03-17] MEDS: FUROSEMIDE 40 MG/4 ML VIAL IV SCH (16:18)
[2025-03-17] MEDS: SOTALOL HCL 80 MG TAB PO SCH (17:47)
[2025-03-17] MEDS ORDERED: SOTALOL HCL 80 MG TAB PO SCH (18:00)
[2025-03-18] MEDS: MORPHINE 4 MG/ML SYR IV PRN (00:33)
[2025-03-18 06:07] LABS: Absolute Lymphocytes (CBC) 1.8 K/uL (0.7-4.9); Hematocrit 41.5 % (39.6-49.0); Hemoglobin 14.2 g/dL (13.6-17.9); MCH 34.5 pg (27.0-35.0); MCHC 34.3 g/dL (32.0-36.0); MCV 100.5 fL (80-100); MPV 8.9 fL (7.6-11.3); Nucleated RBC Absolute Count 0.0 (0-0); Nucleated Red Blood Cells % 0.1 % (0-0); RBC Red Blood Cell Count 4.13 M/uL (4.33-5.43); White Blood Count 5.00 thou/uL (4.3-10.9)
[2025-03-18 06:22] LABS: Anion Gap 8.5 mEq/L (5.0-15.0); BUN Blood Urea Nitrogen 13.0 mg/dL (7-18); Glucose Level 107.0 mg/dL (74-106); Potassium 3.5 mEq/L (3.5-5.1)
[2025-03-18] MEDS: METOPROLOL TARTRATE 5 MG/5 ML INJ IV STA ×2 (09:57→11:52)
[2025-03-18] MEDS: Magnesium Sulfate 2gm IVPB 2 G/50 ML BAG IV ONE (09:58)
[2025-03-18] MEDS: ASPIRIN EC 81 MG TAB PO SCH (09:58)
--- NOTE | 2025-03-18 14:26 | P.PN ---
Subjective Date of Service: 03/18/25 Primary Care Provider: Melissa Chinchilla NP Chief Complaint: Fatigue Subjective: No new changes Assessed patient sitting up in bed on room air in no apparent distress, appearing mildly agitated and complaining of fatigue. Patient denied any palpitations, chest pain, N/V, visual changes. Noted to be tachycardic on exam. Review of Systems 10-point ROS is otherwise unremarkable Physical Examination - Vital Signs Temperature: 98.2 F Blood Pressure: 139/105 Pulse: 132 Respirations: 18 Pulse Ox (%): 94 - Physical Exam General: Alert, In no apparent distress, Oriented x3, Cooperative, Other (Mild agitation) HEENT: Atraumatic, Normocephalic, Mucous membr. moist/pink, Other (Eyepatch left eye) Neck: Supple, 2+ carotid pulse no bruit, JVD not distended, No Thyromegaly Respiratory: Clear to auscultation bilaterally, Normal air movement Cardiovascular: No edema, Normal pulses, No gallops, No rubs, No murmurs, Irregular heart rate/rhythm (Tachycardic) Capillary refill: Brisk Gastrointestinal: Normal bowel sounds, Soft and benign, Non-distended, W/out hepatosplenomegaly Musculoskeletal: No clubbing, No swelling, No contractures Integumentary: No rashes, No breakdown, No significant lesion Neurological: Normal speech, Normal tone, Sensation intact, Cranial nerves 3-12 intact, Normal affect Urinary: Garza catheter External genitalia: Deferred Rectal: Deferred - Studies Medications List Reviewed: No Assessment And Plan - Plan Patient is a pleasant 64-year-old male with past medical history of anxiety, atrial fibrillation, broken neck, palpitations, restless leg syndrome, diplopia left eye, who presents to the ER today complaining of rapid heartbeat, and increased bilateral lower extremities pitting edema admitted for cardiac monitoring due to episode of A-fib RVR and diuresis for acute on chronic CHF exacerbation. 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 -EKG ordered, A-fib with controlled rate after receiving Cardizem 10 mg IV x 2 in the ED prior to admission -Troponin 17.6, 16.6, 15, flat trend -BNP 3079 -Echocardiography ordered, will follow. -Strict intake and output chart. -Fluid restriction <1500 ml/day. -Lasix: Noncompliant outpatient. Given furosemide 20 mg IV x 1 in ED. Ordered furosemide 40 mg IV twice daily for continuation. -B azam: Continue home sotalol 80 mg twice daily -AceI/ARB/ Arni: Denies, per chart review 1 year ago patient unable to tolerate due to hypotension -SGLT-2: None Restart Eliquis 5 mg twice daily Patient had a recurrence of A-fib RVR on 03/11 7 AM. Heart rate noted to be 140-[address] Peraza notified. Initially patient given one-time dose of metoprolol 2.5 mg IV x 1 which reduced heart rate to 130s. Subsequent dose of metoprolol 5 mg IV x 1 now has heart rate 110-120. Pending further recs with Dr. Peraza. Tobacco use disorder Unreceptive to cessation counseling Smokes half pack a day for approximately 50 years Nicotine replacement patch daily 14 mg Dispo: Diuresis Cardiology recommendations Anticipate home no need Discharge Plan: Home Plan to discharge in: 24 Hours - Code Status/Comfort Care Code Status Assessed: No Critical Care: No
[2025-03-18] MEDS ORDERED: AMIODARONE HCL 900 MG in Dextrose 5%-Water 482 ML IV SCH (15:00)
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
[2025-03-18] MEDS: AMIODARONE HCL 150 MG in D5W 100 ML IV STA (15:39)
[2025-03-18] MEDS ORDERED: METOPROLOL TARTRATE 5 MG/5 ML INJ IV PRN (17:19)
[2025-03-18] MEDS: APIXABAN 5 MG TABLET PO SCH (20:34)
[2025-03-19 06:56] LABS: Anion Gap 6.2 mEq/L (5.0-15.0); BUN Blood Urea Nitrogen 16.0 mg/dL (7-18); Glucose Level 98.0 mg/dL (74-106); Potassium 3.2 mEq/L (3.5-5.1)
[2025-03-19 08:02] LABS: Absolute Lymphocytes (CBC) 1.5 K/uL (0.7-4.9); Hematocrit 39.9 % (39.6-49.0); Hemoglobin 13.8 g/dL (13.6-17.9); MCH 34.6 pg (27.0-35.0); MCHC 34.5 g/dL (32.0-36.0); MCV 100.3 fL (80-100); MPV 9.1 fL (7.6-11.3); Nucleated RBC Absolute Count 0.0 (0-0); Nucleated Red Blood Cells % 0.6 % (0-0); RBC Red Blood Cell Count 3.98 M/uL (4.33-5.43); White Blood Count 3.90 thou/uL (4.3-10.9)
[2025-03-19] MEDS: POTASSIUM 25 MEQ EFFERV TAB PO ONE (09:05)
[2025-03-19 09:29] LABS: Anisocytosis 2+; Blood Morphology Comment NOTED (NOT SEEN); Poikilocytosis 1+; White Blood Cell Scan OK (OK)
--- NOTE | 2025-03-19 15:13 | P.PN ---
Date of Service: 03/19/25 Subjective Primary Care Provider: Melissa Chinchilla NP Chief Complaint: Fatigue Subjective: No new changes Assessed patient sitting up in bed on room air in no apparent distress, appearing mildly agitated and complaining of fatigue. Patient denied any palpitations, chest pain, N/V, visual changes. Noted to be tachycardic on exam. Review of Systems 10-point ROS is otherwise unremarkable Physical Examination - Vital Signs Temperature: 98.2 F Blood Pressure: 139/105 Pulse: 132 Respirations: 18 Pulse Ox (%): 94 - Physical Exam General: Alert, In no apparent distress, Oriented x3, Cooperative, Other (Mild agitation) HEENT: Atraumatic, Normocephalic, Mucous membr. moist/pink, Other (Eyepatch left eye) Neck: Supple, 2+ carotid pulse no bruit, JVD not distended, No Thyromegaly Respiratory: Clear to auscultation bilaterally, Normal air movement Cardiovascular: No edema, Normal pulses, No gallops, No rubs, No murmurs, Irregular heart rate/rhythm (Tachycardic) Capillary refill: Brisk Gastrointestinal: Normal bowel sounds, Soft and benign, Non-distended, W/out hepatosplenomegaly Musculoskeletal: No clubbing, No swelling, No contractures Integumentary: No rashes, No breakdown, No significant lesion Neurological: Normal speech, Normal tone, Sensation intact, Cranial nerves 3-12 intact, Normal affect Urinary: Garza catheter External genitalia: Deferred Rectal: Deferred - Studies Medications List Reviewed: No Assessment And Plan - Plan Patient is a pleasant 64-year-old male with past medical history of anxiety, atrial fibrillation, broken neck, palpitations, restless leg syndrome, diplopia left eye, who presents to the ER today complaining of rapid heartbeat, and increased bilateral lower extremities pitting edema admitted for cardiac monitoring due to episode of A-fib RVR and diuresis for acute on chronic CHF exacerbation. 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 -EKG ordered, A-fib with controlled rate after receiving Cardizem 10 mg IV x 2 in the ED prior to admission -Troponin 17.6, 16.6, 15, flat trend -BNP 3079 -Echocardiography ordered, will follow. -Strict intake and output chart. -Fluid restriction <1500 ml/day. -Lasix: Noncompliant outpatient. Given furosemide 20 mg IV x 1 in ED. Ordered furosemide 40 mg IV twice daily for continuation. -B azam: DC sotalol 80 mg twice daily Per discussion with cardiology given amiodarone bolus, followed by maintenance drip for 24 hours. Transition to p.o. amiodarone 200 mg twice daily and monitor. -AceI/ARB/ Arni: Juliana, per chart review 1 year ago patient unable to tolerate due to hypotension -SGLT-2: None Continue Eliquis 5 mg twice daily Tobacco use disorder Unreceptive to cessation counseling Smokes half pack a day for approximately 50 years Nicotine replacement patch daily 14 mg Dispo: Diuresis Cardiology recommendations Anticipate home no need Discharge Plan: Home Plan to discharge in: 24 Hours - Code Status/Comfort Care Code Status Assessed: No Critical Care: No
[2025-03-19] MEDS: AMIODARONE HCL 900 MG in Dextrose 5%-Water 482 ML IV SCH (15:19)
--- NOTE | 2025-03-19 18:43 | PN ---
Date of Progress Note: 03/19/2025 Subjective: Seen by bedside. Doing well. Heart rate is better with amiodarone. Review of Systems: No chest pain. Mild shortness of breath. No nausea, vomiting, diarrhea. No abdominal pain. No dys uria, polyuria, or urgency. All other systems reviewed, they are negative. Physical Examination: Vital Signs: Reviewed. Head and Neck: Pupils are equal, reactive to light. Intact eye movements. No JVD. No cervical lym phadenopathy. Neck is supple. Thyroid is not enlarged. Lungs: Clear to auscultation bilaterally. No rhonchi, wheezing, or crackles. No accessory muscle u se. Heart: Irregularly irregular. No extra sounds. Abdomen: Soft, nontender. Bowel sounds positive. No organomegaly. No masses or hernia. No rigidi ty or rebound. Extremities: No clubbing or cyanosis. Positive edema. Neuro: Alert, awake, oriented x3. No acute focal deficits appreciated. Investigations: Labs reviewed. Assessment And Recommendation: 1. Atrial fibrillation with rapid ventricular response, on amiodarone drip after 24 hours completed t o switch to 200 mg twice a day and to add metoprolol 25 mg twice a day and Eliquis 5 mg tw ice a day. Keep n.p.o. past midnight to plan for JORGE guided cardioversion tomorrow. 2. Congestive heart failure exacerbation, on Lasix. Monitor BUN, creatinine, electrolytes, and repla ce potassium. SR/MODL Voice ID: [id number] Report ID: [id number]
[2025-03-19] MEDS ORDERED: AMIODARONE HCL 200 MG TAB PO SCH (21:00)
[2025-03-20 07:09] LABS: Absolute Lymphocytes (CBC) 1.6 K/uL (0.7-4.9); Hematocrit 38.7 % (39.6-49.0); Hemoglobin 13.0 g/dL (13.6-17.9); MCH 34.0 pg (27.0-35.0); MCHC 33.7 g/dL (32.0-36.0); MCV 101.0 fL (80-100); MPV 8.9 fL (7.6-11.3); Nucleated RBC Absolute Count 0.0 (0-0); Nucleated Red Blood Cells % 0.1 % (0-0); RBC Red Blood Cell Count 3.83 M/uL (4.33-5.43); White Blood Count 3.80 thou/uL (4.3-10.9)
[2025-03-20 07:47] LABS: Anion Gap 5.4 mEq/L (5.0-15.0); BUN Blood Urea Nitrogen 16.0 mg/dL (7-18); Glucose Level 96.0 mg/dL (74-106); Potassium 3.4 mEq/L (3.5-5.1)
[2025-03-20] MEDS: AMIODARONE HCL 200 MG TAB PO SCH (09:40)
[2025-03-20] MEDS: POTASSIUM 25 MEQ EFFERV TAB PO ONE (09:47)
[2025-03-20] MEDS ORDERED: LIDOCAINE 1% MPF 5 ML VIAL ONE (10:53)
[2025-03-20] MEDS: NA CHLORIDE 0.9% 500 ML ONE (11:03)
[2025-03-20] MEDS: Magnesium Sulfate 2gm IVPB 2 G/50 ML BAG IV ONE (11:41)
--- NOTE | 2025-03-20 11:45 | P.PN ---
Subjective Date of Service: 03/20/25 Primary Care Provider: Melissa Chinchilla NP Chief Complaint: Fatigue Subjective: No new changes, No C/O voiced, Tolerating diet Review of Systems 10-point ROS is otherwise unremarkable Physical Examination - Vital Signs Temperature: 97.7 F Blood Pressure: 113/76 Pulse: 102 Respirations: 18 Pulse Ox (%): 96 - Physical Exam General: Alert, In no apparent distress HEENT: Atraumatic, PERRLA, EOMI Neck: Supple, JVD not distended Respiratory: Clear to auscultation bilaterally, Normal air movement Cardiovascular: Normal S1 S2, Irregular heart rate/rhythm Gastrointestinal: Normal bowel sounds, No tenderness Musculoskeletal: No tenderness Integumentary: No rashes Neurological: Normal speech, Normal tone, Normal affect Lymphatics: No axilla or inguinal lymphadenopathy - Studies Medications List Reviewed: No Assessment And Plan - Current Problems (Diagnosis) (1) Chronic combined systolic (congestive) and diastolic (congestive) heart failure Current Visit: Yes Status: Acute Plan: currently euvolemic on exam continue lopressor 25 mg po BID Switch to lasix 40 mg po BID (2) Atrial fibrillation Current Visit: No Status: Acute Plan: Attempted JORGE DCCV x2, Patient converted to sinus rhythm shortly then went back into AF, rate controlled switch to amidoarone 200 mg po bid continue lopressor 25 mg po BID Continue Eliquis 5 mg po BID Continue to monitor on tele outpatient evaluation for an ablation. (3) Mitral regurgitation Current Visit: No Status: Acute
[2025-03-20 12:23] VITALS: O2SAT 96
--- NOTE | 2025-03-20 12:29 | P.DS ---
Admission Date: 03/18/25 Discharge Date: 03/20/25 Primary Care Provider: Melissa Chinchilla NP Disposition: ROUTINE DISCHARGE Discharge Condition: GOOD Reason for Admission: Fatigue Consultations: Cardiology Procedures: JORGE guided cardioversion with Dr. Addison 03/20/2025 Brief History of Present Illness: Patient is a pleasant 64-year-old male with past medical history of anxiety, atrial fibrillation, broken neck, palpitations, restless leg syndrome, diplopia left eye, who presents to the ER today complaining of rapid heartbeat, and increased bilateral lower extremities pitting edema. Patient states he was awoken approximately 1 AM and felt his heart beating really fast, palpitations with associated shortness of breath and chest pain rated 9/10. On arrival in ER, patient was in A-fib with RVR. Patient is on sotalol 80 mg p.o. twice daily, but is unclear if patient takes his medication regularly as ordered. Patient received Cardizem 10 mg IVP x 2 and obtained heart rate stable around 90 at time of assessment. During admission assessment, patient was fully awake, alert and oriented x 3, chest pain is improved, but still remains approximately 3-10, denies of any rapid heart rate, palpitations, shortness of breath. Patient have 2+ pitting edema bilateral lower extremities, denies of any history of CHF. Patient in no acute distress at this time. 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 Ricks was given an x-ray which showed signs of pulmonary edema. An EKG was ordered showing that he was in atrial fibrillation which is chronic, however his rate was rapid. He was given 2 IV push boluses of Cardizem 10 mg in the ED and able to achieve rate control below 110 bpm. A troponin was trended w ith a flat trend starting at 17. on admission patient's BNP was noted to be 3079 and he was requiring supplemental O2 to maintain O2 sats. An echocardiogram was considered, but not completed. Instead the patient underwent a JORGE guided cardioversion. As a result he temporarily converted into normal sinus rhythm, however, then returned to A-fib CVR. His intake and output was monitored during admission. His diet was restricted to 1500 mL a day fluid restriction to help control fluid status. Patient reports not being compliant with previously prescribed Lasix outpatient. He was diuresed with IV furosemide. Plan is to continue Lasix 40 mg p.o. twice daily upon discharge. Patient counseled on the importance of taking this medication as prescribed. Prior to this admission Mr. Ricks was taking sotalol 80 mg twice a day. Upon discharge this will transition to amiodarone 200 mg p.o. twice daily with metoprolol XL 25 mg twice daily. He will continue his Eliquis 5 mg twice daily which was continued during hospitalization as well. Tobacco use disorder Unreceptive to cessation counseling Smokes half pack a day for approximately 50 years Nicotine replacement patch daily 14 mg during hospitalization Vital Signs/Physical Exam: Temp Pulse Resp BP Pulse Ox 97.7 F 57 12 104/56 L 96 03/20/25 11:45 03/20/25 12:17 03/20/25 12:17 03/20/25 12:17 03/20/25 11:45 Laboratory Data at Discharge: WBC 3.80 thou/uL (4.3-10.9) L 03/20/25 06:50 Hgb 13.0 g/dL (13.6-17.9) L 03/20/25 06:50 Hct 38.7 % (39.6-49.0) L 03/20/25 06:50 Plt Count 65 thou/uL (152-406) L 03/20/25 06:50 PT 18.7 SECONDS (10-13.0) H 03/17/25 04:39 INR 1.68 03/17/25 04:39 APTT 36.9 SECONDS (27.2-37.4) 03/18/25 05:47 Sodium 140 mEq/L (136-145) 03/20/25 06:50 Potassium 3.2 mEq/L (3.5-5.1) L 03/20/25 08:56 BUN 16 mg/dL (7-18) 03/20/25 06:50 Creatinine 0.73 mg/dL (0.70-1.30) 03/20/25 06:50 Glucose 96 mg/dL (74-106) 03/20/25 06:50 Magnesium 1.4 mg/dL (1.6-2.4) L 03/20/25 06:50 Total Bilirubin 3.5 mg/dL (0.2-1.0) H 03/17/25 04:39 AST 44 U/L (15-37) H 03/17/25 04:39 ALT 23 U/L (16-61) 03/17/25 04:39 Alkaline Phosphatase 71 U/L (45-117) 03/17/25 04:39 Triglycerides 36 mg/dL (<150) 03/17/25 04:39 Cholesterol 82 mg/dL (<200) 03/17/25 04:39 HDL Cholesterol 60 mg/dL (40-60) 03/17/25 04:39 Cholesterol/HDL Ratio 1.37 03/17/25 04:39 Home Medications: Apixaban [Eliquis] 5 mg PO BID #60 tab 02/19/24 Amiodarone HCl [Cordarone*] 200 mg PO BID #180 tab 03/20/25 Apixaban [Eliquis] 5 mg PO BID #0 03/20/25 Furosemide [Lasix*] 40 mg PO BIDL #60 tab 03/20/25 Metoprolol Tartrate [Lopressor*] 25 mg PO BID 6AM 6PM #180 tab 03/20/25 New Medications: Amiodarone HCl [Cordarone*] 200 mg PO BID #180 tab Furosemide [Lasix*] 40 mg PO BIDL #60 tab Metoprolol Tartrate [Lopressor*] 25 mg PO BID 6AM 6PM #180 tab Physician Discharge Instructions: PROBLEM: A-fib with RVR GOAL: Clear understanding of disease process, keep heart rate controlled under 110 bpm INSTRUCTIONS: Instructed to follow-up with cardiology. They would like to see on outpatient basis to evaluate you for an ablation to get better control of your heart rate and ideally place her back into a normal sinus rhythm. There have been medication changes to your regimen during this hospitalization. They are below: Discontinue taking: Sotalol 80 mg Start taking: Amiodarone 200 mg twice daily Metoprolol 25 mg twice daily Continue taking: Eliquis 5 mg twice daily Diet: Heart healthy cardiac diet Activity: Resume normal activities as tolerated If you feel your heart beating too fast again please contact your wireless sales consultant and/or proceed directly to the emergency department for evaluation. Additionally, if you have any chest pain, shortness of breath, dizziness, or other concerning symptoms make sure you seek help immediately. Diet: AHA Activity: Ad mindy Followup: Lucie Becerra NP [Primary Care Provider] - 2-3 Days Miguel Angel Barajas MD [ACTIVE - CAN ADMIT] - 1-2 Weeks
[2025-03-20 17:41] VITALS: BP 114/65; TEMP 98.3
[2025-03-20] MEDS ORDERED: METOPROLOL TAR 25 MG TAB PO SCH (18:00)
[2025-03-20] MEDS ORDERED: AMIODARONE HCL 200 MG TAB PO SCH (21:00)
--- NOTE | 2025-03-21 01:10 | OP ---
Date of Procedure: 03/20/2025 Surgeon: Miguel Angel Barajas Procedure Performed: Synchronized JORGE cardioversion. Complications: None. Estimated Blood Loss: None. Sedation: Done by Anesthesia team. Description Of Procedure: After risks, benefits, and alternatives were explained to the patient, the patient agreed to proceed with procedure and signed informed consent. The patient was brought back to the OR. Time-out was performed. Sedation was administered by Anesthesia Team. Next, JORGE probe w as inserted. Images were obtained and then JORGE probe was out. Synchronized cardioversion was attemp saadia x2 with 200, followed by 250 joules. The patient converted into sinus rhythm shortly and then he went back into atrial fibrillation. The patient was moved back to Recovery in stable condition. Assessment And Plan: 1. Atrial fibrillation, status post failed JORGE cardioversion x2. 2. Plan is to continue amiodarone 200 p.o. b.i.d., metoprolol, and Eliquis. MARK Voice ID: [id number] Report ID: [id number]
[2025-03-21] MEDS ORDERED: FUROSEMIDE 40 MG TABLET PO SCH (09:00)
== END 2025-03-20 18:00 | disposition home or self-care (01) | DRG 308 ==
LOC: ER 04:19 → ERHOLD 07:14 → 4TH 08:11 → OBSVTOIN 03-18 16:18
PROVIDERS: ADMIT Hospitalist; ATTEND Hospitalist
PROC: 5A2204Z Restoration of Cardiac Rhythm, Single (ICD-10-PCS; principal; 2025-03-20)
PROC: B24BZZ4 Ultrasonography of Heart with Aorta, Transesophageal (ICD-10-PCS; 2025-03-20)
DX: I48.20 Chronic atrial fibrillation, unspecified (principal); I50.43 Acute on chronic combined systolic (congestive) and diastolic (congestive) heart failure; H53.2 Diplopia; G25.81 Restless legs syndrome; I34.0 Nonrheumatic mitral (valve) insufficiency; I25.10 Atherosclerotic heart disease of native coronary artery without angina pectoris; T50.1X6A Underdosing of loop [high-ceiling] diuretics, initial encounter; F17.210 Nicotine dependence, cigarettes, uncomplicated; Z79.01 Long term (current) use of anticoagulants; Z79.899 Other long term (current) drug therapy; Z91.148 Patient's other noncompliance with medication regimen for other reason
CPT/HCPCS: 36415; 51702; 71045; 80048; 80061; 80076; 83735; 83880; 84132; 84484; 85025; 85610; 85730; 92960; 93005; 93312; 96374; 96375; 99285; G0378; J0282; J1650; J1938; J2003; J2704; J3475; J7040; J7060